=== PATIENT | female | born 1945 | race Caucasian/White ===

== ENCOUNTER → 2017-02-24 | Outpatient (CLI) | payer BC, MEDICARE ==
[~2017-02-24] MED LIST: AML5T; AMLO10TA82 PO; ASP81TEC PO; CARV12.53 PO; CATHETER FLUSH 10 ML SYR IV PRN; HCT25T; IBP200T; MTP25TSR; MULT1CAP27 PO; NITR0.4T12 SL; OLME20TA21 PO; OMEG-12 PO; REGADENOSON 0.4 MG/5 ML SYR (LEXISCAN) IV ONE
[2017-02-24 13:40] VITALS: BP 176/73
[2017-02-24 13:47] VITALS: BP 152/95
--- NOTE | 2017-02-25 11:15 | STRESS TEST ---
DATE OF SERVICE: 02/24/2017 LEXISCAN MYOVIEW STRESS TEST REPORT REFERRING PHYSICIAN: Dr. Angela Verma. Baseline heart rate is 67. Baseline blood pressure 176/73. Baseline EKG is sinus rhythm with no ischemic changes. In summary, the patient was injected with 10.61 mCi of technetium-99 Myoview and the resting images were obtained. Then, the patient received 0.4 mg of Lexiscan followed by 30.3 mCi of technetium-99 Myoview. Throughout the test, there were no EKG changes. The resting and stress images were reviewed and compared in the short axis, horizontal long axis, and vertical long axis views. Review of the images showed breast attenuation with no significant ischemia or infarction. SSS is 1, SDS 1, TID value 1.17. On the gated images, the left ventricle appeared to be in normal size with normal contractility, calculated ejection fraction 69%. CONCLUSION: 1. The patient tolerated Lexiscan well. 2. No ischemia or infarction on SPECT images. 3. Normal left ventricular size with normal contractility. Calculated ejection fraction is 69%. Job ID: [id number] DocumentID: [id number] Dictated Date: 02/24/2017 17:56:37 Home Care Rn Date: 02/24/2017 22:23:07 Dictated By: ALISON MAURO MD
== END ==
LOC: CARD 09:44
PROVIDERS: ATTEND Physician Assistant
DX: I25.10 Atherosclerotic heart disease of native coronary artery without angina pectoris (principal); I10 Essential (primary) hypertension; E78.2 Mixed hyperlipidemia
CPT/HCPCS: 78452; 93017; 93306

== ENCOUNTER → 2019-07-11 | Outpatient (CLI) | payer BC, MEDICARE ==
[~2019-07-11] MED LIST changes: -CATHETER FLUSH 10 ML SYR IV PRN; -REGADENOSON 0.4 MG/5 ML SYR (LEXISCAN) IV ONE
--- NOTE | 2019-07-11 15:58 | Diagnostic Imaging Report ---
CT CHEST WO TECHNIQUE: Multiple contiguous axial images were obtained through the chest without the use of intravenous contrast. All CT scans use one or more of the following dose optimizing techniques: automated exposure control, MA and/or KvP adjustment based on a patient size and exam type, or iterative reconstruction. INDICATION: Dyspnea on exertion. History of smoking. COMPARISON: None available. FINDINGS: Lungs and airway: No endoluminal nodule within the trachea. Centrilobular emphysema is noted. There is near total consolidation within the right lower lobe with associated volume loss. Subtotal relaxation atelectasis within the middle lobe is also seen. Small amount of atelectasis is present in the lingula and left lower lobe. 4 mm left lower lobe pulmonary nodule is present. No suspicious pulmonary mass or nodule. Pleura: Mxafl-rl-tfqiywjp-sized right pleural effusion has no features of loculation. No pleural nodularity is present. Trace left pleural effusion. Heart and mediastinum: Visualized aspects of the thyroid are normal. No supraclavicular or axillary lymphadenopathy. There is an enlarged lower right paratracheal lymph node measuring 1.1 cm. This is likely reactive in nature. No additional hilar lymphadenopathy. No juxtaphrenic lymphadenopathy. Heart is enlarged without pericardial effusion. Extensive atherosclerotic plaquing of the aortic root. Coronary artery calcifications are also noted. Upper abdomen: Atherosclerotic aorta. Prior postoperative changes in the transverse colon. Musculoskeletal: No worrisome focal osseous lesions in the chest. IMPRESSION: 1. Ctxoq-ln-dlyntulq right and trace left pleural effusions. 2. Near total consolidation with volume loss in the right lower lobe is likely due to relaxation atelectasis due to effusion. Underlying infection or neoplasm remains in the differential. Therefore, advised a follow-up CT chest with contrast in 4-6 weeks for reassessment. Dictated by: Dictated on workstation # [id number]
== END ==
LOC: RAD 13:31
PROVIDERS: ATTEND Nurse Practitioner Family
DX: J18.8 Other pneumonia, unspecified organism (principal); J90 Pleural effusion, not elsewhere classified; J18.1 Lobar pneumonia, unspecified organism; Z87.891 Personal history of nicotine dependence
CPT/HCPCS: 71250

== ENCOUNTER → 2019-08-15 | Outpatient (CLI) | payer BC, MEDICARE ==
--- NOTE | 2019-08-15 14:44 | Diagnostic Imaging Report ---
PROCEDURE: CT chest without contrast. TECHNIQUE: Multiple contiguous axial images were obtained through the chest without the use of intravenous contrast. Auto Exposure Controls were utilized during the CT exam to meet ALARA standards for radiation dose reduction. INDICATION: Disorders of the lung, pneumonia, pleural effusion, abnormal prior imaging COMPARISON: 08/15/2019 FINDINGS: A precarinal lymph node is again noted which is mildly enlarged measuring 1.2 cm in short dimension, similar to the prior examination. No new adenopathy within the chest. Extensive vascular calcifications within the thoracic aorta and its branch vessels, including within the coronary arteries. The heart is mildly enlarged, though stable. Trace pericardial fluid, stable. Trace left pleural effusion, improved from the prior examination. Small right pleural effusion, dependently layering, improved from the prior exam. No pneumothorax. Mild left basilar scarring and/or atelectasis, particularly within the lingula. Persistent opacities and consolidation are present within the right lower lobe and right middle lobe. This appears significantly improved though not completely resolved since the prior examination. No new focal pulmonary opacity or nodule. Tiny hiatal hernia. Right-sided abdominal wall hernia is noted anteriorly, though this is only partially visualized. Extensive vascular calcifications within the abdomen. Scattered osseous degenerative changes without acute osseous abnormality. IMPRESSION: Significantly improved though persistent small right basilar pleural effusion with adjacent consolidation within the right lower lobe. This is again favored to relate to relaxation atelectasis secondary to the pleural effusion. Radiographic follow-up is recommended in addition to 4-6 weeks to reevaluate. Trace left pleural effusion with adjacent scarring and/or atelectasis, improved from the prior exam. Stable mediastinal adenopathy. Again, this is favored to be reactive in nature. Partially visualized anterior right abdominal wall hernia. Stable cardiomegaly with trace pericardial fluid. Dictated by: Dictated on workstation # [id number]
== END ==
LOC: RAD 13:58
PROVIDERS: ATTEND Nurse Practitioner Family
DX: J90 Pleural effusion, not elsewhere classified (principal); R91.8 Other nonspecific abnormal finding of lung field; J98.4 Other disorders of lung; R06.89 Other abnormalities of breathing; R59.0 Localized enlarged lymph nodes; K43.9 Ventral hernia without obstruction or gangrene; I51.7 Cardiomegaly
CPT/HCPCS: 71250

== ENCOUNTER → 2019-10-23 | Outpatient (CLI) | payer BC, MEDICARE ==
--- NOTE | 2019-10-23 14:13 | Diagnostic Imaging Report ---
EXAMINATION: CT Chest without contrast. TECHNIQUE: Multiple contiguous axial images were obtained through the chest without the use of intravenous contrast. All CT scans use one or more of the following dose optimizing techniques: automated exposure control, MA and/or KvP adjustment based on a patient size and exam type, or iterative reconstruction. HISTORY: PLEURAL EFFUSION COMPARISON: 08/15/2019. FINDINGS: There is no edema or pneumonia. There is a stable small right pleural effusion with overlying atelectasis. No pneumothorax. No suspicious nodules. The left ventricle is dilated. There are moderate coronary artery calcifications. No pericardial effusion. Aorta is normal in caliber. There is no axillary or supraclavicular lymphadenopathy. There is a stable 11 mm right lower paratracheal lymph node. Limited views of the upper abdomen show a nodular liver surface contour suggestive of cirrhosis. There is a right upper quadrant ventral hernia. There are no suspicious osseus lesions. IMPRESSION: 1. Stable small right pleural effusion with overlying atelectasis. 2. Nodular liver surface suggestive of cirrhosis. Dictated by: Dictated on workstation # [id number]
== END ==
LOC: RAD 13:30
PROVIDERS: ATTEND Nurse Practitioner Family
DX: J90 Pleural effusion, not elsewhere classified (principal); J98.4 Other disorders of lung; J98.11 Atelectasis; R91.8 Other nonspecific abnormal finding of lung field; Z87.891 Personal history of nicotine dependence
CPT/HCPCS: 71250

== ENCOUNTER → 2020-07-02 | Outpatient (CLI) | payer BC, MEDICARE ==
--- NOTE | 2020-07-02 15:08 | Diagnostic Imaging Report ---
EXAMINATION: CT chest wo. TECHNIQUE: Multiple contiguous axial images were obtained through the chest without the use of intravenous contrast. All CT scans use one or more of the following dose optimizing techniques: automated exposure control, MA and/or KvP adjustment based on a patient size and exam type, or iterative reconstruction. INDICATION: Breast cancer. Pleural effusion. COMPARISON: CT chest of 10/23/2019. FINDINGS: Lungs and airway: No endoluminal nodule within the trachea. No pulmonary mass or nodules have developed. Subtotal relaxation atelectasis in the right lower lobe overlying the pleural effusion is unchanged. Pleura: Stable small right pleural effusion. No left pleural effusion. Heart and mediastinum: No supraclavicular or axillary lymphadenopathy. Stable 11 mm right lower paratracheal lymph node. Stable enlargement of the left ventricle. No pericardial effusion. Moderate coronary artery calcifications are unchanged. Extensive atherosclerosis is similar. Upper abdomen: Nodular liver remains compatible with cirrhosis. No acute abnormality in the upper abdomen is appreciated. Musculoskeletal: No concerning focal osseous lesions. IMPRESSION: 1. Stable small right pleural effusion with subjacent atelectasis. 2. No change to indicate intrathoracic metastases. 3. Unchanged cirrhosis. Dictated by: Dictated on workstation # [id number]
== END ==
LOC: RAD 13:17
PROVIDERS: ATTEND Nurse Practitioner Family
DX: C50.919 Malignant neoplasm of unspecified site of unspecified female breast (principal); J44.9 Chronic obstructive pulmonary disease, unspecified; J90 Pleural effusion, not elsewhere classified; K74.60 Unspecified cirrhosis of liver
CPT/HCPCS: 71250

== ENCOUNTER → 2021-02-18 | Outpatient (CLI) | payer BC, MEDICARE | LOC: CARD 14:00 | PROVIDERS: ATTEND Physician Assistant | DX: I11.9 Hypertensive heart disease without heart failure (principal); I34.0 Nonrheumatic mitral (valve) insufficiency | CPT/HCPCS: 93306 ==

== ENCOUNTER 2022-01-08 08:50 | Inpatient (IN) | payer BC, MEDICARE ==
[~2022-01-08] VITALS: Ht 147.3 cm; Wt 68.0 kg
[2022-01-08 13:20] VITALS: BP 187/78
[2022-01-08] MEDS ORDERED: CALCIUM CARBONATE 500 MG (TUMS) TAB.CHEW PO PRN (13:45)
[2022-01-08] MEDS ORDERED: guaiFENesin/CODEINE (ROBITUSSIN AC) 10ML UDC PO PRN (13:45)
[2022-01-08] MEDS ORDERED: LACTULOSE SYRUP 10GM/15ML (ENULOSE) 30ML UDC PO PRN (13:45)
[2022-01-08] MEDS ORDERED: BISACODYL 10 MG SUPP (DULCOLAX) PR PRN (13:45)
[2022-01-08] MEDS ORDERED: ONDANSETRON 4 MG (ZOFRAN) ORAL DISSOLVE TAB PO PRN (13:45)
[2022-01-08] MEDS ORDERED: DOCUSATE SODIUM 100 MG (COLACE) CAP PO PRN (13:45)
[2022-01-08] MEDS ORDERED: MELATONIN 3 MG TABLET PO PRN (13:45)
[2022-01-08] MEDS ORDERED: diphenhydrAMINE 25 MG TAB (BENADRYL) PO PRN (13:45)
[2022-01-08] MEDS ORDERED: ALPRAZolam 0.25 MG (XANAX) TAB PO PRN (13:45)
[2022-01-08] MEDS ORDERED: FLEET ENEMA ADULT 1 EA BTL PR PRN (13:45)
[2022-01-08] MEDS ORDERED: LOPERAMIDE 2 MG (IMODIUM) TABLET PO PRN (13:45)
--- NOTE | 2022-01-08 14:06 | Physical Therapy Evaluation ---
PT Evaluation-General Medical Diagnosis Admission Date Jan 08, 2022 at 13:33 Medical Diagnosis: Rhabdomyolysis Onset Date: Dec 31, 2021 Therapy Diagnosis Therapy Diagnosis: generalized weakness/debility Precautions Precautions/Isolations: Fall Prevention, Standard Precautions Referral Physician: Dimple Reason for Referral: Evaluation/Treatment Medical History Pertinent Medical History: CAD, HTN, Renal Insufficiency Additional Medical History s/p fall at home and on floor x 20 hours Current History Rhabdomyolysis Reviewed History: Yes Social History Home: Multilevel Current Living Status: Alone Entry Into Home: Stairs With Railing PT Steps Into Home: 2 PT Steps Inside Home: 15 Prior Prior Level of Function SCALE: Activities may be completed with or without assistive devices. 6-Evuvhtmuob-lrjvavg completes the activity by him/herself with no assistance from a helper. 5-Set-up or Clean-up Assistance-helper sets up or cleans up; patient completes activity. [place] assists only prior to or following the activity. 4-Supervision or Touching Assistance-helper provides verbal cues and/or touching/steadying and/or contact guard assistance as patient completes activity. Assistance may be provided throughout the activity or intermittently. 3-Partial/Moderate Assistance-helper does LESS THAN HALF the effort. [place] lifts, holds or supports trunk or limbs, but provides less than half the effort. 2-Substantial/Maximal Assistance-helper does MORE THAN HALF the effort. [place] lifts or holds trunk or limbs and provides more than half the effort. 3-Sbfqdwevy-mqpwid does ALL the effort. Patient does none of the effort to complete the activity. Or, the assistance of 2 or more helpers is required for the patient to complete the activity. If activity was not attempted, code reason: 7-Patient Refused. 9-Not Applicable-not attempted and the patient did not perform the activity before the current illness, exacerbation or injury. 10-Not Attempted due to Environmental Limitations-(lack of equipment, weather restraints, etc.). 88-Not Attempted due to Medical Conditions or Safety Concerns. Bed Mobility: 6 Transfers (B,C,W/C): 6 Gait: 6 Stairs: 6 Wheelchair Mobility: 9 Indoor Mobility (Ambulation): Independent Stairs: Independent Prior Devices Use: Walker (PRN), Other-see list below Prior Device Use: cane PRN PT Evaluation-Current Subjective Patient agrees to therapy. Patient extremely fatigue, [place] with OT to conserve patients functional mobility and strength. Objective Patient Orientation: Normal For Age ROM/Strength ROM Lower Extremities bilateral LE limited due to edema Strength Lower Extremities right knee flexion/extension 3/5; hip flexion 3-/5; DF/PF 3/5 left knee flexion/extension 3-/5; hip flexion 3-/5; DF/PF 3/5 Integumentary/Posture Integumentary refer to nursing notes Bowel Incontinence: No Bladder Incontinence: No Posture slight trunk flexed posture Neuromuscular (Tone, Coordination, Reflexes) grossly intact Sensory Vision: Wears Glasses Hearing: Functional Sensation Right Lower Extremit: Intact Sensation Left Lower Extremity: Intact Transfers Roll Left & Right (QC): 4 Sit to Lying (QC): 3 (mod assist) Lying to Sitting/Side of Bed(Q: 4 Sit to Stand (QC): 4 Chair/Bnf-wn-Dwsai Xfer(QC): 4 Toilet Transfer (QC): 3 Car Transfer (QC): 3 (to assist left LE) Gait Does the Patient Walk?: Yes Mode of Locomotion: Walk Anticipated Mode of Locomotion: Walk Walk 10 feet (QC): 4 Walk 50 ft with 2 Turns(QC): 4 Walk 150 ft (QC): 4 Walking 10ft/uneven surface-QC: 4 Distance: 150' x 2 Gait Assistive Device: FWW Comments/Gait Description slow, steady, functional gait sequence Wheelchair Training Wheel 50 ft with 2 turns (QC): 9 Wheel 150 ft (QC): 9 Type of Wheelchair: N/A Stairs #of Steps: 4 1 Step (curb) (QC): 3 4 Steps (QC): 3 12 Steps (QC): 88 Balance Sitting Static: Normal Sitting Dynamic: Normal Standing Static: Normal Standing Dynamic: Normal Picking up an Object (QC): 4 Treatment Cotreat with OT x 20 min with PT addressing dynamic balance with OT addressing standing ADL's to take a shower. Assessment/Needs Patient will benefit from skilled PT to address functional strength and mobility to improve current LOF. Patient had Covid 04/2021 and, per her report, has never regained bilateral LE strength. Patient also presents with limited bilateral LE ROM due to edema. Rehab Potential: Fair PT Methods Engineer Goals Methods Engineer Goals PT Methods Engineer Goals Time Frame: Feb 07, 2022 Roll Left & Right (QC): 6 Sit to Lying (QC): 6 Lying-Sitting on Side/Bed(QC): 6 Sit to Stand (QC): 6 Chair/Sva-rf-Fkvhn Xfer(QC): 6 Toilet Transfer (QC): 6 Car Transfer (QC): 6 Does the Patient Walk: Yes Walk 10 feet (QC): 6 Walk 50ft with 2 Turns (QC): 6 Walk 150 ft (QC): 6 Walking 10ft on Uneven Surface: 6 1 Step (curb) (QC): 6 4 Steps (QC): 4 12 Steps (QC): 4 Picking up an Object (QC): 6 Wheel 50 feet with 2 turns (QC: 9 Type: N/A Wheel 150 feet: 9 Type: N/A PT Plan Problem List Problem List: Activity Tolerance, Functional Strength, Safety, Balance, Gait, Transfer, Bed Mobility Treatment/Plan Treatment Plan: Continue Plan of Care Treatment Plan: Bed Mobility, Concurrent Therapy, Education, Functional Activity Naomie, Functional Strength, Group Therapy, Gait, Safety, Therapeutic Exercise, Transfers Treatment Duration: Feb 07, 2022 Frequency: At least 5 of 7 days/Wk (IRF) Estimated Hrs Per Day: 1.5 hours per day Patient and/or Family Agrees t: Yes Safety Risks/Education Patient Education: Steps Teaching Recipient: Patient, Primary Caregiver Response to Teaching: Return Demonstration Discharge Recommendations Therapy Discharge Recommendati: Post Acute PT Time/GCodes Time In: 1330 Time Out: 1400 Total Billed Treatment Time: 30 Total Billed Treatment 1 visit EVModC 10 min FA 20 min (co treat with OT [id number]) SHELLIE CORREA PT Jan 08, 2022 14:06
--- NOTE | 2022-01-08 14:25 | Occupational Therapy Eval ---
OT Evaluation-General/PLF Medical Diagnosis Admission Date Jan 08, 2022 at 13:33 Medical Diagnosis: Rhabdomyolysis Onset Date: Dec 31, 2021 Therapy Diagnosis Therapy Diagnosis: decreased ADL status, weakness Precautions Precautions/Isolations: Fall Prevention, Standard Precautions Referral Physician: Dimple Chinchilla Reason: Evaluation/Treatment Medical History Pertinent Medical History: CAD, HTN, Renal Insufficiency Additional Medical History HTN Current History ED 12/29 after fall the night before, down on ground 20 hrs. Neighbor found her the next evening, contusion to R hip and back. Social History Home: Multilevel Current Living Status: Alone Entry Into Home: Stairs With Railing Steps Into Home: 2 Steps Inside Home: 15 ADL-Prior Level of Function SCALE: Activities may be completed with or without assistive devices. 7-Ionjvkbwcq-eboqrwz completes the activity by him/herself with no assistance from a helper. 5-Set-up or Clean-up Assistance-helper sets up or cleans up; patient completes activity. [place] assists only prior to or following the activity. 4-Supervision or Touching Assistance-helper provides verbal cues and/or touching/steadying and/or contact guard assistance as patient completes a ctivity. Assistance may be provided throughout the activity or intermittently. 3-Partial/Moderate Assistance-helper does LESS THAN HALF the effort. [place] lifts, holds or supports trunk or limbs, but provides less than half the effort. 2-Substantial/Maximal Assistance-helper does MORE THAN HALF the effort. [place] lifts or holds trunk or limbs and provides more than half the effort. 5-Eyzacgmfv-devowr does ALL the effort. Patient does none of the effort to complete the activity. Or, the assistance of 2 or more helpers is required for the patient to complete the activity. If activity was not attempted, code reason: 7-Patient Refused. 9-Not Applicable-not attempted and the patient did not perform the activity before the current illness, exacerbation or injury. 10-Not Attempted due to Environmental Limitations-(lack of equipment, weather restraints, etc.). 88-Not Attempted due to Medical Conditions or Safety Concerns. ADL PLOF Comments Pt lives in 2 story house, 2 steps to enter. Pt's bedroom and bathroom are located up 15 steps on the 2nd level of the home. Pt previously worked 39 hours a week at [employer], but has been unable to work since she had COVID in April. She has a tub/shower unit, no SC. She was independent with ADLs and functional mobility at [facility], no AD. Self Care: Independent Functional Cognition: Independent OT Current Status Subjective Pt arrived via transport by private vehicle. Agreeable to OT evaluation and then tx. Mental Status/Objective Patient Orientation: Person, Place, Time, Situation Current Glasses/Contacts: Yes Hand Dominance: Right Upper Extremity ROM WFL Upper Extremity Coordination WFL Upper Extremity Strength grossly 3+/5 ADL-Treatment Eating (QC): 5 (Per pt report and clinical judgement) Oral Hygiene (QC): 4 (Per clincial judgment, SBA) Shower/Bathe Self (QC): 7 Upper Body Dressing (QC): 5 (Set up, pt able to doff jacket and shirt in standing.) Lower Body Dressing (QC): 7 On/Off Footwear (QC): 7 Toileting Hygiene (QC): 4 (CGA. Pt able to manage hygiene and clothing management) Other Treatments Pt arrived via private vehicle. Min A to transfer out of car (assist with LLE). Pt taken to ARU into her room bathroom. CGA transfer from w/c to toilet. Pt completed toileting, then completed PT evaluation (not billed). OT/PT cotreat due to skill of 2 clinicians required which a clinical rehabilitation coordinator could not perform in order to coordinate UE/LEs, decrease fall risk, and due to pt's limitations in fatigue, activity tolerance, strength and mobility/transfers. OT focused on ADLs, UE placement, and cues for sequencing and safety, PT focused on LE placement, gross overall movement, transfers and mobility. Pt used FWW to transfer into bathroom, doffed UE clothing in standing with set up assist. Pt then transferred to shower bench to doff LB clothing, able to doff pants with Supervision, and min A with footwear due to pt having tedhose on. Pt completed shower, able to stand to wash periarea/buttocks. MEDELLIN present to take over tx, refer to COTAs note for further treatment information. Post tx, pt in room with MEDELLIN and PT, all needs met. Education OT Patient Education: Correct positioning, Energy conservation, Exercise program, Modified ADL techniques, Progress toward Goal/Update tx plan, Purpose of tx/functional activities, Rehab process, Safety issues, Transfer techniques Teaching Recipient: Patient Teaching Methods: Discussion Response to Teaching: Verbalize Understanding OT Short Term Goals Short Term Goals Time Frame: Jan 16, 2022 Oral hygiene: 5 Shower/bathe self: 5 Lower body dressin Putting on/taking off footwear: 5 OT Hot Die Press Operator Goals Care Home Goals Time Frame: Jan 30, 2022 Eating (QC): 6 Oral Hygiene (QC): 6 Toileting Hygiene (QC): 6 Shower/Bathe Self (QC): 6 Upper Body Dressing (QC): 6 Lower Body Dressing (QC): 6 On/Off Footwear (QC): 6 Additional Goals: 1-Demonstrate ADL Tasks, 2-Verbalize Understanding, 3- ImproveStrength/Naoime 1=Demonstrate adherence to instructed precautions during ADL tasks. 2=Patient will verbalize/demonstrate understanding of assistive devices/modifications for ADL. 3=Patient will improve strength/tolerance for activity to enable patient to perform ADL's. OT Education/Plan Problem List/Assessment Assessment: Decreased Activ Tolerance, Decreased UE Strength, Impaired Funct Balance, Impaired I ADL's, Impaired Self-Care Skills Discharge Recommendations Plan/Recommendations: Continue POC Treatment Plan/Plan of Care Patient would benefit from OT for education, treatment and training to promote independence in ADL's, mobility, safety and/or upper extremity function for ADL's. Plan of Care: ADL Retraining, Functional Mobility, Group Exercise/Act as Ind, UE Funct Exercise/Act Treatment Duration: Jan 30, 2022 Frequency: At least 5 of 7 days/Wk (IRF) Estimated Hrs Per Day: 1.5 hours per day Rehab Potential: Fair Time/GCodes Start Time: 13:20 Stop Time: 14:05 Total Time Billed (hr/min): 35 Billed Treatment Time 6917-5855 OT eval (10'), [id number] PT eval (not billed), [id number] Cot[place] (25') 1, EVL (10'). ADL (25') MEHUL CHOUDHARY OT Jan 08, 2022 14:25
[2022-01-08] MEDS ORDERED: MENT113O12 TP (14:36)
[2022-01-08] MEDS ORDERED: OMEG100032 PO (14:36)
[2022-01-08] MEDS ORDERED: ALB0.5V INH (14:36)
[2022-01-08] MEDS ORDERED: POTA-160 PO (14:36)
[2022-01-08] MEDS ORDERED: CHOL4POW13 PO (14:36)
[2022-01-08] MEDS ORDERED: ACET325T38 PO (14:36)
[2022-01-08] MEDS ORDERED: CALC500T35 PO (14:36)
[2022-01-08] MEDS ORDERED: LACTINEX PO (14:36)
[2022-01-08] MEDS ORDERED: NIFE90TA57 PO (14:36)
[2022-01-08] MEDS ORDERED: GLUC-219 PO (14:36)
[2022-01-08] MEDS ORDERED: ACID1TAB PO (14:36)
[2022-01-08] MEDS ORDERED: FAMO20TA5 PO (14:36)
[2022-01-08] MEDS ORDERED: ASPI-1238 PO (14:36)
[2022-01-08] MEDS ORDERED: LOSA100T57 PO (14:36)
[2022-01-08] MEDS ORDERED: FURO40TA4 PO (14:36)
[2022-01-08] MEDS ORDERED: CARV3.122 PO (14:36)
[2022-01-08] MEDS ORDERED: NF-SODBICA PO (14:36)
--- NOTE | 2022-01-08 15:03 | Occupational Ther Daily Note ---
OT Current Status-Daily Note Subjective Pt in shower upon arrival and agreed to OT/PT tx. ADL-Treatment Therapy Code Descriptions/Definitions Functional [place] Measure: 0=Not Assessed/NA 4=Minimal Assistance 1=Total Assistance 5=Supervision or Setup 2=Maximal Assistance 6=Modified [place] 3=Moderate Assistance 7=Complete IndependenceSCALE: Activities may be completed with or without assistive devices. 9-Ebhjugehgd-ptfyxkn completes the activity by him/herself with no assistance f rom a helper. 5-Set-up or Clean-up Assistance-helper sets up or cleans up; patient completes activity. [place] assists only prior to or following the activity. 4-Supervision or Touching Assistance-helper provides verbal cues and/or touching/steadying and/or contact guard assistance as patient completes activity. Assistance may be provided throughout the activity or intermittently. 3-Partial/Moderate Assistance-helper does LESS THAN HALF the effort. [place] lifts, holds or supports trunk or limbs, but provides less than half the effort. 2-Substantial/Maximal Assistance-helper does MORE THAN HALF the effort. [place] lifts or holds trunk or limbs and provides more than half the effort. 9-Hvwrmbugm-tyyewh does ALL the effort. Patient does none of the effort to complete the activity. Or, the assistance of 2 or more helpers is required for the patient to complete the activity. If activity was not attempted, code reason: 7-Patient Refused. 9-Not Applicable-not attempted and the patient did not perform the activity before the current illness, exacerbation or injury. 10-Not Attempted due to Environmental Limitations-(lack of equipment, weather restraints, etc.). 88-Not Attempted due to Medical Conditions or Safety Concerns. Shower/Bathe Self (QC): 5 (set up) Lower Body Dressing (QC): 3 (ModA) On/Off Footwear: 2 (MaxA) Other Treatment OT/PT cotreat ([id number]): Pt completed shower with set up assist. Pt donned pants with ModA due to limited reach. Pt donned shirt with set up assist, standing. Therapist donned roxann hose and pt donned shoes with MaxA due to limited reach. Pt ambulated with FWW to recliner to complete LE exercises to increase strength and endurance. Pt then ambulated to therapy gym with CGA with FWW to complete balloon volleyball standing to increase endurance and dynamic standing balance. Pt required a rest break. Pt ambulated around commons area and back to room. Pt seated in recliner with call light and phone in reach with all needs met. 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 2=Patient will verbalize/demonstrate understanding of assistive devices/modifications for ADL. 3=Patient will improve strength/tolerance for activity to enable patient to perform ADL's. OT Education/Plan Problem List/Assessment Assessment: Decreased Activ Tolerance, Decreased UE Strength, Impaired Bed Mobility, Impaired Funct Balance, Impaired I ADL's, Impaired Self-Care Skills Discharge Recommendations Plan/Recommendations: Continue POC Treatment Plan/Plan of Care Patient would benefit from OT for education, treatment and training to promote independence in ADL's, mobility, safety and/or upper extremity function for A DL's. Plan of Care: ADL Retraining, Functional Mobility, Group Exercise/Act as Ind, UE Funct Exercise/Act Treatment Duration: Jan 30, 2022 Frequency: At least 5 of 7 days/Wk (IRF) Estimated Hrs Per Day: 1.5 hours per day Rehab Potential: Fair Time/GCodes Start Time: 14:05 Stop Time: 15:00 Total Time Billed (hr/min): 55 Billed Treatment Time 1, ADL 3 (40min), FA (15min) Aicha Sorai Jan 08, 2022 15:03
--- NOTE | 2022-01-08 15:10 | Physical Therapy Daily Note ---
PT Daily Note-Current Subjective Patient in bathroom with OT finishing treatment. Patient agreeable to treatment upon leaving [facility]. Patient will be co-treated by PT/OT due to the patient needs of both disciplines for safe and effective treatment with PT focusing on LE/Core strength, balance and gait while OT provides treatment to improve UE strength, function and ADLs Mental Status Patient Orientation: Person, Place, Time, Situation Transfers SCALE: Activities may be completed with or without assistive devices. 3-Dczweehmpr-kjjbemg completes the activity by him/herself with no assistance from a helper. 5-Set-up or Clean-up Assistance-helper sets up or cleans up; patient completes activity. [place] assists only prior to or following the activity. 4-Supervision or Touching Assistance-helper provides verbal cues and/or touching/steadying and/or contact guard assistance as patient completes activity. Assistance may be provided throughout the activity or intermittently. 3-Partial/Moderate Assistance-helper does LESS THAN HALF the effort. [place] lifts, holds or supports trunk or limbs, but provides less than half the effort. 2-Substantial/Maximal Assistance-helper does MORE THAN HALF the effort. [place] lifts or holds trunk or limbs and provides more than half the effort. 8-Dawabruvp-qtpwov does ALL the effort. Patient does none of the effort to complete the activity. Or, the assistance of 2 or more helpers is required for the patient to complete the activity. If activity was not attempted, code reason: 7-Patient Refused. 9-Not Applicable-not attempted and the patient did not perform the activity before the current illness, exacerbation or injury. 10-Not Attempted due to Environmental Limitations-(lack of equipment, weather restraints, etc.). 88-Not Attempted due to Medical Conditions or Safety Concerns. Roll Left & Right (QC): 9 Sit to Lying (QC): 9 Lying to Sitting/Side of Bed(Q: 9 Sit to Stand (QC): 4 Chair/Gxn-xc-Srrdo Xfer(QC): 4 Toilet Transfer (QC): 4 Weight Bearing Right Lower Extremity: Right Full Weight Bearing Left Lower Extremity: Left Full Weight Bearing Gait Training Does the Patient Walk?: Yes Distance: 200, 100 Walk 10 feet (QC): 4 Walk 50 ft with 2 Turns(QC): 4 Walk 150 ft (QC): 4 Gait Assistive Device: FWW Exercises Seated Therapy Exercises: Ankle pumps, Long arc quads, Hip flexion, Hamstring Curls, Hip abd/add Seated Reps: 20 Treatments Dynamic standing balance activities with OT co-treatment to better accommodate the patient. Assessment Current Status: Fair Progress Patient tolerated treatment well. Demonstrates good overall balance in standing activities, transfers and overall mobility. Patient reports she has been sleeping in the recliner and requests not to get into the bed currently. Patient ambulates 100 feet, 200 feet with FWW, with SBA and verbal cues for progression. Patient in chair post treatment with all needs met, nursing notified, call light in reach. PT Detention Goals Detention Goals PT Detention Goals Time Frame: Feb 07, 2022 Roll Left & Right (QC): 6 Sit to Lying (QC): 6 Lying-Sitting on Side/Bed(QC): 6 Sit to Stand (QC): 6 Chair/Sys-ar-Gquzu Xfer(QC): 6 Toilet Transfer (QC): 6 Car Transfer (QC): 6 Does the Patient Walk: Yes Walk 10 feet (QC): 6 Walk 50ft with 2 Turns (QC): 6 Walk 150 ft (QC): 6 Walking 10ft on Uneven Surface: 6 1 Step (curb) (QC): 6 4 Steps (QC): 4 12 Steps (QC): 4 Picking up an Object (QC): 6 Wheel 50 feet with 2 turns (QC: 9 Type: N/A Wheel 150 feet: 9 Type: N/A PT Plan Problem List Problem List: Activity Tolerance, Functional Strength, Safety, Gait, Transfer Treatment/Plan Treatment Plan: Continue Plan of Care Treatment Plan: Bed Mobility, Concurrent Therapy, Education, Functional Activity Naomie, Functional Strength, Group Therapy, Gait, Safety, Therapeutic Exercise, Transfers Treatment Duration: Feb 07, 2022 Frequency: At least 5 of 7 days/Wk (IRF) Estimated Hrs Per Day: 1.5 hours per day Patient and/or Family Agrees t: Yes Safety Risks/Education Patient Education: Gait Training, Transfer Techniques Teaching Recipient: Patient Teaching Methods: Demonstration, Discussion Response to Teaching: Verbalize Understanding, Return Demonstration Time/GCodes Time In: 1400 Time Out: 1500 Total Billed Treatment Time: 60 Total Billed Treatment Visit, FA (2), Gait, Ex (Co-Treat with OT 60 minutes) MELYSSA LOPEZ PT Jan 08, 2022 15:09
--- NOTE | 2022-01-08 18:17 | PM&R Post Admission Assessment ---
PM&R HP Date of Visit: Jan 08, 2022 Time of Visit: 18:40 History of Present Illness CC: Debility following rhabdomyolysis after found down on floor for 20+ hours HPI: This is a 76yoWF clinic patient of Dr Verma who presents to ARU from [facility] after falling at home and found down at home by a neighbor. She was admitted on 12/29/2021 and has been provided supportive care but she continues to have severe weakness and debility. She reports she had never regained her strength following COVID 04/2021. She sees a Senior Windows Systems Administrator regularly and she has severe chronic ly mphedema which limits her mobility. She suffered contusions on her back and chest. Her bowels are moving and she is voiding well. Past Rkowujp-Lndrgj-Rsudag Hx Past Med/Social Hx: Reviewed Nursing Past Med/Soc Hx, Reviewed and Corrections made Patient Social History Marrital Status: single Employed/Student: retired Alcohol Use: Occasionally Uses Smoking Status: Never a Smoker Past Medical History Cardiac: Coronary Artery Disease, High Cholesterol, Hypertension Genitourinary: Renal Failure Prior Level of Function Bed Mobility: 6 Transfers: 6 Gait: 6 Stairs: 6 Wheelchair Mobility: 9 Indoor Mobility (Ambulation): Independent Stairs: Independent Prior Devices Use: Walker (PRN), Other-see list below cane PRN Self Care: Independent Functional Cognition: Independent Current Level of Fuctioning Roll Left to Right: 9 Sit to Lyin Lying to Sitting/Side of Bed: 9 Sit to Stand: 4 Chair/Pcb-ya-Vaxfy Xfer: 4 Car Transfer: 3 (to assist left LE) Does the Patient Walk: Yes Mode of Locomotion: Walk Anticipated Mode of Locomotion: Walk Walk 10 feet: 4 Walk 50 ft with 2 Turns: 4 Walk 150 ft: 4 Walking 10ft on uneven surface: 4 Gait Assistive Device: FWW Wheel 50 ft with 2 turns: 9 Wheel 150 ft: 9 Type of Wheelchair: N/A #of Steps: 4 1 Step (curb): 3 4 Steps: 3 12 Steps: 88 Picking up an Object: 4 Eatin (Per pt report and clinical judgement) Oral Hygiene: 4 (Per clincial judgment, SBA) Shower/Bathe Self: 5 (set up) Upper Body Dressin (Set up, pt able to doff jacket and shirt in standing.) Lower Body Dressin (ModA) On/Off Footwear: 2 (MaxA) Toileting Hygiene: 4 (CGA. Pt able to manage hygiene and clothing management) PM&R Allergy/Meds/Data Review Allergies Coded Allergies: Sulfa (Sulfonamides) (Verified Allergy, Unknown, 05/18/07) Home Medications Scheduled Albuterol Sulfate (Albuterol Sulfate), 2.5 MG INH QID, (Reported) Aspirin (Aspirin EC), 81 MG PO DAILY, (Reported) Calcium Carbonate (Oyster Shell Calcium), 500 MG PO BID, (Reported) Carvedilol (Carvedilol), 3.125 MG PO BID, (Reported) Famotidine (Famotidine), 20 MG PO BID, (Reported) Glucosamine/D3/Boswellia Rika (Osteo Bi-Flex Tablet), 1 EACH PO DAILY, (Reported) L. Acidophilus/Bulgaricus (Floranex Tablet), 1 EACH PO BID, (Reported) Losartan Potassium (Losartan Potassium), 100 MG PO DAILY, (Reported) Nifedipine (Nifedipine ER), 90 MG PO DAILY, (Reported) [place]-3/Dha/Epa/Fish Oil (Fish Oil 1,000 mg Softgel), 1,000 MG PO DAILY, (Reported) Potassium Chloride (Klor-Con 10), 10 MEQ PO DAILY, (Reported) Sodium Bicarbonate (Sodium Bicarbonate), 650 MG PO BID, (Reported) Scheduled PRN Acetaminophen (Tylenol), 325 MG PO Q6H PRN for PAIN-MILD (1-4), (Reported) Cholestyramine/Aspartame (Cholestyramine Light Packet), 4 GM PO UD PRN for DIARRHEA, (Reported) Furosemide (Furosemide), 40 MG PO DAILY PRN for FLUID RETENTION, (Reported) Menthol/Zinc Oxide (Menthol-Zinc Oxide Ointment), 1 APPLIC TP BID PRN for RASH, (Reported) Discontinued Medications Amlodipine Besylate (Norvasc Tablet), 1 EACH PO DAILY, (Reported) Discontinued Reason: No Longer Taking Aspirin (Aspirin Ec 81 Mg), 81 MG PO DAILY, (Reported) Discontinued Reason: No Longer Taking Benicar Hct (Benicar 20 Mg), 1 EACH PO DAILY, (Reported) Discontinued Reason: No Longer Taking Carvedilol (Carvedilol), 1 EACH PO BID, (Reported) Discontinued Reason: No Longer Taking Hydrochlorothiazide (Hydrochlorothiazide), (Reported) Discontinued Reason: No Longer Taking Ibuprofen (Motrin), (Reported) Discontinued Reason: No Longer Taking Multivitamins (Multivitamins), 1 EACH PO DAILY, (Reported) Discontinued Reason: No Longer Taking Nitroglycerin (Nitroquick), 0.4 MG SL PRN, (Reported) Discontinued Reason: No Longer Taking [place]-3/Dha/Epa/Fish Oil (Fish Oil 1,000 Mg Ec Softgel), 1 EACH PO DAILY, (Repo rted) Discontinued Reason: No Longer Taking [Lactinex Chew], 1 EA PO BID, (Reported) Discontinued Reason: Duplicate Order Current Medications Current Medications Reviewed Review of Systems Constitutional: see HPI, malaise, weakness EENTM: no symptoms reported Respiratory: no symptoms reported Cardiovascular: edema Gastrointestinal: no symptoms reported Genitourinary: no symptoms reported Musculoskeletal: back pain, joint pain, muscle pain, muscle stiffness, muscle cramps Skin: no symptoms reported Psychiatric/Neurological: Anxiety All Other Systems Reviewed Negative Unless Noted: Yes Physical Exam Physical Exam Vital Signs Vital Signs - First Documented 01/08/22 13:20 Temp 36.9 Pulse 90 Resp 20 B/P (MAP) 187/78 (114) Pulse Ox 93 O2 Delivery Room Air Capillary Refill : Height, Weight, BMI Height: '" Weight: lbs. oz. kg; 31.52 BMI Method: General Appearance: No Apparent Distress, WD/WN, Chronically ill, Obese Eyes: Bilateral Eye Normal Inspection, Bilateral Eye PERRL HEENT: PERRL/EOMI, Normal ENT Inspection, Pharynx Normal Neck: Full Range of Motion, Normal Inspection, Non Tender, Supple, Carotid Bruit Respiratory: Chest Non Tender, Lungs Clear, Normal Breath Sounds, No Accessory Muscle Use, No Respiratory Distress Cardiovascular: Regular Rate, Rhythm, No Edema, No Gallop, No JVD, No Murmur, Normal Peripheral Pulses Gastrointestinal: Normal Bowel Sounds, No Organomegaly, No Pulsatile Mass, Non Tender, Soft Back: Normal Inspection, No CVA Tenderness, No Vertebral Tenderness Extremity: Normal Capillary Refill, Normal Inspection, Normal Range of Motion, Non Tender, No Calf Tenderness, No Pedal Edema Neurologic/Psychiatric: Alert, Oriented x3, Normal Mood/Affect, zoo keeper II-XII Norm as Tested, Abnormal Gait, Motor Weakness (generalized weakness all extremities) Skin: Normal Color, Warm/Dry Lymphatic: No Adenopathy PM&R Medical Assessment & Plan REHAB/MEDICAL ASSESSMENT AND PLAN: REHAB IMPAIRMENT GROUP: [ ] ETIOLOGIC DIAGNOSIS: [ (condition that led to rehab admission) ] The comorbidities that impact the patients function and/or functional outcome by: [ ] REHAB PLAN: The patient is being admitted to our comprehensive inpatient rehabilitation facility and can tolerate the intensity of service consisting of at least: 180 minutes of therapy a day, 5 out of 7 days a week Rehab treatment will consist of: [ (write brief focus that includes physician, rehab nursing and therapies/modalitiesIPOC will have more specifics) ] The patient/family has a good understanding of our discharge process and will benefit from an interdisciplinary inpatient rehabilitation program. The patient has potential to make improvement and is in need of at least two of the following multidisciplinary therapies including but not limited to physical, occupational, speech, and prosthetics and orthotics. Additionally the patient will need services from respiratory, nutritional services, wound care, psychology, etc. (Customize this to each patient). Given the patients complex condition and risk of further medical complications, rehabilitation services cannot be safely or effectively provided at a lower level of care such as a half-way facility. BARRIERS TO DISCHARGE: [ ] ESTIMATED LOS: [ ] DISPOSITION: [ ] RELEVANT CHANGES SINCE PREADMISSION SCREENING: I have compared the patients medical and functional status at the time of the preadmission screening and there are: [no changes] [changes as follows: (if there is a discrepancy between the IGC/Etiologic stated on the PAS, address/clarify this as well) ] PROGNOSIS: [ ] REHABILITATION GOALS: 1. [ (specific to the patient) ] All the above goals were reviewed with the patient and he/she is in agreement. By signing this document, I acknowledge that I have personally performed a full physical examination on this patient within 24 hours of admission to this inpatient rehabilitation facility and have determined the patient to be able to tolerate the above course of treatment at an intensive level for a reasonable period of time. I will be completing a detailed individualized Plan of Care for this patient by day #4 of the patients stay based upon the Preadmission Screen, the Post-Admission Evaluation, and the therapy evaluations. Admission Dx/Comorbidities: (1) Rhabdomyolysis ICD Codes: M62.82 - Rhabdomyolysis (2) CKD (chronic kidney disease) ICD Codes: N18.9 - Chronic kidney disease, unspecified (3) CAD (coronary artery disease) ICD Codes: I25.10 - Atherosclerotic heart disease of [place] coronary artery without angina pectoris (4) Lymphedema ICD Codes: I89.0 - Lymphedema, not elsewhere classified (5) Anemia ICD Codes: D64.9 - Anemia, unspecified (6) Fall ICD Codes: W19.XXXA - Unspecified fall, initial encounter (7) Metabolic acidosis ICD Codes: E87.2 - Acidosis (8) Myopathy ICD Codes: G72.9 - Myopathy, unspecified Assessment/Plan Assessment and Plan Assess & Plan/Chief Complaint Assessment: Debility following fall at home with rhabdomyolysis CKD HTN CAD Anemia Metabolic acidosis Lymphedema chronic Plan: Home meds Monitor kidneys PT OT Fall risk CHELA BROOKS DO Jan 08, 2022 18:17
[2022-01-08] MEDS ORDERED: MENTHOL/ZINC OXIDE (CALMOSEPTINE) 113 GM TUBE TP PRN (18:30)
[2022-01-08] MEDS ORDERED: CHOLESTYRAMINE 4 GM (QUESTRAN LITE, PREVALITE) PKT PO PRN (18:30)
[2022-01-08] MEDS: RT-ALBUTEROL SULF 2.5 MG/3 ML PRE-MIX VIAL INH SCH (19:59)
[2022-01-08 20:15] VITALS: BP 187/79
[2022-01-08] MEDS: polyethylene glycoL POWDER 17 GM (MIRALAX) PACK PO SCH (20:30)
[2022-01-08] MEDS: DOCUSATE SODIUM 100 MG (COLACE) CAP PO SCH (20:30)
[2022-01-08] MEDS: SENNA W/DOCUSATE (SENOKOT S) TABLET PO SCH (20:30)
[2022-01-08] MEDS ORDERED: BULGARICUS PO SCH (21:00)
[2022-01-08] MEDS ORDERED: CALCIUM CARBONATE 500 MG PO SCH (21:00)
[2022-01-08] MEDS ORDERED: ACIDOPHILUS PO SCH (21:00)
[2022-01-08] MEDS: LACTOBACILLUS ACIDOPHILUS (PROBIOTIC) CAPSULE PO SCH (21:57)
[2022-01-08] MEDS: SODIUM BICARBONATE 650 MG TABLET PO SCH (21:57)
[2022-01-08] MEDS: FAMOTIDINE 20 MG (PEPCID) TABLET PO SCH (21:57)
[2022-01-09 05:54] LABS: BASOPHILS % (AUTO) 1 % (0-10); EOSINOPHILS # (AUTO) 0.1 10^3/uL (0.0-0.3); EOSINOPHILS % (AUTO) 2 % (0-10); HEMATOCRIT 28 % (35-52); HEMOGLOBIN 9.2 g/dL (11.5-16.0); LYMPHOCYTES # (AUTO) 0.7 10^3/uL (1.0-4.0); LYMPHOCYTES % (AUTO) 14 % (12-44); MEAN CORPUSCULAR HEMOGLOBIN 32 pg (25-34); MEAN CORPUSCULAR HGB CONC 34 g/dL (32-36); MEAN CORPUSCULAR VOLUME 96 fL (80-99); MEAN PLATELET VOLUME 11.1 fL (9.0-12.2); MONOCYTES # (AUTO) 0.6 10^3/uL (0.0-1.0); MONOCYTES % (AUTO) 11 % (0-12); NEUTROPHILS # (AUTO) 3.5 10^3/uL (1.8-7.8); NEUTROPHILS % (AUTO) 72 % (42-75); PLATELET COUNT 178 10^3/uL (130-400); WHITE BLOOD COUNT 4.9 10^3/uL (4.3-11.0)
[2022-01-09] MEDS: KCL 10 MEQ TAB (MICRO K) PO SCH (05:59)
[2022-01-09 06:09] LABS: ALBUMIN 2.9 GM/DL (3.2-4.5); POTASSIUM 3.9 MMOL/L (3.6-5.0)
[2022-01-09 06:10] LABS: CALCIUM 8.8 MG/DL (8.5-10.1)
[2022-01-09 06:11] LABS: TOTAL PROTEIN 5.5 GM/DL (6.4-8.2)
[2022-01-09 06:13] LABS: BILIRUBIN,TOTAL 0.6 MG/DL (0.1-1.0)
[2022-01-09 06:15] LABS: CREATININE SERUM 0.93 MG/DL (0.60-1.30)
--- NOTE | 2022-01-09 06:27 | Individualized Plan of Care ---
Individualized Plan of Care Rehab Nursing IPOC Order Admission Date Jan 08, 2022 at 13:33 Current Orders Orders Admission Arrival Bed Request (01/08/22 13:28) Follow-Up Appointment (01/08/22 13:30) Admission Order(Inpt,Obs,Sdc) (01/08/22 13:41) Vital Signs: Per Unit Policy ( 08,16,00 (01/08/22 13:41) Han Barnes ,21 (01/08/22 13:41) Craft Manager-Inpt Rehab Con (01/08/22 13:41) Rehab Nursing Orders-Ipoc (01/08/22 13:41) Physical Therapy Rehab Orders (01/08/22 13:41) Occupational Therapy Rehab Ord (01/08/22 13:41) Speech Therapy Rehab Orders (01/08/22 13:41) Cbc With Automated Diff (01/09/22 06:00) Comprehensive Metabolic Panel (01/09/22 06:00) Precautions (Aru) (01/08/22 13:41) Weekly Weight WEEK (01/08/22 13:41) Rehab-Intensity Of Therapy (01/08/22 13:41) Initiate Admission Nursing Pro .admission (01/08/22 13:41) Alprazolam Tablet (Xanax Tablet) (01/08/22 13:45) Calcium Carbonate Chew Tablet (Antacid C (01/08/22 13:45) Diphenhydramine Tablet (Benadryl Tablet) (01/08/22 13:45) Docusate Sodium Capsule (Colace Capsule) (01/08/22 21:00) Docusate Sodium Capsule (Colace Capsule) (01/08/22 13:45) Bisacodyl Suppository (Dulcolax Supposit (01/08/22 13:45) Lactulose Oral Solution (Enulose Oral So (01/08/22 13:45) Na Phos/Na Biphos Enema (Fleet Enema Henrry (01/08/22 13:45) Guaifenesin/Codeine Syrup (Robitussin Ac (01/08/22 13:45) Loperamide Tablet (Imodium Tablet) (01/08/22 13:45) Melatonin Tablet (Melatonin Tablet) (01/08/22 13:45) Polyethylene Glycol Powder Pkt (Miralax (01/08/22 21:00) Ondansetron Oral Dissolve Tab (Zofran (01/08/22 13:45) Senna S Tablet (Senokot S Tablet) (01/08/22 21:00) Acetaminophen Tablet/Caplet (Tylenol T (01/08/22 13:45) Code/Resuscitation (01/08/22 13:42) Ambulate 08,12,20 (01/08/22 13:42) Sequential Compression Device ONCE (01/08/22 13:42) Initiate Admission Nursing Pro .admission (01/08/22 13:42) Isolation Central Supply Req (01/08/22 13:42) Nursing Communication (Order) (01/08/22 14:14) Patient Visit (01/08/22 ) Pt Eval Moderate Complexity (01/08/22 ) Functional Activities, Ea 15 (01/08/22 ) Ensure Plus Vanilla (01/08/22 15:47) General/Regular (01/08/22 Lunch) Albuterol Pre-Mix Nebs (Rt) (Proventil (01/08/22 19:00) Aspirin Enteric Coated Tablet (Ecotrin T (01/09/22 09:00) Carvedilol Tablet (Coreg Tablet) (01/08/22 21:00) Cholestyramine Lite Powder (Questran Lit (01/08/22 18:30) Famotidine Tablet (Pepcid Tablet) (01/08/22 21:00) Furosemide Tablet (Lasix Tablet) (01/08/22 18:30) Losartan Tablet (Cozaar Tablet) (01/09/22 09:00) Menthol/Zinc Oxide Ointment (Calmoseptin (01/08/22 18:30) Potassium Chloride (Tablet) (Klor Con Ta (01/09/22 07:00) Sodium Bicarbonate Tablet (Sodium Bicarb (01/08/22 21:00) (Nf) Calcium Carbonate (Oyster Shell Julio Cesar (01/08/22 21:00) (Nf) Glucosamine/D3/Boswellia Rika (Ost (01/09/22 09:00) (Nf) L. Acidophilus/Bulgaricus (Floranex (01/08/22 21:00) (Nf) Nifedipine (Nifedipine Er) (01/09/22 09:00) (Nf) [place]-3/Dha/Epa/Fish Oil (Fish Oil (01/09/22 09:00) Svn Small Volume Nebulizer (01/08/22 18:16) [place] 3 Capsule (Fish Oil Capsule) (01/09/22 09:00) Nifedipine Xl Tablet (Procardia Xl Tab (01/09/22 09:00) Nifedipine Xl Tablet (Procardia Xl Tab (01/09/22 09:00) Lactobacillus Acidophilus Cap (Acidophil (01/08/22 21:00) Calcium Carbonate Tablet (Calcarb 600 Ta (01/09/22 08:00) Patient Visit (01/08/22 ) Functional Activities, Ea 15 (01/08/22 ) Gait Training, Ea 15 Min (01/08/22 ) Exercise Therap, Ea 15 Min (01/08/22 ) Patient Visit (01/09/22 ) Exercise Therap, Ea 15 Min (01/09/22 ) Gait Training, Ea 15 Min (01/09/22 ) Patient Visit (01/09/22 ) Speech Sound Lang Comp (01/09/22 ) Treat. Speech/Lang/Voice (01/09/22 ) Patient Visit (01/09/22 ) Therapeutic, Group (01/09/22 ) Ensure Hi Protein Variety (01/09/22 14:00) Rehab Nursing Orders: Ongoing Assess. of Cognitive Status, Ongoing Assess. of Function Status, Bladder Management, Bladder Scan, Bladder Training, Bowel Management, Bowel Training, Disease Management & Educaiton, DVT Prophylaxis, Fall Prevention, Fluid/Electrolyte/Nutrition Mgmt, Infection Prevention, Medicat ion Management & Education, Management of Risks & Complications, Management of Skin Intergrity, Nutrition Management, Pain Management, Patient/Family Support, Safety Management Intensity of Therapy to be met Patient to be seen: Min.3h per day/5 of 7d PT IPOC Problem List: Activity Tolerance, Functional Strength, Safety, Gait, Transfer Treatment Plan: Continue Plan of Care Bed Mobility, Concurrent Therapy, Education, Functional Activity Naomie, Functional Strength, Group Therapy, Gait, Safety, Therapeutic Exercise, Transfers Treatment Duration: Feb 07, 2022 Frequency: At least 5 of 7 days/Wk (IRF) Estimated Hrs Per Day: 1.5 hours per day OT IPOC Problems: Decreased Activ Tolerance, Decreased UE Strength, Impaired Bed Mobility, Impaired Funct Balance, Impaired I ADL's, Impaired Self-Care Skills OT Treatment, Training and Edu: Yes Plan of Care: ADL Retraining, Functional Mobility, Group Exercise/Act as Ind, UE Funct Exercise/Act Treatment Duration: Jan 30, 2022 Frequency: At least 5 of 7 days/Wk (IRF) Estimated Hrs Per Day: 1.[address] IPOC Speech Therapy Treatment Plan: Discontinue ST Treatment Duration: Jan 09, 2022 Frequency: Modified Program (IRF) Estimated Hrs Per Day: Other Craft Manager/Case Mgmt Craft Manager/Case Managemen: Discharge Planning Dietitian/Manager Ed Dietitian/Manager Ed to monitor nutritional status and make changes and/or recommendations as needed and work with speech pathology on dietary upgrades as the occur. Physician IPOC Medical Issues being managed closely and that require the 24 hour availability of a physician: Recent fall and found down will require close monitoring for fall risk and lymphedema will require close monitoring for cellulitis and volume overload Medical Issues: Bowel/Bladder Function, DVT Prophylaxis, Falls Precautions, Fluid/Electrolyte/Nutrition Balance, Infection Protection, Pain Management, Wound Care Brief Synthesis of Preadmission Screen, Post-Admission Evaluation, and Therapy Evaluations: PT OT will focus on regaining stamina while using AD in order to regain function to prevent falls and remain living independently Medical Prognosis: Good Anticipated Length of Stay: 7 days CHELA BROOKS DO Jan 09, 2022 06:27
--- NOTE | 2022-01-09 06:27 | PM&R Progress Note ---
Subjective HPI/CC On Admission Date Seen by Provider: Jan 09, 2022 Time Seen by Provider: 10:30 Subjective/Events-last exam 01/09/2022: Pt is doing pretty well Elevated bp noted Checked meds and labs Feels like she is tolerating therapy pretty well Lower extremity edema continues Review of Systems General: Fatigue, Malaise Cardiovascular: Edema Objective Exam Vital Signs Vital Signs Date Time Temp Pulse Resp B/P (MAP) Pulse Ox O2 Delivery O2 Flow Rate FiO2 01/09/22 20:03 Room Air 01/09/22 19:47 98 01/09/22 19:34 37.3 85 18 165/70 (101) Capillary Refill : General Appearance: No Apparent Distress, WD/WN, Chronically ill, Obese HEENT: PERRL/EOMI, Normal ENT Inspection, Pharynx Normal Neck: Full Range of Motion, Normal Inspection, Non Tender, Supple, Carotid Bruit Respiratory: Chest Non Tender, Lungs Clear, Normal Breath Sounds, No Accessory Muscle Use, No Respiratory Distress Cardiovascular: Regular Rate, Rhythm, No Edema, No Gallop, No JVD, No Murmur, Normal Peripheral Pulses Gastrointestinal: Normal Bowel Sounds, No Organomegaly, No Pulsatile Mass, Non Tender, Soft Back: Normal Inspection, No CVA Tenderness, No Vertebral Tenderness Extremity: Normal Capillary Refill, Normal Inspection, Normal Range of Motion, Non Tender, No Calf Tenderness, No Pedal Edema Neurologic/Psychiatric: Alert, Oriented x3, Normal Mood/Affect, regulatory affairs assistant II-XII Norm as Tested, Abnormal Gait, Motor Weakness (generalized weakness all extremities) Skin: Normal Color, Warm/Dry Lymphatic: No Adenopathy Results/Procedures Lab Laboratory Tests 01/09/22 05:24 Patient resulted labs reviewed. FIM Transfers Therapy Code Descriptions/Definitions Functional [place] Measure: 0=Not Assessed/NA 4=Minimal Assistance 1=Total Assistance 5=Supervision or Setup 2=Maximal Assistance 6=Modified [place] 3=Moderate Assistance 7=Complete IndependenceSCALE: Activities may be completed with or without assistive devices. 8-Wbknymqckv-aqwivru completes the activity by him/herself with no assistance from a helper. 5-Set-up or Clean-up Assistance-helper sets up or cleans up; patient completes activity. [place] assists only prior to or following the activity. 4-Supervision or Touching Assistance-helper provides verbal cues and/or touching/steadying and/or contact guard assistance as patient completes activity. Assistance may be provided throughout the activity or intermittently. 3-Partial/Moderate Assistance-helper does LESS THAN HALF the effort. [place] lifts, holds or supports trunk or limbs, but provides less than half the effort. 2-Substantial/Maximal Assistance-helper does MORE THAN HALF the effort. [place] lifts or holds trunk or limbs and provides more than half the effort. 7-Vnmrfyxna-iopngi does ALL the effort. Patient does none of the effort to complete the activity. Or, the assistance of 2 or more helpers is required for the patient to complete the activity. If activity was not attempted, code reason: 7-Patient Refused. 9-Not Applicable-not attempted and the patient did not perform the activity before the current illness, exacerbation or injury. 10-Not Attempted due to Environmental Limitations-(lack of equipment, weather restraints, etc.). 88-Not Attempted due to Medical Conditions or Safety Concerns. Roll Left to Right (QC): 9 Sit to Lying (QC): 9 Sit to Stand (QC): 4 Chair/Qym-tb-Nlgsl Xfer(QC): 4 Car Transfer (QC): 3 (to assist left LE) Gait Training Does the Patient Walk?: Yes Distance: 200, 100 Walk 10 feet (QC): 4 Walk 50 ft with 2 Turns(QC): 4 Walk 150 ft (QC): 4 Walking 10ft/uneven surface-QC: 4 Gait Assistive Device: FWW Wheelchair Training Wheel 50 ft with 2 turns (QC): 9 Wheel 150 ft (QC): 9 Type of Wheelchair: N/A Stair Training #of Steps: 4 1 Step (curb) (QC): 3 4 Steps (QC): 3 12 Steps (QC): 88 Balance Picking up an Object (QC): 4 ADL-Treatment Eating (QC): 5 (Per pt report and clinical judgement) Oral Hygiene (QC): 4 (Per clincial judgment, SBA) Shower/Bathe Self (QC): 5 (set up) Upper Body Dressing (QC): 5 (Set up, pt able to doff jacket and shirt in standing.) Lower Body Dressing (QC): 3 (ModA) On/Off Footwear (QC): 2 (MaxA) Toileting Hygiene (QC): 4 (CGA. Pt able to manage hygiene and clothing management) Assessment/Plan Assessment and Plan Assess & Plan/Chief Complaint Assessment: Debility following fall at home with rhabdomyolysis CKD HTN CAD Anemia Metabolic acidosis Lymphedema chronic Plan: Home meds Monitor kidneys PT OT Fall risk 01/09/2022: Supportive care Monitor closely (1) Rhabdomyolysis (2) CKD (chronic kidney disease) (3) CAD (coronary artery disease) (4) Lymphedema (5) Anemia (6) Fall (7) Metabolic acidosis (8) Myopathy CHELA BROOKS DO Jan 09, 2022 06:27
[2022-01-09] MEDS: RT-ALBUTEROL SULF 2.5 MG/3 ML PRE-MIX VIAL INH SCH ×4 (07:38→19:47)
[2022-01-09 07:40] VITALS: BP 180/74
[2022-01-09] MEDS ORDERED: NIFEDIPINE 90 MG PO SCH (09:00)
[2022-01-09 09:09] VITALS: BP 210/86
[2022-01-09] MEDS: DOCUSATE SODIUM 100 MG (COLACE) CAP PO SCH ×2 (09:10→19:10)
[2022-01-09] MEDS: SENNA W/DOCUSATE (SENOKOT S) TABLET PO SCH ×2 (09:10→19:10)
[2022-01-09] MEDS: polyethylene glycoL POWDER 17 GM (MIRALAX) PACK PO SCH ×2 (09:10→19:10)
[2022-01-09] MEDS: CALCIUM CARBONATE 600 MG (CALCARB) TAB PO SCH ×2 (09:12→17:57)
[2022-01-09] MEDS: LACTOBACILLUS ACIDOPHILUS (PROBIOTIC) CAPSULE PO SCH ×2 (09:12→19:29)
[2022-01-09] MEDS: LOSARTAN 100 MG (COZAAR) TABLET PO SCH (09:13)
[2022-01-09] MEDS: ASPIRIN E.C. 81 MG (ECOTRIN) TAB PO SCH (09:14)
[2022-01-09] MEDS: OMEGA 3 (FISH OIL) 1000 MG CAP PO SCH (09:14)
[2022-01-09] MEDS: SODIUM BICARBONATE 650 MG TABLET PO SCH ×2 (09:16→19:29)
[2022-01-09] MEDS: NIFEdipine ER 30 MG (PROCARDIA XL) TAB PO SCH (09:18)
[2022-01-09] MEDS: NIFEdipine ER 60 MG (PROCARDIA XL) TAB PO SCH (09:18)
--- NOTE | 2022-01-09 09:50 | Occupational Ther Daily Note ---
OT Current Status-Daily Note Subjective Pt up in recliner, agreeable to OT Tx. Pt c/o L knee pain after therapy yesterday. Pt indicates she has been getting to/from bathroom herself due to it taking too long for staff to arrived. OT informed pt of policy, requiring pt to use call light, she verbalized understanding but indicates she was still going to get up if needed. OT informed PT and pt's nurse. Mental Status/Objective Patient Orientation: Person, Place, Situation ADL-Treatment Therapy Code Descriptions/Definitions Functional [place] Measure: 0=Not Assessed/NA 4=Minimal Assistance 1=Total Assistance 5=Supervision or Setup 2=Maximal Assistance 6=Modified [place] 3=Moderate Assistance 7=Complete IndependenceSCALE: Activities may be completed with or without assistive devices. 6-Tdvhjzegab-stlegkp completes the activity by him/herself with no assistance from a helper. 5-Set-up or Clean-up Assistance-helper sets up or cleans up; patient completes activity. [place] assists only prior to or following the activity. 4-Supervision or Touching Assistance-helper provides verbal cues and/or touching/steadying and/or contact guard assistance as patient completes activity. Assistance may be provided throughout the activity or intermittently. 3-Partial/Moderate Assistance-helper does LESS THAN HALF the effort. [place] lifts, holds or supports trunk or limbs, but provides less than half the effort. 2-Substantial/Maximal Assistance-helper does MORE THAN HALF the effort. [place] lifts or holds trunk or limbs and provides more than half the effort. 7-Lhziddnyx-ovkboy does ALL the effort. Patient does none of the effort to complete the activity. Or, the assistance of 2 or more helpers is required for the patient to complete the activity. If activity was not attempted, code reason: 7-Patient Refused. 9-Not Applicable-not attempted and the patient did not perform the activity before the current illness, exacerbation or injury. 10-Not Attempted due to Environmental Limitations-(lack of equipment, weather restraints, etc.). 88-Not Attempted due to Medical Conditions or Safety Concerns. Other Treatment Pt in recliner, agreeable to OT Tx. Pt used FWW to perform functional mobility to therapy gym, independently. OT tx focused on increasing BUE strength and activity tolerance, and increase fine motor strength/coordination. Pt completed x15 mins on arm bike, 15-20 Watt resistance. Pt then removed beads from moderate resistance (red) therputty, able to locate all but 1 bead without cues. Pt used FWW to return to her room, education provided on how to use lift recliner. OT provided pt with pillows in chair to comfort. Post tx, pt in recliner, call light in reach and all needs met. Education OT Patient Education: Correct positioning, Energy conservation, Modified ADL techniques, Progress toward Goal/Update tx plan, Purpose of tx/functional activities, Rehab process Teaching Recipient: Patient Teaching Methods: Discussion Response to Teaching: Verbalize Understanding OT Short Term Goals Short Term Goals Time Frame: Jan 16, 2022 Oral hygiene: 5 Shower/bathe self: 5 Lower body dressin Putting on/taking off footwear: 5 OT Snf Goals Teller Supervisor Goals Time Frame: Jan 30, 2022 Eating (QC): 6 Oral Hygiene (QC): 6 Toileting Hygiene (QC): 6 Shower/Bathe Self (QC): 6 Upper Body Dressing (QC): 6 Lower Body Dressing (QC): 6 On/Off Footwear (QC): 6 Additional Goals: 1-Demonstrate ADL Tasks, 2-Verbalize Understanding, 3- ImproveStrength/Naomie 1=Demonstrate adherence to instructed precautions during ADL tasks. 2=Patient will verbalize/demonstrate understanding of assistive devices/modifications for ADL. 3=Patient will improve strength/tolerance for activity to enable patient to perform ADL's. OT Education/Plan Problem List/Assessment Assessment: Decreased Activ Tolerance, Decreased UE Strength, Impaired I ADL's Discharge Recommendations Plan/Recommendations: Continue POC Treatment Plan/Plan of Care Patient would benefit from OT for education, treatment and training to promote independence in ADL's, mobility, safety and/or upper extremity function for ADL's. Plan of Care: ADL Retraining, Functional Mobility, Group Exercise/Act as Ind, UE Funct Exercise/Act Treatment Duration: Jan 30, 2022 Frequency: At least 5 of 7 days/Wk (IRF) Estimated Hrs Per Day: 1.5 hours per day Rehab Potential: Fair Time/GCodes Start Time: 09:30 Stop Time: 10:30 Total Time Billed (hr/min): 60 Billed Treatment Time 1, EX (20'), FA 3 (40') MEHUL CHOUDHARY OT Jan 09, 2022 09:50
[2022-01-09 10:15] VITALS: BP 134/78
--- NOTE | 2022-01-09 11:07 | Physical Therapy Daily Note ---
PT Daily Note-Current Subjective Patient sitting in chair upon PT arrival, agreeable to treatment. Patient reports 6/10 left knee pain and 4/10 right knee pain. Mental Status Patient Orientation: Person, Place, Time, Situation Transfers SCALE: Activities may be completed with or without assistive devices. 2-Nryunnlsus-xavgihy completes the activity by him/herself with no assistance from a helper. 5-Set-up or Clean-up Assistance-helper sets up or cleans up; patient completes activity. [place] assists only prior to or following the activity. 4-Supervision or Touching Assistance-helper provides verbal cues and/or touching/steadying and/or contact guard assistance as patient completes activity. Assistance may be provided throughout the activity or intermittently. 3-Partial/Moderate Assistance-helper does LESS THAN HALF the effort. [place] lifts, holds or supports trunk or limbs, but provides less than half the effort. 2-Substantial/Maximal Assistance-helper does MORE THAN HALF the effort. [place] lifts or holds trunk or limbs and provides more than half the effort. 2-Nftnggzme-vrntam does ALL the effort. Patient does none of the effort to complete the activity. Or, the assistance of 2 or more helpers is required for the patient to complete the activity. If activity was not attempted, code reason: 7-Patient Refused. 9-Not Applicable-not attempted and the patient did not perform the activity before the current illness, exacerbation or injury. 10-Not Attempted due to Environmental Limitations-(lack of equipment, weather restraints, etc.). 88-Not Attempted due to Medical Conditions or Safety Concerns. Sit to Stand (QC): 6 Chair/Zcp-yg-Kljqy Xfer(QC): 6 Toilet Transfer (QC): 6 Weight Bearing Right Lower Extremity: Right Full Weight Bearing Left Lower Extremity: Left Full Weight Bearing Gait Training Does the Patient Walk?: Yes Distance: 150 x 2 Walk 10 feet (QC): 6 Walk 50 ft with 2 Turns(QC): 4 Walk 150 ft (QC): 4 Gait Assistive Device: FWW Exercises Seated Therapy Exercises: Ankle pumps, Long arc quads, Hip flexion, Hamstring Curls, Hip abd/add Seated Reps: 20 NuStep Minutes: 10 NuStep Workload: 1 Assessment Current Status: Fair Progress OT reports patient has been getting up to the bathroom by herself. Patient was educated to use the call light and wait for assistance. She states "Since I had Covid, I've had some trouble with holding it and can't wait." She reports she will put on her call light, take herself to the bathroom and then wait for the nurse. She was educated to continue to wait for assistance prior to ambulating to the BR due to fall risk. Patient scores a 22/28 on the [place], and her [place] fall scale was last documented by nursing as a 55. Due to this score I do not feel the patient is safe to be designated as up ad flakita at this time. She performs all observed transfers with I, however with gait she demonstrates decline in balance the further she ambulates and fatigues quickly. Patient in chair post treatment with all needs met, nursing notified, call light in hand. PT Manager Data Center Goals Manager Data Center Goals PT Manager Data Center Goals Time Frame: Feb 07, 2022 Roll Left & Right (QC): 6 Sit to Lying (QC): 6 Lying-Sitting on Side/Bed(QC): 6 Sit to Stand (QC): 6 Chair/Oer-fo-Ewgrf Xfer(QC): 6 Toilet Transfer (QC): 6 Car Transfer (QC): 6 Does the Patient Walk: Yes Walk 10 feet (QC): 6 Walk 50ft with 2 Turns (QC): 6 Walk 150 ft (QC): 6 Walking 10ft on Uneven Surface: 6 1 Step (curb) (QC): 6 4 Steps (QC): 4 12 Steps (QC): 4 Picking up an Object (QC): 6 Wheel 50 feet with 2 turns (QC: 9 Type: N/A Wheel 150 feet: 9 Type: N/A PT Plan Problem List Problem List: Activity Tolerance, Functional Strength, Safety, Balance, Gait, Transfer, Bed Mobility, ROM Treatment/Plan Treatment Plan: Continue Plan of Care Treatment Plan: Bed Mobility, Concurrent Therapy, Education, Functional Activity Naomie, Functional Strength, Group Therapy, Gait, Safety, Therapeutic Exercise, Transfers Treatment Duration: Feb 07, 2022 Frequency: At least 5 of 7 days/Wk (IRF) Estimated Hrs Per Day: 1.5 hours per day Patient and/or Family Agrees t: Yes Safety Risks/Education Patient Education: Gait Training, Transfer Techniques Teaching Recipient: Patient Teaching Methods: Demonstration, Discussion Response to Teaching: Verbalize Understanding, Return Demonstration Time/GCodes Time In: 8860 Time Out: 1100 Total Billed Treatment Time: 30 Total Billed Treatment Visit, Paul, Ex MELYSSA LOPEZ PT Jan 09, 2022 11:07
--- NOTE | 2022-01-09 11:28 | ST Cognitive Linguistic Eval ---
Speech Evaluation-General Medical Diagnosis Rhabdomyolysis Onset Date: Dec 31, 2021 Therapy Diagnosis Therapy Diagnosis: Intact Neurocognitive Skills Referral Referring Physician: Dr. Musa Reason for Referral: Evaluation/Treatment Medical History Pertinent Medical History: CAD, HTN, Renal Insufficiency Current History The patient is a 76 year-old female with a past medical history of CAD, high cholesterol, and HTN, who presented to acute rehabilitation following a fall at home. Reviewed History: Yes Social History Current Living Status: Alone Speech PLF-Current Status Prior Level of Function The patient denied recent or current concerns with her speech, language, or cognition. Subjective The patient was seated upright in her recliner, awake and alert upon entrance to her room by the clinician. The patient greeted the clinician appropriately and was agreeable to participation in the cognitive linguistic assessment. Language Eval: Auditory Comprehends Simple Yes/No Ques: Functional Indent/Objects Multiple Gao: Functional Ident/Pics in Multiple Gao: Functional Follows 1-Step Commands: Functional Follows General Conversations: Functional Language Eval: Verbal Language Completes Spontaneous Greeting: Functional Produces Auto, Serial Info: Functional Imitates Simple Words/Phrases: Functional Word Finding: Functional Requests Basic Needs: Functional States Basic Personal Info: Functional Language Evaluation: Reading Follows Simple Written Direct: Functional Language Evaluation: Writing Writes to Simple Dictation: Functional Cognitive Patient Orientation The patient was independently oriented to self, location, month, day of the week, date and year. Objective Cognitive Domain Attention: WNL Memory: Mild Problem Solving: Functional Executive Functions: WNL Visuospatial Skills: WNL Composite Severity Rating: WNL Clock Drawing Severity Rating: WNL Objective Formal/Standardized Tests [facility] Mental Status Evaluation ([facility]) Results The patient demonstrated a result of +27/30 on the UMS correlating to a score within normal limits. Oral Motor/Speech Production The patient does not display dysarthria or apraxia of speech at this time. The patient is 100% intelligible in known and unknown contexts. Impression The patient demonstrated cognitive linguistic skills within normal limits and at self-reported baseline. Speech Patient Assess Expression of Ideas/Wants: Expression (4) Understanding Verbal Content: Understands (4) Brief Interview-Mental Status: Yes Repetition of Three Words: Three (3) Temporal Orientation: Year: Correct (3) Temporal Orientation: Month: Accurate within 5 days(2) Temporal Orientation: Day: Correct (1) Recall : Wear to say "Sock": Yes, no cue required (2) Recall : Color: Yes, no cue required (2) Recall : Bed: Yes,after cueing (1) Memory/Recall Ability: Current season, Location of own room, Staff names and faces, That he or she is in a hsp/hsp unit Speech-Plan Treatment Plan Speech Therapy Treatment Plan: Discontinue ST Treatment Duration: Jan 09, 2022 Frequency: 1 time per week Estimated Hrs Per Day: .5 hour per day Rehab Potential: Fair Safety Risks/Education Teaching Recipient: Patient Teaching Methods: Discussion Response to Teaching: Verbalize Understanding Education Topics Provided: Results, Recommendations, Plan of Care Time Speech Therapy Time In: 11:00 Speech Therapy Time Out: 11:30 Total Billed Time: 30 Billed Treatment Time 1, WILL MCLEAN [facility]IZ[facility] ST Jan 09, 2022 11:28
--- NOTE | 2022-01-09 14:40 | Therapy Group Daily Note ---
Therapy Daily Group Note Patient Education Topic Other List Below ( ARU practices and expectations) Exercises LE Seated Exercise, UE Exercise Session Ratio (pt:therapist): 3:1 Goal of Session: Education on ARU Expectations, Other (list) (pain management strategies) Goal Met for this Session: Yes Pt Benefit of Group: F/U Use of Strategies @Home, Socialization Other/Notes Pt. participated in group PT OT session this date, walking to and from using FWW SBA. Pts all introduced themselves, sharing name, home town and experiences they have had with a fall and the results. Pts all participated in U&L extremity seated exercise and stretching and relaxation breathing techniques. Education was done regarding chronic and acute pain , the bodies response, and some of the ways ARU staff will help pts manage pain. pt. in room after session with capellan at hand and needs met Start Time: 13:00 Stop Time: 14:20 Total Billed Treatment Time: 80 Total Billed Treatment 1,GRP ROLAND DARNELL DIRECTOR OF MATH Jan 09, 2022 14:40
[2022-01-09] MEDS: ACETAMINOPHEN 325 MG TABLET PO PRN (19:29)
[2022-01-09] MEDS: FAMOTIDINE 20 MG (PEPCID) TABLET PO SCH (19:29)
[2022-01-09 19:34] VITALS: BP 165/70
[2022-01-10] MEDS: KCL 10 MEQ TAB (MICRO K) PO SCH (06:11)
--- NOTE | 2022-01-10 07:23 | PM&R Progress Note ---
Subjective HPI/CC On Admission Date Seen by Provider: Jan 10, 2022 Time Seen by Provider: 10:00 Subjective/Events-last exam 01/10/2022: Needs APAP OA on schedule Frequent urination and jumps up on her own No pain reported 01/09/2022: Pt is doing pretty well Elevated bp noted Checked meds and labs Feels like she is tolerating therapy pretty well Lower extremity edema continues Review of Systems General: Fatigue, Malaise Objective Exam Vital Signs Vital Signs Date Time Temp Pulse Resp B/P (MAP) Pulse Ox O2 Delivery O2 Flow Rate FiO2 01/10/22 11:46 Room Air 0.00 01/10/22 07:30 37.5 90 20 148/74 (98) 93 Capillary Refill : General Appearance: No Apparent Distress, WD/WN, Chronically ill, Obese HEENT: PERRL/EOMI, Normal ENT Inspection, Pharynx Normal Neck: Full Range of Motion, Normal Inspection, Non Tender, Supple, Carotid Bruit Respiratory: Chest Non Tender, Lungs Clear, Normal Breath Sounds, No Accessory Muscle Use, No Respiratory Distress Cardiovascular: Regular Rate, Rhythm, No Edema, No Gallop, No JVD, No Murmur, Normal Peripheral Pulses Gastrointestinal: Normal Bowel Sounds, No Organomegaly, No Pulsatile Mass, Non Tender, Soft Back: Normal Inspection, No CVA Tenderness, No Vertebral Tenderness Extremity: Normal Capillary Refill, Normal Inspection, Normal Range of Motion, Non Tender, No Calf Tenderness, No Pedal Edema Neurologic/Psychiatric: Alert, Oriented x3, Normal Mood/Affect, buncher hand II-XII Norm as Tested, Abnormal Gait, Motor Weakness (generalized weakness all extremities) Skin: Normal Color, Warm/Dry Lymphatic: No Adenopathy Results/Procedures Lab Patient resulted labs reviewed. FIM Transfers Therapy Code Descriptions/Definitions Functional [place] Measure: 0=Not Assessed/NA 4=Minimal Assistance 1=Total Assistance 5=Supervision or Setup 2=Maximal Assistance 6=Modified [place] 3=Moderate Assistance 7=Complete IndependenceSCALE: Activities may be completed with or without assistive devices. 6-Cbuzovdxif-mlzqwwt completes the activity by him/herself with no assistance from a helper. 5-Set-up or Clean-up Assistance-helper sets up or cleans up; patient completes activity. [place] assists only prior to or following the activity. 4-Supervision or Touching Assistance-helper provides verbal cues and/or touching/steadying and/or contact guard assistance as patient completes activity. Assistance may be provided throughout the activity or intermittently. 3-Partial/Moderate Assistance-helper does LESS THAN HALF the effort. [place] lifts, holds or supports trunk or limbs, but provides less than half the effort. 2-Substantial/Maximal Assistance-helper does MORE THAN HALF the effort. [place] lifts or holds trunk or limbs and provides more than half the effort. 8-Gjvdjalmb-txnldn does ALL the effort. Patient does none of the effort to complete the activity. Or, the assistance of 2 or more helpers is required for the patient to complete the activity. If activity was not attempted, code reason: 7-Patient Refused. 9-Not Applicable-not attempted and the patient did not perform the activity before the current illness, exacerbation or injury. 10-Not Attempted due to Environmental Limitations-(lack of equipment, weather restraints, etc.). 88-Not Attempted due to Medical Conditions or Safety Concerns. Roll Left to Right (QC): 9 Sit to Lying (QC): 9 Sit to Stand (QC): 6 Chair/Gpi-wu-Hyvmy Xfer(QC): 6 Car Transfer (QC): 3 (to assist left LE) Gait Training Does the Patient Walk?: Yes Distance: 150 x 2 Walk 10 feet (QC): 6 Walk 50 ft with 2 Turns(QC): 4 Walk 150 ft (QC): 4 Walking 10ft/uneven surface-QC: 4 Gait Assistive Device: FWW Wheelchair Training Wheel 50 ft with 2 turns (QC): 9 Wheel 150 ft (QC): 9 Type of Wheelchair: N/A Stair Training #of Steps: 4 1 Step (curb) (QC): 3 4 Steps (QC): 3 12 Steps (QC): 88 Balance Picking up an Object (QC): 4 ADL-Treatment Eating (QC): 5 (Per pt report and clinical judgement) Oral Hygiene (QC): 4 (Per clincial judgment, SBA) Shower/Bathe Self (QC): 5 (set up) Upper Body Dressing (QC): 5 (Set up, pt able to doff jacket and shirt in standing.) Lower Body Dressing (QC): 3 (ModA) On/Off Footwear (QC): 2 (MaxA) Toileting Hygiene (QC): 4 (CGA. Pt able to manage hygiene and clothing management) Assessment/Plan Assessment and Plan Assess & Plan/Chief Complaint Assessment: Debility following fall at home with rhabdomyolysis CKD HTN CAD Anemia Metabolic acidosis Lymphedema chronic Plan: Home meds Monitor kidneys PT OT Fall risk 01/09/2022: Supportive care Monitor closely 01/10/2022: Monitor closely (1) Rhabdomyolysis (2) CKD (chronic kidney disease) (3) CAD (coronary artery disease) (4) Lymphedema (5) Anemia (6) Fall (7) Metabolic acidosis (8) Myopathy CHELA BROOKS DO Jan 10, 2022 07:23
[2022-01-10 07:30] VITALS: BP 148/74
[2022-01-10] MEDS: DOCUSATE SODIUM 100 MG (COLACE) CAP PO SCH ×2 (08:34→20:08)
[2022-01-10] MEDS: SENNA W/DOCUSATE (SENOKOT S) TABLET PO SCH ×2 (08:34→20:08)
[2022-01-10] MEDS: polyethylene glycoL POWDER 17 GM (MIRALAX) PACK PO SCH ×2 (08:34→20:08)
[2022-01-10] MEDS: RT-ALBUTEROL SULF 2.5 MG/3 ML PRE-MIX VIAL INH SCH ×4 (09:16→19:18)
[2022-01-10] MEDS: OMEGA 3 (FISH OIL) 1000 MG CAP PO SCH (09:47)
[2022-01-10] MEDS: NIFEdipine ER 60 MG (PROCARDIA XL) TAB PO SCH (09:47)
[2022-01-10] MEDS: CALCIUM CARBONATE 600 MG (CALCARB) TAB PO SCH ×2 (09:47→18:22)
[2022-01-10] MEDS: NIFEdipine ER 30 MG (PROCARDIA XL) TAB PO SCH (09:47)
[2022-01-10] MEDS: ASPIRIN E.C. 81 MG (ECOTRIN) TAB PO SCH (09:48)
[2022-01-10] MEDS: SODIUM BICARBONATE 650 MG TABLET PO SCH ×2 (09:48→20:10)
[2022-01-10] MEDS: LACTOBACILLUS ACIDOPHILUS (PROBIOTIC) CAPSULE PO SCH ×2 (09:48→20:10)
[2022-01-10] MEDS: LOSARTAN 100 MG (COZAAR) TABLET PO SCH (09:48)
[2022-01-10] MEDS: ACETAMINOPHEN ER 650 MG (TYLENOL ARTHRITIS) PO SCH ×2 (11:55→20:10)
--- NOTE | 2022-01-10 12:21 | Physical Therapy Daily Note ---
PT Daily Note-Current Subjective Pt. agrees to Rx and states she prefers to take a good walk. family accompanies her. No c/o except she cannot sleep in this bed, "makes my hips hurt" Pain Location: No Pain Reported Mental Status Patient Orientation: Normal For Age Transfers SCALE: Activities may be completed with or without assistive devices. 1-Imttxnkefy-ilqzfci completes the activity by him/herself with no assistance from a helper. 5-Set-up or Clean-up Assistance-helper sets up or cleans up; patient completes activity. [place] assists only prior to or following the activity. 4-Supervision or Touching Assistance-helper provides verbal cues and/or touching/steadying and/or contact guard assistance as patient completes activity. Assistance may be provided throughout the activity or intermittently. 3-Partial/Moderate Assistance-helper does LESS THAN HALF the effort. [place] lifts, holds or supports trunk or limbs, but provides less than half the effort. 2-Substantial/Maximal Assistance-helper does MORE THAN HALF the effort. [place] lifts or holds trunk or limbs and provides more than half the effort. 3-Vxopjhxbo-czcetw does ALL the effort. Patient does none of the effort to complete the activity. Or, the assistance of 2 or more helpers is required for the patient to complete the activity. If activity was not attempted, code reason: 7-Patient Refused. 9-Not Applicable-not attempted and the patient did not perform the activity before the current illness, exacerbation or injury. 10-Not Attempted due to Environmental Limitations-(lack of equipment, weather restraints, etc.). 88-Not Attempted due to Medical Conditions or Safety Concerns. sit to stand x 5 CGA to SBA Weight Bearing Right Lower Extremity: Right Full Weight Bearing Left Lower Extremity: Left Full Weight Bearing Gait Training Does the Patient Walk?: Yes Gait Assistive Device: FWW [id number] FWW no LOB, good safe use of device Exercises Seated Therapy Exercises: Ankle pumps, Sit to stand, Long arc quads, Hip flexion, Hip abd/add Seated Reps: 15 Treatments attempted to assist pt to recline recliner and elevate LEs for comfort and to reduce edema LEs but pt. declined repeatedly Assessment Current Status: Good Progress PT Money Laundering Investigator Goals Money Laundering Investigator Goals PT Money Laundering Investigator Goals Time Frame: Feb 07, 2022 Roll Left & Right (QC): 6 Sit to Lying (QC): 6 Lying-Sitting on Side/Bed(QC): 6 Sit to Stand (QC): 6 Chair/Wrj-xc-Nsjsl Xfer(QC): 6 Toilet Transfer (QC): 6 Car Transfer (QC): 6 Does the Patient Walk: Yes Walk 10 feet (QC): 6 Walk 50ft with 2 Turns (QC): 6 Walk 150 ft (QC): 6 Walking 10ft on Uneven Surface: 6 1 Step (curb) (QC): 6 4 Steps (QC): 4 12 Steps (QC): 4 Picking up an Object (QC): 6 Wheel 50 feet with 2 turns (QC: 9 Type: N/A Wheel 150 feet: 9 Type: N/A PT Plan Treatment/Plan Treatment Plan: Continue Plan of Care Treatment Plan: Bed Mobility, Concurrent Therapy, Education, Functional Acti vity [place], Functional Strength, Group Therapy, Gait, Safety, Therapeutic Exercise, Transfers Treatment Duration: Feb 07, 2022 Frequency: At least 5 of 7 days/Wk (IRF) Estimated Hrs Per Day: 1.5 hours per day Patient and/or Family Agrees t: Yes Safety Risks/Education Patient Education: Gait Training, Transfer Techniques, Correct Positioning, Disease Process, Safety Issues Teaching Recipient: Patient Teaching Methods: Demonstration, Discussion Response to Teaching: Verbalize Understanding, Return Demonstration, Reinforcement Needed Time/GCodes Time In: 1140 Time Out: 1155 Total Billed Treatment Time: 15 Total Billed Treatment 1,GT15m ROLAND DARNELL PTA Jan 10, 2022 12:21
[2022-01-10 19:42] VITALS: BP 176/60
[2022-01-10] MEDS: FAMOTIDINE 20 MG (PEPCID) TABLET PO SCH (20:10)
[2022-01-11] MEDS: KCL 10 MEQ TAB (MICRO K) PO SCH (06:20)
[2022-01-11] MEDS: RT-ALBUTEROL SULF 2.5 MG/3 ML PRE-MIX VIAL INH SCH ×4 (07:30→20:56)
[2022-01-11 07:49] VITALS: BP 146/58
[2022-01-11] MEDS: SENNA W/DOCUSATE (SENOKOT S) TABLET PO SCH ×2 (07:51→19:27)
[2022-01-11] MEDS: ACETAMINOPHEN ER 650 MG (TYLENOL ARTHRITIS) PO SCH ×2 (07:51→20:04)
[2022-01-11] MEDS: NIFEdipine ER 30 MG (PROCARDIA XL) TAB PO SCH (07:52)
[2022-01-11] MEDS: OMEGA 3 (FISH OIL) 1000 MG CAP PO SCH (07:52)
[2022-01-11] MEDS: CALCIUM CARBONATE 600 MG (CALCARB) TAB PO SCH ×2 (07:52→18:49)
[2022-01-11] MEDS: DOCUSATE SODIUM 100 MG (COLACE) CAP PO SCH ×2 (07:52→19:26)
[2022-01-11] MEDS: LOSARTAN 100 MG (COZAAR) TABLET PO SCH (07:52)
[2022-01-11] MEDS: SODIUM BICARBONATE 650 MG TABLET PO SCH ×2 (07:52→20:04)
[2022-01-11] MEDS: ASPIRIN E.C. 81 MG (ECOTRIN) TAB PO SCH (07:52)
[2022-01-11] MEDS: NIFEdipine ER 60 MG (PROCARDIA XL) TAB PO SCH (07:52)
[2022-01-11] MEDS: LACTOBACILLUS ACIDOPHILUS (PROBIOTIC) CAPSULE PO SCH ×2 (07:52→20:04)
--- NOTE | 2022-01-11 07:59 | PM&R Progress Note ---
Subjective HPI/CC On Admission Date Seen by Provider: Jan 11, 2022 Time Seen by Provider: 12:00 Subjective/Events-last exam 01/11/2022: Improved status Wants to walk around the room without assistance No pain reported 01/10/2022: Needs APAP OA on schedule Frequent urination and jumps up on her own No pain reported 01/09/2022: Pt is doing pretty well Elevated bp noted Checked meds and labs Feels like she is tolerating therapy pretty well Lower extremity edema continues Review of Systems General: Fatigue, Malaise Objective Exam Vital Signs Vital Signs Date Time Temp Pulse Resp B/P (MAP) Pulse Ox O2 Delivery O2 Flow Rate FiO2 01/11/22 15:36 94 Room Air 01/11/22 07:49 37.5 80 18 146/58 (87) 01/10/22 19:18 0.00 Capillary Refill : General Appearance: No Apparent Distress, WD/WN, Chronically ill, Obese HEENT: PERRL/EOMI, Normal ENT Inspection, Pharynx Normal Neck: Full Range of Motion, Normal Inspection, Non Tender, Supple, Carotid Bruit Respiratory: Chest Non Tender, Lungs Clear, Normal Breath Sounds, No Accessory Muscle Use, No Respiratory Distress Cardiovascular: Regular Rate, Rhythm, No Edema, No Gallop, No JVD, No Murmur, Normal Peripheral Pulses Gastrointestinal: Normal Bowel Sounds, No Organomegaly, No Pulsatile Mass, Non Tender, Soft Back: Normal Inspection, No CVA Tenderness, No Vertebral Tenderness Extremity: Normal Capillary Refill, Normal Inspection, Normal Range of Motion, Non Tender, No Calf Tenderness, No Pedal Edema Neurologic/Psychiatric: Alert, Oriented x3, Normal Mood/Affect, chemical manager II-XII Norm as Tested, Abnormal Gait, Motor Weakness (generalized weakness all extremities) Skin: Normal Color, Warm/Dry Lymphatic: No Adenopathy Results/Procedures Lab Patient resulted labs reviewed. FIM Transfers Therapy Code Descriptions/Definitions Functional [place] Measure: 0=Not Assessed/NA 4=Minimal Assistance 1=Total Assistance 5=Supervision or Setup 2=Maximal Assistance 6=Modified [place] 3=Moderate Assistance 7=Complete IndependenceSCALE: Activities may be completed with or without assistive devices. 9-Cokdzkjiyh-vnvdwgi completes the activity by him/herself with no assistance from a helper. 5-Set-up or Clean-up Assistance-helper sets up or cleans up; patient completes activity. [place] assists only prior to or following the activity. 4-Supervision or Touching Assistance-helper provides verbal cues and/or touching/steadying and/or contact guard assistance as patient completes activity. Assistance may be provided throughout the activity or intermittently. 3-Partial/Moderate Assistance-helper does LESS THAN HALF the effort. [place] lifts, holds or supports trunk or limbs, but provides less than half the effort. 2-Substantial/Maximal Assistance-helper does MORE THAN HALF the effort. [place] lifts or holds trunk or limbs and provides more than half the effort. 3-Oszphnhck-ateumi does ALL the effort. Patient does none of the effort to complete the activity. Or, the assistance of 2 or more helpers is required for the patient to complete the activity. If activity was not attempted, code reason: 7-Patient Refused. 9-Not Applicable-not attempted and the patient did not perform the activity before the current illness, exacerbation or injury. 10-Not Attempted due to Environmental Limitations-(lack of equipment, weather restraints, etc.). 88-Not Attempted due to Medical Conditions or Safety Concerns. Roll Left to Right (QC): 9 Sit to Lying (QC): 9 Sit to Stand (QC): 6 Chair/Nar-nc-Jddhz Xfer(QC): 6 Car Transfer (QC): 3 (to assist left LE) Gait Training Does the Patient Walk?: Yes Distance: 150 x 2 Walk 10 feet (QC): 6 Walk 50 ft with 2 Turns(QC): 4 Walk 150 ft (QC): 4 Walking 10ft/uneven surface-QC: 4 Gait Assistive Device: FWW Wheelchair Training Wheel 50 ft with 2 turns (QC): 9 Wheel 150 ft (QC): 9 Type of Wheelchair: N/A Stair Training #of Steps: 4 1 Step (curb) (QC): 3 4 Steps (QC): 3 12 Steps (QC): 88 Balance Picking up an Object (QC): 4 ADL-Treatment Eating (QC): 5 (Per pt report and clinical judgement) Oral Hygiene (QC): 4 (Per clincial judgment, SBA) Shower/Bathe Self (QC): 5 (set up) Upper Body Dressing (QC): 5 (Set up, pt able to doff jacket and shirt in standing.) Lower Body Dressing (QC): 3 (ModA) On/Off Footwear (QC): 2 (MaxA) Toileting Hygiene (QC): 4 (CGA. Pt able to manage hygiene and clothing management) Assessment/Plan Assessment and Plan Assess & Plan/Chief Complaint Assessment: Debility following fall at home with rhabdomyolysis CKD HTN CAD Anemia Metabolic acidosis Lymphedema chronic Plan: Home meds Monitor kidneys PT OT Fall risk 01/09/2022: Supportive care Monitor closely 01/10/2022: Monitor closely 01/11/2022: Monitor closely Pain control (1) Rhabdomyolysis (2) CKD (chronic kidney disease) (3) CAD (coronary artery disease) (4) Lymphedema (5) Anemia (6) Fall (7) Metabolic acidosis (8) Myopathy CHELA BROOKS DO Jan 11, 2022 07:59
[2022-01-11] MEDS: polyethylene glycoL POWDER 17 GM (MIRALAX) PACK PO SCH ×2 (08:33→19:27)
[2022-01-11] MEDS: FAMOTIDINE 20 MG (PEPCID) TABLET PO SCH (20:04)
[2022-01-11 20:05] VITALS: BP 179/63
[2022-01-12] MEDS: KCL 10 MEQ TAB (MICRO K) PO SCH (06:04)
--- NOTE | 2022-01-12 06:04 | PM&R Progress Note ---
Subjective HPI/CC On Admission Date Seen by Provider: Jan 12, 2022 Time Seen by Provider: 09:00 Subjective/Events-last exam 01/12/2022: No major issues Pain is controlled on her scheduled APAP Refuses to keep legs elevated No other issues 01/11/2022: Improved status Wants to walk around the room without assistance No pain reported 01/10/2022: Needs APAP OA on schedule Frequent urination and jumps up on her own No pain reported 01/09/2022: Pt is doing pretty well Elevated bp noted Checked meds and labs Feels like she is tolerating therapy pretty well Lower extremity edema continues Review of Systems General: Fatigue, Malaise Objective Exam Vital Signs Vital Signs Date Time Temp Pulse Resp B/P (MAP) Pulse Ox O2 Delivery O2 Flow Rate FiO2 01/12/22 21:42 95 Nasal Cannula 2.00 01/12/22 20:23 37.1 70 20 172/60 (97) Capillary Refill : General Appearance: No Apparent Distress, WD/WN, Chronically ill, Obese HEENT: PERRL/EOMI, Normal ENT Inspection, Pharynx Normal Neck: Full Range of Motion, Normal Inspection, Non Tender, Supple, Carotid Bruit Respiratory: Chest Non Tender, Lungs Clear, Normal Breath Sounds, No Accessory Muscle Use, No Respiratory Distress Cardiovascular: Regular Rate, Rhythm, No Edema, No Gallop, No JVD, No Murmur, Normal Peripheral Pulses Gastrointestinal: Normal Bowel Sounds, No Organomegaly, No Pulsatile Mass, Non Tender, Soft Back: Normal Inspection, No CVA Tenderness, No Vertebral Tenderness Extremity: Normal Capillary Refill, Normal Inspection, Normal Range of Motion, Non Tender, No Calf Tenderness, No Pedal Edema Neurologic/Psychiatric: Alert, Oriented x3, Normal Mood/Affect, 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 FIM Transfers Therapy Code Descriptions/Definitions Functional [place] Measure: 0=Not Assessed/NA 4=Minimal Assistance 1=Total Assistance 5=Supervision or Setup 2=Maximal Assistance 6=Modified [place] 3=Moderate Assistance 7=Complete IndependenceSCALE: Activities may be completed with or without assistive devices. 7-Bowaoftrge-izchnoi completes the activity by him/herself with no assistance from a helper. 5-Set-up or Clean-up Assistance-helper sets up or cleans up; patient completes activity. [place] assists only prior to or following the activity. 4-Supervision or Touching Assistance-helper provides verbal cues and/or touching /steadying and/or contact guard assistance as patient completes activity. Assistance may be provided throughout the activity or intermittently. 3-Partial/Moderate Assistance-helper does LESS THAN HALF the effort. [place] lifts, holds or supports trunk or limbs, but provides less than half the effort. 2-Substantial/Maximal Assistance-helper does MORE THAN HALF the effort. [place] lifts or holds trunk or limbs and provides more than half the effort. 6-Tsdusliss-qvgran does ALL the effort. Patient does none of the effort to complete the activity. Or, the assistance of 2 or more helpers is required for the patient to complete the activity. If activity was not attempted, code reason: 7-Patient Refused. 9-Not Applicable-not attempted and the patient did not perform the activity before the current illness, exacerbation or injury. 10-Not Attempted due to Environmental Limitations-(lack of equipment, weather restraints, etc.). 88-Not Attempted due to Medical Conditions or Safety Concerns. Roll Left to Right (QC): 9 Sit to Lying (QC): 9 Sit to Stand (QC): 6 Chair/Luo-ks-Zzppd Xfer(QC): 6 Car Transfer (QC): 3 (to assist left LE) Gait Training Does the Patient Walk?: Yes Distance: 150 x 2 Walk 10 feet (QC): 6 Walk 50 ft with 2 Turns(QC): 4 Walk 150 ft (QC): 4 Walking 10ft/uneven surface-QC: 4 Gait Assistive Device: FWW Wheelchair Training Wheel 50 ft with 2 turns (QC): 9 Wheel 150 ft (QC): 9 Type of Wheelchair: N/A Stair Training #of Steps: 4 1 Step (curb) (QC): 3 4 Steps (QC): 3 12 Steps (QC): 88 Balance Picking up an Object (QC): 4 ADL-Treatment Eating (QC): 5 (Per pt report and clinical judgement) Oral Hygiene (QC): 4 (Per clincial judgment, SBA) Shower/Bathe Self (QC): 5 (set up) Upper Body Dressing (QC): 5 (Set up, pt able to doff jacket and shirt in standing.) Lower Body Dressing (QC): 3 (ModA) On/Off Footwear (QC): 2 (MaxA) Toileting Hygiene (QC): 4 (CGA. Pt able to manage hygiene and clothing management) Assessment/Plan Assessment and Plan Assess & Plan/Chief Complaint Assessment: Debility following fall at home with rhabdomyolysis CKD HTN CAD Anemia Metabolic acidosis Lymphedema chronic OA pain Plan: Home meds Monitor kidneys PT OT Fall risk 01/09/2022: Supportive care Monitor closely 01/10/2022: Monitor closely 01/11/2022: Monitor closely Pain control 01/12/2022: Fall risk prevention (1) Rhabdomyolysis (2) CKD (chronic kidney disease) (3) CAD (coronary artery disease) (4) Lymphedema (5) Anemia (6) Fall (7) Metabolic acidosis (8) Myopathy CHELA BROOKS DO Jan 12, 2022 06:04
[2022-01-12] MEDS: RT-ALBUTEROL SULF 2.5 MG/3 ML PRE-MIX VIAL INH SCH ×2 (07:12→21:41)
[2022-01-12 08:07] VITALS: BP 164/78
[2022-01-12] MEDS: NIFEdipine ER 30 MG (PROCARDIA XL) TAB PO SCH (08:21)
[2022-01-12] MEDS: LACTOBACILLUS ACIDOPHILUS (PROBIOTIC) CAPSULE PO SCH ×2 (08:22→20:43)
[2022-01-12] MEDS: OMEGA 3 (FISH OIL) 1000 MG CAP PO SCH (08:22)
[2022-01-12] MEDS: SODIUM BICARBONATE 650 MG TABLET PO SCH ×2 (08:22→20:43)
[2022-01-12] MEDS: LOSARTAN 100 MG (COZAAR) TABLET PO SCH (08:22)
[2022-01-12] MEDS: CALCIUM CARBONATE 600 MG (CALCARB) TAB PO SCH ×2 (08:22→18:42)
[2022-01-12] MEDS: ACETAMINOPHEN ER 650 MG (TYLENOL ARTHRITIS) PO SCH ×2 (08:22→20:44)
[2022-01-12] MEDS: ASPIRIN E.C. 81 MG (ECOTRIN) TAB PO SCH (08:22)
[2022-01-12] MEDS: NIFEdipine ER 60 MG (PROCARDIA XL) TAB PO SCH (08:22)
[2022-01-12] MEDS: polyethylene glycoL POWDER 17 GM (MIRALAX) PACK PO SCH ×2 (08:25→19:48)
--- NOTE | 2022-01-12 09:19 | Occupational Ther Daily Note ---
OT Current Status-Daily Note Subjective Pt up in recliner, states she doesn't feel great today, but feels better than earlier. O2 saturation 98-99% with activity on 3L. Mental Status/Objective Patient Orientation: Person, Place, Time, Situation Attachments: Oxygen (3L) ADL-Treatment Therapy Code Descriptions/Definitions Functional [place] Measure: 0=Not Assessed/NA 4=Minimal Assistance 1=Total Assistance 5=Supervision or Setup 2=Maximal Assistance 6=Modified [place] 3=Moderate Assistance 7=Complete IndependenceSCALE: Activities may be completed with or without assistive devices. 1-Ungajouzyp-nhvjulr completes the activity by him/herself with no assistance from a helper. 5-Set-up or Clean-up Assistance-helper sets up or cleans up; patient completes activity. [place] assists only prior to or following the activity. 4-Supervision or Touching Assistance-helper provides verbal cues and/or touching/steadying and/or contact guard assistance as patient completes activity. Assistance may be provided throughout the activity or intermittently. 3-Partial/Moderate Assistance-helper does LESS THAN HALF the effort. [place] lifts, holds or supports trunk or limbs, but provides less than half the effort. 2-Substantial/Maximal Assistance-helper does MORE THAN HALF the effort. [place] lifts or holds trunk or limbs and provides more than half the effort. 4-Ccgjfblva-zgzvkf does ALL the effort. Patient does none of the effort to complete the activity. Or, the assistance of 2 or more helpers is required for the patient to complete the activity. If activity was not attempted, code reason: 7-Patient Refused. 9-Not Applicable-not attempted and the patient did not perform the activity before the current illness, exacerbation or injury. 10-Not Attempted due to Environmental Limitations-(lack of equipment, weather restraints, etc.). 88-Not Attempted due to Medical Conditions or Safety Concerns. Eating (QC): 6 Toileting Hygiene (QC): 6 Toilet Transfer (QC): 6 Other Treatment Pt up in recliner, agreeable to OT Tx. Pt took medications provided by RN independently, then used FWW to perform functional mobility to therapy gym, no LOB. OT tx focused on increasing BUE Strength and activity tolerance. Pt completed x15 mins on arm bike, 15-20 Watt resistance. Pt returned to her room using FWW, OT managed portable O2 tank, pt transferred onto toilet, completed toileting independently, and stood at sink to wash hands independently. Pt states she feels better and would like to try to eat her breakfast, OT heated breakfast up for pt, then she was able to eat independently. Post tx, pt in recliner, call light in reach and all needs met. Education OT Patient Education: Correct positioning, Energy conservation, Modified ADL techniques, Progress toward Goal/Update tx plan, Purpose of tx/functional activities, Rehab process Teaching Recipient: Patient Teaching Methods: Discussion Response to Teaching: Verbalize Understanding OT Short Term Goals Short Term Goals Time Frame: Jan 16, 2022 Oral hygiene: 5 Shower/bathe self: 5 Lower body dressin Putting on/taking off footwear: 5 OT Fdc Goals Fdc Goals Time Frame: Jan 30, 2022 Eating (QC): 6 Oral Hygiene (QC): 6 Toileting Hygiene (QC): 6 Shower/Bathe Self (QC): 6 Upper Body Dressing (QC): 6 Lower Body Dressing (QC): 6 On/Off Footwear (QC): 6 Additional Goals: 1-Demonstrate ADL Tasks, 2-Verbalize Understanding, 3- ImproveStrength/Naomie 1=Demonstrate adherence to instructed precautions during ADL tasks. 2=Patient will verbalize/demonstrate understanding of assistive devices/modifications for ADL. 3=Patient will improve strength/tolerance for activity to enable patient to perform ADL's. OT Education/Plan Problem List/Assessment Assessment: Decreased Activ Tolerance, Decreased UE Strength, Impaired I ADL's Discharge Recommendations Plan/Recommendations: Continue POC Treatment Plan/Plan of Care Patient would benefit from OT for education, treatment and training to promote independence in ADL's, mobility, safety and/or upper extremity function for ADL's. Plan of Care: ADL Retraining, Functional Mobility, Group Exercise/Act as Ind, UE Funct Exercise/Act Treatment Duration: Jan 30, 2022 Frequency: At least 5 of 7 days/Wk (IRF) Estimated Hrs Per Day: 1.5 hours per day Rehab Potential: Fair Time/GCodes Start Time: 09:00 Stop Time: 10:00 Total Time Billed (hr/min): 60 Billed Treatment Time 1, EX (15'), ADL 3 (45') MEHUL CHOUDHARY OT Jan 12, 2022 09:19
--- NOTE | 2022-01-12 09:59 | Physical Therapy Daily Note ---
PT Daily Note-Current Subjective Pt sitting in recliner with Nurse present. Pt to receive morning meds. Pt reports nausea and HR a little high. Nurse states HR was okay. Pt reports not eating much due to nausea. Pain Location: Right, Left Location Body Site: Knee Pain Description: Ache, Tightness Comment: B LE swelling but pt reports this is chronic & takes PRN Lasix at home. Mental Status Patient Orientation: Person, Place, Time, Situation Attachments: Oxygen (3L per Nurse) Transfers SCALE: Activities may be completed with or without assistive devices. 6-Hrtnmsplbc-joqxzhg completes the activity by him/herself with no assistance from a helper. 5-Set-up or Clean-up Assistance-helper sets up or cleans up; patient completes activity. [place] assists only prior to or following the activity. 4-Supervision or Touching Assistance-helper provides verbal cues and/or touching/steadying and/or contact guard assistance as patient completes activity. Assistance may be provided throughout the activity or intermittently. 3-Partial/Moderate Assistance-helper does LESS THAN HALF the effort. [place] lifts, holds or supports trunk or limbs, but provides less than half the effort. 2-Substantial/Maximal Assistance-helper does MORE THAN HALF the effort. [place] lifts or holds trunk or limbs and provides more than half the effort. 0-Ovkhupwkt-agqpcm does ALL the effort. Patient does none of the effort to complete the activity. Or, the assistance of 2 or more helpers is required for the patient to complete the activity. If activity was not attempted, code reason: 7-Patient Refused. 9-Not Applicable-not attempted and the patient did not perform the activity before the current illness, exacerbation or injury. 10-Not Attempted due to Environmental Limitations-(lack of equipment, weather restraints, etc.). 88-Not Attempted due to Medical Conditions or Safety Concerns. Sit to Stand (QC): 5 Toilet Transfer (QC): 5 Weight Bearing Right Lower Extremity: Right Full Weight Bearing Left Lower Extremity: Left Full Weight Bearing Gait Training Does the Patient Walk?: Yes Distance: 150' x2 Walk 10 feet (QC): 5 Walk 50 ft with 2 Turns(QC): 5 Walk 150 ft (QC): 5 Gait Assistive Device: FWW Exercises Seated Therapy Exercises: Ankle pumps, Long arc quads, Hip flexion, Hip a bd/add, Glut set Seated Reps: 15 Treatments After taking morning meds, pt needs to use BR. Pt TF from recliner and amb. to BR. Pt is reminded that staff needs to be w/pt at this time when TF and toileting. After toileting, pt amb. in hallway. Pt returns to room to rest. Pt completes Seated Ex at end of tx. All needs met, call light in hand. Assessment Current Status: Fair Progress B LE feeling heavy and nausea limited tx. PT Chemical Operations Specialist Goals Chemical Operations Specialist Goals PT Alf Goals Time Frame: Feb 07, 2022 Roll Left & Right (QC): 6 Sit to Lying (QC): 6 Lying-Sitting on Side/Bed(QC): 6 Sit to Stand (QC): 6 Chair/Fwk-dg-Hlkik Xfer(QC): 6 Toilet Transfer (QC): 6 Car Transfer (QC): 6 Does the Patient Walk: Yes Walk 10 feet (QC): 6 Walk 50ft with 2 Turns (QC): 6 Walk 150 ft (QC): 6 Walking 10ft on Uneven Surface: 6 1 Step (curb) (QC): 6 4 Steps (QC): 4 12 Steps (QC): 4 Picking up an Object (QC): 6 Wheel 50 feet with 2 turns (QC: 9 Type: N/A Wheel 150 feet: 9 Type: N/A PT Plan Problem List Problem List: Activity Tolerance, Functional Strength Treatment/Plan Treatment Plan: Continue Plan of Care Treatment Plan: Bed Mobility, Concurrent Therapy, Education, Functional Activity Naomie, Functional Strength, Group Therapy, Gait, Safety, Therapeutic Exercise, Transfers Treatment Duration: Feb 07, 2022 Frequency: At least 5 of 7 days/Wk (IRF) Estimated Hrs Per Day: 1.5 hours per day Patient and/or Family Agrees t: Yes Safety Risks/Education Patient Education: Gait Training, Transfer Techniques, Correct Positioning, Safety Issues Teaching Recipient: Patient Teaching Methods: Discussion Response to Teaching: Verbalize Understanding Time/GCodes Time In: 800 Time Out: 900 Total Billed Treatment Time: 60 Total Billed Treatment 1, EX x2 (30m) & FA x2 (30m) DEYANIRA MEZA ELECTRIC GAS APPLIANCES DEMONSTRATOR Jan 12, 2022 09:59
[2022-01-12] MEDS: DOCUSATE SODIUM 100 MG (COLACE) CAP PO SCH ×2 (11:35→19:46)
[2022-01-12] MEDS: SENNA W/DOCUSATE (SENOKOT S) TABLET PO SCH ×2 (11:35→19:50)
--- NOTE | 2022-01-12 14:44 | Therapy Group Daily Note ---
Therapy Daily Group Note Patient Education Topic Other List Below (Modifications for Home Environment) Session Ratio (pt:therapist): 4:1 Goal of Session: Energy Conservation Tech., Home Safety Strategies, Safety with Transfers, Use of Adaptive Equipment Goal Met for this Session: Yes Pt Benefit of Group: Contributions to Others, F/U Use of Strategies @Home, Increased Functional Safety, Increased Functional Strength, Improved Cognition, Recognition of Peers, Socialization Other/Notes Pt ambulated using FWW to therapy gym for OT/PT group. Group consisted of introductions (name, place living, remembered historic event), socializations, educational topic of ergonomic/modifications for functional mobility and ADL tasks. Pt introduced self appropriately and actively listened to peers. Pt then was able to verbalize own strategies for modifications around the home while acknowledging understanding of educational topic. After session, pt sitting in recliner visiting company with call light/phone in reach. All needs met in room. Start Time: 13:00 Stop Time: 14:25 Total Billed Treatment Time: 85 Total Billed Treatment 1, GRP (85m) DEYANIRA MEZA PTA Jan 12, 2022 14:44
[2022-01-12 20:23] VITALS: BP 172/60
[2022-01-12] MEDS: FAMOTIDINE 20 MG (PEPCID) TABLET PO SCH (20:44)
[2022-01-13] MEDS: RT-ALBUTEROL SULF 2.5 MG/3 ML PRE-MIX VIAL INH SCH ×2 (06:15→21:04)
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
[2022-01-13] MEDS: KCL 10 MEQ TAB (MICRO K) PO SCH (06:29)
[2022-01-13 07:35] VITALS: BP 190/68
[2022-01-13] MEDS: NIFEdipine ER 30 MG (PROCARDIA XL) TAB PO SCH (08:04)
[2022-01-13] MEDS: LACTOBACILLUS ACIDOPHILUS (PROBIOTIC) CAPSULE PO SCH ×2 (08:04→20:19)
[2022-01-13] MEDS: NIFEdipine ER 60 MG (PROCARDIA XL) TAB PO SCH (08:04)
[2022-01-13] MEDS: LOSARTAN 100 MG (COZAAR) TABLET PO SCH (08:04)
[2022-01-13] MEDS: OMEGA 3 (FISH OIL) 1000 MG CAP PO SCH (08:04)
[2022-01-13] MEDS: ASPIRIN E.C. 81 MG (ECOTRIN) TAB PO SCH (08:04)
[2022-01-13] MEDS: CALCIUM CARBONATE 600 MG (CALCARB) TAB PO SCH ×2 (08:04→18:49)
[2022-01-13] MEDS: DOCUSATE SODIUM 100 MG (COLACE) CAP PO SCH ×2 (08:05→21:50)
[2022-01-13] MEDS: SENNA W/DOCUSATE (SENOKOT S) TABLET PO SCH ×2 (08:05→21:50)
[2022-01-13] MEDS: ACETAMINOPHEN ER 650 MG (TYLENOL ARTHRITIS) PO SCH ×2 (08:05→20:19)
[2022-01-13] MEDS: SODIUM BICARBONATE 650 MG TABLET PO SCH ×2 (08:05→20:19)
--- NOTE | 2022-01-13 09:11 | Physical Therapy Daily Note ---
PT Daily Note-Current Subjective Pt sitting in BR as MANAGER SEMICONDUCTOR arrives. Nurse is bringing toileting supplies. Pt agrees to PT. Pain Location: Right, Left Location Body Site: Knee Pain Description: Ache, Chronic Comment: Reports but doesn't rate Mental Status Patient Orientation: Person, Place, Situation Transfers SCALE: Activities may be completed with or without assistive devices. 2-Grwcejhtqu-vhohcjp completes the activity by him/herself with no assistance from a helper. 5-Set-up or Clean-up Assistance-helper sets up or cleans up; patient completes activity. [place] assists only prior to or following the activity. 4-Supervision or Touching Assistance-helper provides verbal cues and/or touching/steadying and/or contact guard assistance as patient completes activity. Assistance may be provided throughout the activity or intermittently. 3-Partial/Moderate Assistance-helper does LESS THAN HALF the effort. [place] lifts, holds or supports trunk or limbs, but provides less than half the effort. 2-Substantial/Maximal Assistance-helper does MORE THAN HALF the effort. [place] lifts or holds trunk or limbs and provides more than half the effort. 8-Uqfjbtzyu-wfllhn does ALL the effort. Patient does none of the effort to complete the activity. Or, the assistance of 2 or more helpers is required for the patient to complete the activity. If activity was not attempted, code reason: 7-Patient Refused. 9-Not Applicable-not attempted and the patient did not perform the activity before the current illness, exacerbation or injury. 10-Not Attempted due to Environmental Limitations-(lack of equipment, weather restraints, etc.). 88-Not Attempted due to Medical Conditions or Safety Concerns. Sit to Stand (QC): 5 Toilet Transfer (QC): 5 Weight Bearing Right Lower Extremity: Right Full Weight Bearing Left Lower Extremity: Left Full Weight Bearing Gait Training Does the Patient Walk?: Yes Distance: 175' x2, 75' Walk 10 feet (QC): 5 Walk 50 ft with 2 Turns(QC): 4 Walk 150 ft (QC): 4 Gait Persons Needed: 1 Gait Assistive Device: Cane Single Point Starts tx w/FWW but transitions to SPC since pt uses one at home. More practice is needed. Stair Training Stair Training: Handrails/: 2 handrails #of Steps: 4 1 Step (curb) (QC): 4 4 Steps (QC): 4 Stairs: Pattern: Step to 2 sets of 4 steps Treatments Started tx w/FWW walking back to EOB to rest while O2 tank was obtained. Pt amb. in hallway and completes set of 4 steps in Therapy Gym. Pt advises the railing is too high so pt amb. to Therapy Commons to complete stairs there. Pt takes RB after 4 steps then stands and amb. using SPC like home. Pt returns to room after Dr Musa checks on pt. Pt resting in recliner with all needs met, call light in hand. Assessment Current Status: Good Progress Pt takes RB as she feels SOA. Pt continues to talk throughout RB though. PT Mcfp Goals Videogame Designer Goals PT Mcfp Goals Time Frame: Feb 07, 2022 Roll Left & Right (QC): 6 Sit to Lying (QC): 6 Lying-Sitting on Side/Bed(QC): 6 Sit to Stand (QC): 6 Chair/Xqk-jk-Jegdl Xfer(QC): 6 Toilet Transfer (QC): 6 Car Transfer (QC): 6 Does the Patient Walk: Yes Walk 10 feet (QC): 6 Walk 50ft with 2 Turns (QC): 6 Walk 150 ft (QC): 6 Walking 10ft on Uneven Surface: 6 1 Step (curb) (QC): 6 4 Steps (QC): 4 12 Steps (QC): 4 Picking up an Object (QC): 6 Wheel 50 feet with 2 turns (QC: 9 Type: N/A Wheel 150 feet: 9 Type: N/A PT Plan Problem List Problem List: Activity Tolerance, Gait Treatment/Plan Treatment Plan: Continue Plan of Care Treatment Plan: Bed Mobility, Concurrent Therapy, Education, Functional Activity Naomie, Functional Strength, Group Therapy, Gait, Safety, Therapeutic Exercise, Transfers Treatment Duration: Feb 07, 2022 Frequency: At least 5 of 7 days/Wk (IRF) Estimated Hrs Per Day: 1.5 hours per day Patient and/or Family Agrees t: Yes Safety Risks/Education Patient Education: Gait Training, Steps, Correct Positioning, Safety Issues Teaching Recipient: Patient Teaching Methods: Discussion Response to Teaching: Verbalize Understanding Time/GCodes Time In: 800 Time Out: 900 Total Billed Treatment Time: 60 Total Billed Treatment 1, GT x2 (30m) & FA x2 (30m) DEYANIRA MEZA MANAGER SEMICONDUCTOR Jan 13, 2022 09:11
--- NOTE | 2022-01-13 09:42 | Occupational Ther Daily Note ---
OT Current Status-Daily Note Subjective Pt in recliner, agreeable to OT Tx. Pt easily distracted, showing photos on her phone and telling stories, required frequent redirection to therapy tx. Mental Status/Objective Patient Orientation: Person, Place, Situation Attachments: Oxygen (2L NC) ADL-Treatment Therapy Code Descriptions/Definitions Functional [place] Measure: 0=Not Assessed/NA 4=Minimal Assistance 1=Total Assistance 5=Supervision or Setup 2=Maximal Assistance 6=Modified [place] 3=Moderate Assistance 7=Complete IndependenceSCALE: Activities may be completed with or without assistive devices. 9-Wduzrfhiyp-akwpdnu completes the activity by him/herself with no assistance f rom a helper. 5-Set-up or Clean-up Assistance-helper sets up or cleans up; patient completes activity. [place] assists only prior to or following the activity. 4-Supervision or Touching Assistance-helper provides verbal cues and/or touching/steadying and/or contact guard assistance as patient completes activity. Assistance may be provided throughout the activity or intermittently. 3-Partial/Moderate Assistance-helper does LESS THAN HALF the effort. [place] lifts, holds or supports trunk or limbs, but provides less than half the effort. 2-Substantial/Maximal Assistance-helper does MORE THAN HALF the effort. [place] lifts or holds trunk or limbs and provides more than half the effort. 6-Pclqnvsfl-jtyvon does ALL the effort. Patient does none of the effort to complete the activity. Or, the assistance of 2 or more helpers is required for the patient to complete the activity. If activity was not attempted, code reason: 7-Patient Refused. 9-Not Applicable-not attempted and the patient did not perform the activity before the current illness, exacerbation or injury. 10-Not Attempted due to Environmental Limitations-(lack of equipment, weather restraints, etc.). 88-Not Attempted due to Medical Conditions or Safety Concerns. Eating (QC): 6 Oral Hygiene (QC): 6 Shower/Bathe Self (QC): 6 Upper Body Dressing (QC): 6 Lower Body Dressing (QC): 6 On/Off Footwear: 6 Toileting Hygiene (QC): 6 Toilet Transfer (QC): 6 Other Treatment Pt in recliner, used FWW to transfer into bathroom and onto toilet. Pt completed toileting, doffed clothes, then completed shower. Pt donned clothes on BSC over toilet. OT removed BSC from toilet, pt reports she doesn't have one at home and the BSC makes it more difficult for her to reach her feet due to having shorter legs. Pt used FWW to stand at sink to brush teeth and comb hair. Pt used FWW to perform functional mobility to therapy gym. In order to increase BUE fine motor strength and coordination, pt removed beads from moderate resistance therapy putty, able to locate all beads without cues. Pt returned to her room using FWW, transferred to recliner. Post tx, pt in recliner, call light in reach and all needs met. Education OT Patient Education: Correct positioning, Energy conservation, Modified ADL techniques, Progress toward Goal/Update tx plan, Purpose of tx/functional activities, Rehab process Teaching Recipient: Patient Teaching Methods: Discussion Response to Teaching: Verbalize Understanding OT Short Term Goals Short Term Goals Time Frame: Jan 16, 2022 Oral hygiene: 5 Shower/bathe self: 5 Lower body dressin Putting on/taking off footwear: 5 OT Snf Goals Loan Originator Goals Time Frame: Jan 30, 2022 Eating (QC): 6 Oral Hygiene (QC): 6 Toileting Hygiene (QC): 6 Shower/Bathe Self (QC): 6 Upper Body Dressing (QC): 6 Lower Body Dressing (QC): 6 On/Off Footwear (QC): 6 Additional Goals: 1-Demonstrate ADL Tasks, 2-Verbalize Understanding, 3-Im proveStrength/Naomie 1=Demonstrate adherence to instructed precautions during ADL tasks. 2=Patient will verbalize/demonstrate understanding of assistive devices/modifications for ADL. 3=Patient will improve strength/tolerance for activity to enable patient to perform ADL's. OT Education/Plan Problem List/Assessment Assessment: Decreased Activ Tolerance, Decreased UE Strength, Impaired I ADL's Discharge Recommendations Plan/Recommendations: Continue POC Treatment Plan/Plan of Care Patient would benefit from OT for education, treatment and training to promote independence in ADL's, mobility, safety and/or upper extremity function for ADL's. Plan of Care: ADL Retraining, Functional Mobility, Group Exercise/Act as Ind, UE Funct Exercise/Act Treatment Duration: Jan 30, 2022 Frequency: At least 5 of 7 days/Wk (IRF) Estimated Hrs Per Day: 1.5 hours per day Rehab Potential: Fair Time/GCodes Start Time: 09:00 Stop Time: 10:30 Total Time Billed (hr/min): 90 Billed Treatment Time 1, ADL 4 (60'), FA 2 (30') MEHUL CHOUDHARY OT Jan 13, 2022 09:42
[2022-01-13] MEDS: polyethylene glycoL POWDER 17 GM (MIRALAX) PACK PO SCH ×2 (11:13→19:39)
--- NOTE | 2022-01-13 14:23 | Physical Therapy Daily Note ---
PT Daily Note-Current Subjective Pt had moved to Independent Living room. Pt is sitting in recliner finishing lunch upon arrival. Pt agrees to PT. Mental Status Patient Orientation: Person, Place, Time, Situation Attachments: Oxygen (2L) Transfers SCALE: Activities may be completed with or without assistive devices. 1-Rzjlrwzsxq-tnxwtgp completes the activity by him/herself with no assistance from a helper. 5-Set-up or Clean-up Assistance-helper sets up or cleans up; patient completes activity. [place] assists only prior to or following the activity. 4-Supervision or Touching Assistance-helper provides verbal cues and/or touching/steadying and/or contact guard assistance as patient completes activity. Assistance may be provided throughout the activity or intermittently. 3-Partial/Moderate Assistance-helper does LESS THAN HALF the effort. [place] lifts, holds or supports trunk or limbs, but provides less than half the effort. 2-Substantial/Maximal Assistance-helper does MORE THAN HALF the effort. [place] lifts or holds trunk or limbs and provides more than half the effort. 3-Nfrxbadus-pdxwpo does ALL the effort. Patient does none of the effort to complete the activity. Or, the assistance of 2 or more helpers is required for the patient to complete the activity. If activity was not attempted, code reason: 7-Patient Refused. 9-Not Applicable-not attempted and the patient did not perform the activity before the current illness, exacerbation or injury. 10-Not Attempted due to Environmental Limitations-(lack of equipment, weather restraints, etc.). 88-Not Attempted due to Medical Conditions or Safety Concerns. Sit to Stand (QC): 5 Toilet Transfer (QC): 5 Weight Bearing Right Lower Extremity: Right Full Weight Bearing Left Lower Extremity: Left Full Weight Bearing Gait Training Does the Patient Walk?: Yes Distance: 75' x2 Walk 10 feet (QC): 4 Walk 50 ft with 2 Turns(QC): 4 Gait Persons Needed: 1 Gait Assistive Device: Cane Single Point Treatments Pt stands from recliner and amb. to BR. After toileting, pt is able to complete pericare. Pt stands and amb. in hallway with SPC. After short RB, pt returns to room. Pt resting in recliner w/all needs met, call light in hand. Assessment Current Status: Good Progress Pt feels more fatigued with SPC but wants to continue to try to use it because pt is used to using it at home. PT Corrections Corporal Goals Corrections Corporal Goals PT Corrections Corporal Goals Time Frame: Feb 07, 2022 Roll Left & Right (QC): 6 Sit to Lying (QC): 6 Lying-Sitting on Side/Bed(QC): 6 Sit to Stand (QC): 6 Chair/Bsm-gm-Iishv Xfer(QC): 6 Toilet Transfer (QC): 6 Car Transfer (QC): 6 Does the Patient Walk: Yes Walk 10 feet (QC): 6 Walk 50ft with 2 Turns (QC): 6 Walk 150 ft (QC): 6 Walking 10ft on Uneven Surface: 6 1 Step (curb) (QC): 6 4 Steps (QC): 4 12 Steps (QC): 4 Picking up an Object (QC): 6 Wheel 50 feet with 2 turns (QC: 9 Type: N/A Wheel 150 feet: 9 Type: N/A PT Plan Problem List Problem List: Activity Tolerance Treatment/Plan Treatment Plan: Continue Plan of Care Treatment Plan: Bed Mobility, Concurrent Therapy, Education, Functional Activity Naomie, Functional Strength, Group Therapy, Gait, Safety, Therapeutic Exercise, Transfers Treatment Duration: Feb 07, 2022 Frequency: At least 5 of 7 days/Wk (IRF) Estimated Hrs Per Day: 1.5 hours per day Patient and/or Family Agrees t: Yes Time/GCodes Time In: 1300 Time Out: 1330 Total Billed Treatment Time: 30 Total Billed Treatment 1, FA (15m) & GT (15m) DEYANIRA MEZA INTEGRATION DIRECTOR Jan 13, 2022 14:23
[2022-01-13] MEDS: FAMOTIDINE 20 MG (PEPCID) TABLET PO SCH (20:19)
[2022-01-13 20:46] VITALS: BP 124/50
[2022-01-14] MEDS: KCL 10 MEQ TAB (MICRO K) PO SCH (06:32)
[2022-01-14 07:19] VITALS: BP 164/76
[2022-01-14] MEDS: LACTOBACILLUS ACIDOPHILUS (PROBIOTIC) CAPSULE PO SCH ×2 (08:10→20:13)
[2022-01-14] MEDS: NIFEdipine ER 30 MG (PROCARDIA XL) TAB PO SCH (08:10)
[2022-01-14] MEDS: SODIUM BICARBONATE 650 MG TABLET PO SCH ×2 (08:10→20:13)
[2022-01-14] MEDS: NIFEdipine ER 60 MG (PROCARDIA XL) TAB PO SCH (08:11)
[2022-01-14] MEDS: ASPIRIN E.C. 81 MG (ECOTRIN) TAB PO SCH (08:12)
[2022-01-14] MEDS: CALCIUM CARBONATE 600 MG (CALCARB) TAB PO SCH ×2 (08:12→18:27)
[2022-01-14] MEDS: LOSARTAN 100 MG (COZAAR) TABLET PO SCH (08:12)
[2022-01-14] MEDS: OMEGA 3 (FISH OIL) 1000 MG CAP PO SCH (08:12)
[2022-01-14] MEDS: ACETAMINOPHEN ER 650 MG (TYLENOL ARTHRITIS) PO SCH ×2 (08:12→20:13)
[2022-01-14] MEDS: polyethylene glycoL POWDER 17 GM (MIRALAX) PACK PO SCH ×2 (08:13→19:46)
[2022-01-14] MEDS: DOCUSATE SODIUM 100 MG (COLACE) CAP PO SCH ×2 (09:00→19:46)
[2022-01-14] MEDS: SENNA W/DOCUSATE (SENOKOT S) TABLET PO SCH ×2 (09:00→19:46)
--- NOTE | 2022-01-14 09:00 | Physical Therapy Daily Note ---
PT Daily Note-Current Subjective Pt. agrees to Rx, explains that she is afraid she wont be able to go back to work at and that she really counted on the income there, has bills to pay etc, Pt. only has a bthrm up 15 steps at her home , none down, uses a BSC she has to carry up steps to empty etc. Pt. states she is afraid she will be DCd and not have any help at home Pain Location: No Pain Reported Mental Status Patient Orientation: Normal For Age Attachments: Oxygen (2L) pt. declines to use O2. this FIRMWARE ENGINEER monitored O2 sats and took O2 port along through all of Rx Transfers SCALE: Activities may be completed with or without assistive devices. 2-Xuwlnhyqby-wqnwgwq completes the activity by him/herself with no assistance from a helper. 5-Set-up or Clean-up Assistance-helper sets up or cleans up; patient completes activity. [place] assists only prior to or following the activity. 4-Supervision or Touching Assistance-helper provides verbal cues and/or touching/steadying and/or contact guard assistance as patient completes activity. Assistance may be provided throughout the activity or intermittently. 3-Partial/Moderate Assistance-helper does LESS THAN HALF the effort. [place] lifts, holds or supports trunk or limbs, but provides less than half the effort. 2-Substantial/Maximal Assistance-helper does MORE THAN HALF the effort. [place] lifts or holds trunk or limbs and provides more than half the effort. 5-Mksxkdosr-glncsq does ALL the effort. Patient does none of the effort to complete the activity. Or, the assistance of 2 or more helpers is required for the patient to complete the activity. If activity was not attempted, code reason: 7-Patient Refused. 9-Not Applicable-not attempted and the patient did not perform the activity before the current illness, exacerbation or injury. 10-Not Attempted due to Environmental Limitations-(lack of equipment, weather restraints, etc.). 88-Not Attempted due to Medical Conditions or Safety Concerns. Sit to Stand (QC): 6 Chair/Iat-wr-Mrjwe Xfer(QC): 6 Toilet Transfer (QC): 6 Pt. refuses to lay down on side or back, states she sleeps in the recliner and plans to do this at home too. Weight Bearing Right Lower Extremity: Right Full Weight Bearing Left Lower Extremity: Left Full Weight Bearing Gait Training Does the Patient Walk?: Yes Walk 10 feet (QC): 6 Walk 50 ft with 2 Turns(QC): 6 Walk 150 ft (QC): 6 Gait Persons Needed: 1 Gait Assistive Device: Cane Single Point no LOB, slow, appears slightly dyspneic but declines O2, sats 92% or> 160 ft x 2, 100ft x 2 SPC Wheelchair Training Does the Pt Use a Wheelchair?: No Exercises Seated Therapy Exercises: Ankle pumps, Sit to stand, Long arc quads, Hip abd/add Seated Reps: 15 NuStep Minutes: 12 NuStep Workload: 1 Assessment Current Status: Good Progress pt. progressing but this FIRMWARE ENGINEER doubts pt will be able to return to FT work at , her financial situation and home safety is an at risk picture, will discuss with PT State'S Attorney Goals State'S Attorney Goals PT State'S Attorney Goals Time Frame: Feb 07, 2022 Roll Left & Right (QC): 6 Sit to Lying (QC): 6 Lying-Sitting on Side/Bed(QC): 6 Sit to Stand (QC): 6 Chair/Hoa-dq-Ogkzm Xfer(QC): 6 Toilet Transfer (QC): 6 Car Transfer (QC): 6 Does the Patient Walk: Yes Walk 10 feet (QC): 6 Walk 50ft with 2 Turns (QC): 6 Walk 150 ft (QC): 6 Walking 10ft on Uneven Surface: 6 1 Step (curb) (QC): 6 4 Steps (QC): 4 12 Steps (QC): 4 Picking up an Object (QC): 6 Wheel 50 feet with 2 turns (QC: 9 Type: N/A Wheel 150 feet: 9 Type: N/A PT Plan Treatment/Plan Treatment Plan: Continue Plan of Care Treatment Plan: Bed Mobility, Concurrent Therapy, Education, Functional Activity Naomie, Functional Strength, Group Therapy, Gait, Safety, Therapeutic Exercise, Transfers Treatment Duration: Feb 07, 2022 Frequency: At least 5 of 7 days/Wk (IRF) Estimated Hrs Per Day: 1.5 hours per day Patient and/or Family Agrees t: Yes Safety Risks/Education Patient Education: Gait Training, Transfer Techniques, Steps, Correct Positioning, Disease Process, Safety Issues Teaching Recipient: Patient Teaching Methods: Demonstration, Discussion Response to Teaching: Verbalize Understanding, Return Demonstration, Reinforcement Needed Time/GCodes Time In: 730 Time Out: 900 Total Billed Treatment Time: 90 Total Billed Treatment 1,FA50m,GT25m,EX15m ROLAND DARNELL FIRMWARE ENGINEER Jan 14, 2022 09:00
[2022-01-14] MEDS: RT-ALBUTEROL SULF 2.5 MG/3 ML PRE-MIX VIAL INH SCH ×2 (10:55→20:41)
--- NOTE | 2022-01-14 11:10 | Occupational Ther Daily Note ---
OT Current Status-Daily Note Subjective Pt up in recliner, agreeable to OT tx. Mental Status/Objective Patient Orientation: Person, Place Attachments: Oxygen ADL-Treatment Therapy Code Descriptions/Definitions Functional [place] Measure: 0=Not Assessed/NA 4=Minimal Assistance 1=Total Assistance 5=Supervision or Setup 2=Maximal Assistance 6=Modified [place] 3=Moderate Assistance 7=Complete IndependenceSCALE: Activities may be completed with or without assistive devices. 9-Yvecnucdnj-mgvdxaw completes the activity by him/herself with no assistance from a helper. 5-Set-up or Clean-up Assistance-helper sets up or cleans up; patient completes activity. [place] assists only prior to or following the activity. 4-Supervision or Touching Assistance-helper provides verbal cues and/or touching/steadying and/or contact guard assistance as patient completes activity. Assistance may be provided throughout the activity or intermittently. 3-Partial/Moderate Assistance-helper does LESS THAN HALF the effort. [place] lifts, holds or supports trunk or limbs, but provides less than half the effort. 2-Substantial/Maximal Assistance-helper does MORE THAN HALF the effort. [place] lifts or holds trunk or limbs and provides more than half the effort. 1-Iahigiais-pqhnay does ALL the effort. Patient does none of the effort to complete the activity. Or, the assistance of 2 or more helpers is required for the patient to complete the activity. If activity was not attempted, code reason: 7-Patient Refused. 9-Not Applicable-not attempted and the patient did not perform the activity before the current illness, exacerbation or injury. 10-Not Attempted due to Environmental Limitations-(lack of equipment, weather restraints, etc.). 88-Not Attempted due to Medical Conditions or Safety Concerns. Toileting Hygiene (QC): 6 Toilet Transfer (QC): 6 Other Treatment Pt in recliner, used SPC to perform mobility into bathroom and onto toilet. OT had removed BSC from over toilet to simulate home environment, and placed BSC in front of pt to simulate sink in order for pt to pull herself forward off of toilet. Pt completed toileting x5 times, each time she finished wiping, she felt as though she needed to have another BM. Pt independent with toileting, and able to utilize simulated environment safely. Pt stood at sink to wash her hands independently, then used SPC to perform functional mobility to ARU common area. OT and pt talked in depth about home set up and safety. Pt describes her stairs leading up to 2nd floor, having a rail on L side to hold onto and then the R side she holds onto the molding at the floor board to pull herself up the steps. OT attempted to adjust steps in common area to replicate pt's home environment in order to gain a better understanding of pt's home steps, but OT unable to replicate the R railing due to it being lower to the floor. Pt believes that putting GBs at the bottom of the stairs with increase her independence, but OT educated pt on safety aspect and strengthening that needs to be complete in o rder for pt to be able to go up steps. Pt describes how she does laundry, throwing the clothes in a pillowcase from the 2nd floor to the 1st, then tossing the clean clothes up the steps to take them back to the 2nd level. OT educated pt on modifying her environment, keeping all clothes needed on main level, so pt doesn't have to go up the steps. Pt verbalized understanding, but then describes other areas of the home, and doesn't appear to fully understand topics OT is talking about. Pt doesn't have a bathroom on the main level, uses a BSC when too tired to go upstairs, but doesn't have a reliable way to empty commode, and she doesn't have a shower or tub, so she would have to complete sponge baths. OT encouraged pt to allow HH to come into her house in order to problem solve issues and increase with strengthening, pt hesitant to allow others in her house, but informed therapist she will think about it. Pt returned to her room using SPC, SBA, then transferred to recliner. Post tx, pt in recliner, call light in reach and all needs met. Education OT Patient Education: Correct positioning, Energy conservation, Modified ADL techniques, Progress toward Goal/Update tx plan, Purpose of tx/functional activities, Rehab process Teaching Recipient: Patient Teaching Methods: Discussion Response to Teaching: Verbalize Understanding OT Short Term Goals Short Term Goals Time Frame: Jan 16, 2022 Oral hygiene: 5 Shower/bathe self: 5 Lower body dressin Putting on/taking off footwear: 5 OT Fire Lieutenant Goals Fire Lieutenant Goals Time Frame: Jan 30, 2022 Eating (QC): 6 Oral Hygiene (QC): 6 Toileting Hygiene (QC): 6 Shower/Bathe Self (QC): 6 Upper Body Dressing (QC): 6 Lower Body Dressing (QC): 6 On/Off Footwear (QC): 6 Additional Goals: 1-Demonstrate ADL Tasks, 2-Verbalize Understanding, 3- ImproveStrength/[place] 1=Demonstrate adherence to instructed precautions during ADL tasks. 2=Patient will verbalize/demonstrate understanding of assistive devices/modifications for ADL. 3=Patient will improve strength/tolerance for activity to enable patient to perform ADL's. OT Education/Plan Problem List/Assessment Assessment: Decreased Activ Tolerance, Decreased UE Strength, Impaired I ADL's Discharge Recommendations Plan/Recommendations: Continue POC Treatment Plan/Plan of Care Patient would benefit from OT for education, treatment and training to promote independence in ADL's, mobility, safety and/or upper extremity function for ADL's. Plan of Care: ADL Retraining, Functional Mobility, Group Exercise/Act as Ind, UE Funct Exercise/Act Treatment Duration: Jan 30, 2022 Frequency: At least 5 of 7 days/Wk (IRF) Estimated Hrs Per Day: 1.5 hours per day Rehab Potential: Fair Time/GCodes Start Time: 09:00 Stop Time: 10:30 Total Time Billed (hr/min): 90 Billed Treatment Time 1, ADL 6 MEHUL CHOUDHARY OT Jan 14, 2022 11:10
--- NOTE | 2022-01-14 11:48 | PM&R Progress Note ---
Subjective HPI/CC On Admission Date Seen by Provider: Jan 14, 2022 Subjective/Events-last exam 01/15/2022: No major issues Conversation topics vary widely No pain reported Edema of legs makes it difficult to ambulate 01/13/2022: Improved status Wants to stay longer to have someone help her at home Patient walks around in the room ad flakita but then wants to have someone stay with her at home? Checked meds and labs 01/12/2022: No major issues Pain is controlled on her scheduled APAP Refuses to keep legs elevated No other issues 01/11/2022: Improved status Wants to walk around the room without assistance No pain reported 01/10/2022: Needs APAP OA on schedule Frequent urination and jumps up on her own No pain reported 01/09/2022: Pt is doing pretty well Elevated bp noted Checked meds and labs Feels like she is tolerating therapy pretty well Lower extremity edema continues Review of Systems General: Fatigue, Malaise Cardiovascular: Edema Objective Exam Vital Signs Vital Signs Date Time Temp Pulse Resp B/P (MAP) Pulse Ox O2 Delivery O2 Flow Rate FiO2 01/14/22 20:41 96 Nasal Cannula 1.50 01/14/22 19:33 37.0 63 20 178/78 (111) Capillary Refill : General Appearance: No Apparent Distress, WD/WN, Chronically ill, Obese HEENT: PERRL/EOMI, Normal ENT Inspection, Pharynx Normal Neck: Full Range of Motion, Normal Inspection, Non Tender, Supple, Carotid Bruit Respiratory: Chest Non Tender, Lungs Clear, Normal Breath Sounds, No Accessory Muscle Use, No Respiratory Distress Cardiovascular: Regular Rate, Rhythm, No Edema, No Gallop, No JVD, No Murmur, Normal Peripheral Pulses Gastrointestinal: Normal Bowel Sounds, No Organomegaly, No Pulsatile Mass, Non Tender, Soft Back: Normal Inspection, No CVA Tenderness, No Vertebral Tenderness Extremity: Normal Capillary Refill, Normal Inspection, Normal Range of Motion, Non Tender, No Calf Tenderness, No Pedal Edema Neurologic/Psychiatric: Alert, Oriented x3, Normal Mood/Affect, dock operations supervisor II-XII Norm as Tested, Abnormal Gait, Motor Weakness (generalized weakness all extremities) Skin: Normal Color, Warm/Dry Lymphatic: No Adenopathy Results/Procedures Lab Patient resulted labs reviewed. FIM Transfers Therapy Code Descriptions/Definitions Functional [place] Measure: 0=Not Assessed/NA 4=Minimal Assistance 1=Total Assistance 5=Supervision or Setup 2=Maximal Assistance 6=Modified [place] 3=Moderate Assistance 7=Complete IndependenceSCALE: Activities may be completed with or without assistive devices. 4-Agvvxrhcbp-higteoi completes the activity by him/herself with no assistance from a helper. 5-Set-up or Clean-up Assistance-helper sets up or cleans up; patient completes activity. [place] assists only prior to or following the activity. 4-Supervision or Touching Assistance-helper provides verbal cues and/or touching/steadying and/or contact guard assistance as patient completes acti vity. Assistance may be provided throughout the activity or intermittently. 3-Partial/Moderate Assistance-helper does LESS THAN HALF the effort. [place] lifts, holds or supports trunk or limbs, but provides less than half the effort. 2-Substantial/Maximal Assistance-helper does MORE THAN HALF the effort. [place] lifts or holds trunk or limbs and provides more than half the effort. 7-Znzncgari-ugqxoe does ALL the effort. Patient does none of the effort to complete the activity. Or, the assistance of 2 or more helpers is required for the patient to complete the activity. If activity was not attempted, code reason: 7-Patient Refused. 9-Not Applicable-not attempted and the patient did not perform the activity before the current illness, exacerbation or injury. 10-Not Attempted due to Environmental Limitations-(lack of equipment, weather restraints, etc.). 88-Not Attempted due to Medical Conditions or Safety Concerns. Roll Left to Right (QC): 9 Sit to Lying (QC): 9 Sit to Stand (QC): 6 Chair/Vuu-aw-Ptcam Xfer(QC): 6 Car Transfer (QC): 3 (to assist left LE) Gait Training Does the Patient Walk?: Yes Distance: 75' x2 Walk 10 feet (QC): 6 Walk 50 ft with 2 Turns(QC): 6 Walk 150 ft (QC): 6 Walking 10ft/uneven surface-QC: 4 Gait Persons Needed: 1 Gait Assistive Device: Cane Single Point Wheelchair Training Does the Pt Use a Wheelchair?: No Wheel 50 ft with 2 turns (QC): 9 Wheel 150 ft (QC): 9 Type of Wheelchair: N/A Stair Training Stair Training: Handrails/: 2 handrails #of Steps: 4 1 Step (curb) (QC): 4 4 Steps (QC): 4 12 Steps (QC): 88 Stairs: Pattern: Step to Balance Picking up an Object (QC): 4 ADL-Treatment Eating (QC): 6 Oral Hygiene (QC): 6 Shower/Bathe Self (QC): 6 Upper Body Dressing (QC): 6 Lower Body Dressing (QC): 6 On/Off Footwear (QC): 6 Toileting Hygiene (QC): 6 Toilet Transfer (QC): 6 Assessment/Plan Assessment and Plan Assess & Plan/Chief Complaint Assessment: Debility following fall at home with rhabdomyolysis CKD HTN CAD Anemia Metabolic acidosis Lymphedema chronic OA pain Plan: Home meds Monitor kidneys PT OT Fall risk 01/09/2022: Supportive care Monitor closely 01/10/2022: Monitor closely 01/11/2022: Monitor closely Pain control 01/12/2022: Fall risk prevention 01/13/2022: Monitor ADL independence 01/15/2022: Monitor for falls (1) Rhabdomyolysis (2) CKD (chronic kidney disease) (3) CAD (coronary artery disease) (4) Lymphedema (5) Anemia (6) Fall (7) Metabolic acidosis (8) Myopathy CHELA BROOKS DO Jan 14, 2022 11:48
[2022-01-14 19:33] VITALS: BP 178/78
[2022-01-14] MEDS: FAMOTIDINE 20 MG (PEPCID) TABLET PO SCH (20:12)
[2022-01-15] MEDS: KCL 10 MEQ TAB (MICRO K) PO SCH (06:17)
[2022-01-15 08:00] VITALS: BP 196/69
--- NOTE | 2022-01-15 09:10 | Occupational Ther Daily Note ---
OT Current Status-Daily Note Subjective Pt agreeable to OT tx. Pt now requests a discharge date be moved to Wednesday due to it being better for her ride and support at home. Pt mentioned staying on rehab unit until Wednesday vs Swing Bed. OT informed Lead Therapist, Axel, of pt's request. Pt required verbal cues throughout tx to keep O2 NC in nose. Mental Status/Objective Patient Orientation: Person, Place, Situation Attachments: Oxygen (1.5L) ADL-Treatment Therapy Code Descriptions/Definitions Functional [place] Measure: 0=Not Assessed/NA 4=Minimal Assistance 1=Total Assistance 5=Supervision or Setup 2=Maximal Assistance 6=Modified [place] 3=Moderate Assistance 7=Complete IndependenceSCALE: Activities may be completed with or without assistive devices. 7-Qqityywqnl-ksbkrey completes the activity by him/herself with no assistance from a helper. 5-Set-up or Clean-up Assistance-helper sets up or cleans up; patient completes activity. [place] assists only prior to or following the activity. 4-Supervision or Touching Assistance-helper provides verbal cues and/or touching/steadying and/or contact guard assistance as patient completes activity. Assistance may be provided throughout the activity or intermittently. 3-Partial/Moderate Assistance-helper does LESS THAN HALF the effort. [place] lifts, holds or supports trunk or limbs, but provides less than half the effort. 2-Substantial/Maximal Assistance-helper does MORE THAN HALF the effort. [place] lifts or holds trunk or limbs and provides more than half the effort. 3-Rfnodrcyx-sreszs does ALL the effort. Patient does none of the effort to complete the activity. Or, the assistance of 2 or more helpers is required for the patient to complete the activity. If activity was not attempted, code reason: 7-Patient Refused. 9-Not Applicable-not attempted and the patient did not perform the activity before the current illness, exacerbation or injury. 10-Not Attempted due to Environmental Limitations-(lack of equipment, weather restraints, etc.). 88-Not Attempted due to Medical Conditions or Safety Concerns. Eating (QC): 6 Oral Hygiene (QC): 6 Shower/Bathe Self (QC): 6 Upper Body Dressing (QC): 6 Lower Body Dressing (QC): 6 On/Off Footwear: 6 Toileting Hygiene (QC): 6 Toilet Transfer (QC): 6 Other Treatment Pt in recliner in room, used SPC to transfer into bathroom to complete toileting, then stood at sink for oral care. Pt used SPC to gather clothes from closet, then back to bathroom. Pt doffed clothes seated on toilet, then transferred to tub transfer bench. Pt required min A in/out of tub on bench with education on transfer technique. Pt had difficulty getting 2nd leg in/out of tub requiring some assistance. Pt completed shower, then dressed on toilet. Pt used SPC to return to recliner. Post tx, pt in recliner, call light in reach and all needs met. Education OT Patient Education: Correct positioning, Energy conservation, Modified ADL techniques, Progress toward Goal/Update tx plan, Purpose of tx/functional ac tivities, Rehab process Teaching Recipient: Patient Teaching Methods: Discussion Response to Teaching: Verbalize Understanding OT Short Term Goals Short Term Goals Time Frame: Jan 16, 2022 Oral hygiene: 5 Shower/bathe self: 5 Lower body dressin Putting on/taking off footwear: 5 OT [facility] Goals [facility] Goals Time Frame: Jan 30, 2022 Eating (QC): 6 (met) Oral Hygiene (QC): 6 (met) Toileting Hygiene (QC): 6 (met) Shower/Bathe Self (QC): 6 (met) Upper Body Dressing (QC): 6 (met) Lower Body Dressing (QC): 6 (met) On/Off Footwear (QC): 6 (met) Additional Goals: 1-Demonstrate ADL Tasks, 2-Verbalize Understanding, 3- ImproveStrength/[place] 1=Demonstrate adherence to instructed precautions during ADL tasks. 2=Patient will verbalize/demonstrate understanding of assistive devices/modifications for ADL. 3=Patient will improve strength/tolerance for activity to enable patient to perform ADL's. OT Education/Plan Problem List/Assessment Assessment: Decreased Activ Tolerance, Decreased UE Strength, Impaired I ADL's Discharge Recommendations Plan/Recommendations: Continue POC Treatment Plan/Plan of Care Patient would benefit from OT for education, treatment and training to promote independence in ADL's, mobility, safety and/or upper extremity function for AD L's. Plan of Care: ADL Retraining, Functional Mobility, Group Exercise/Act as Ind, UE Funct Exercise/Act Treatment Duration: Jan 30, 2022 Frequency: At least 5 of 7 days/Wk (IRF) Estimated Hrs Per Day: 1.5 hours per day Rehab Potential: Fair Time/GCodes Start Time: 08:00 Stop Time: 09:30 Total Time Billed (hr/min): 90 Billed Treatment Time 1, ADL 6 MEHUL CHOUDHARY OT Jan 15, 2022 09:10
[2022-01-15] MEDS ORDERED: CARV25TA PO (09:39)
[2022-01-15] MEDS ORDERED: CHOL200025 PO (09:39)
[2022-01-15] MEDS ORDERED: ACET-2041 PO (09:44)
[2022-01-15] MEDS ORDERED: NF-SODBICA PO (09:44)
[2022-01-15] MEDS ORDERED: PROT1PAC2 PO (09:47)
[2022-01-15] MEDS: ASPIRIN E.C. 81 MG (ECOTRIN) TAB PO SCH (09:55)
[2022-01-15] MEDS: ACETAMINOPHEN ER 650 MG (TYLENOL ARTHRITIS) PO SCH ×2 (09:55→21:27)
[2022-01-15] MEDS: CALCIUM CARBONATE 600 MG (CALCARB) TAB PO SCH ×2 (09:55→18:02)
[2022-01-15] MEDS: NIFEdipine ER 30 MG (PROCARDIA XL) TAB PO SCH (09:55)
[2022-01-15] MEDS: LACTOBACILLUS ACIDOPHILUS (PROBIOTIC) CAPSULE PO SCH ×2 (09:55→21:26)
[2022-01-15] MEDS: NIFEdipine ER 60 MG (PROCARDIA XL) TAB PO SCH (09:55)
[2022-01-15] MEDS: OMEGA 3 (FISH OIL) 1000 MG CAP PO SCH (09:55)
[2022-01-15] MEDS: SODIUM BICARBONATE 650 MG TABLET PO SCH ×2 (09:56→21:26)
[2022-01-15] MEDS: LOSARTAN 100 MG (COZAAR) TABLET PO SCH (09:56)
[2022-01-15] MEDS: SENNA W/DOCUSATE (SENOKOT S) TABLET PO SCH ×2 (09:58→19:47)
[2022-01-15] MEDS: DOCUSATE SODIUM 100 MG (COLACE) CAP PO SCH ×2 (09:58→19:47)
[2022-01-15] MEDS: polyethylene glycoL POWDER 17 GM (MIRALAX) PACK PO SCH ×2 (09:58→19:47)
[2022-01-15] MEDS: RT-ALBUTEROL SULF 2.5 MG/3 ML PRE-MIX VIAL INH SCH ×2 (10:03→19:22)
--- NOTE | 2022-01-15 10:43 | PM&R Progress Note ---
Subjective HPI/CC On Admission Date Seen by Provider: Jan 15, 2022 Time Seen by Provider: 10:00 Subjective/Events-last exam 01/15/2022: Doing well Hesitant about leaving and going home [place] would be ideal but declines that along with SNF and [facility] SB 01/14/2022: No major issues Conversation topics vary widely No pain reported Edema of legs makes it difficult to ambulate 01/13/2022: Improved status Wants to stay longer to have someone help her at home Patient walks around in the room ad flakita but then wants to have someone stay with her at home? Checked meds and labs 01/12/2022: No major issues Pain is controlled on her scheduled APAP Refuses to keep legs elevated No other issues 01/11/2022: Improved status Wants to walk around the room without assistance No pain reported 01/10/2022: Needs APAP OA on schedule Frequent urination and jumps up on her own No pain reported 01/09/2022: Pt is doing pretty well Elevated bp noted Checked meds and labs Feels like she is tolerating therapy pretty well Lower extremity edema continues Review of Systems General: Fatigue, Malaise Objective Exam Vital Signs Vital Signs Date Time Temp Pulse Resp B/P (MAP) Pulse Ox O2 Delivery O2 Flow Rate FiO2 01/15/22 21:38 37.3 66 16 166/52 (90) 93 Room Air 01/15/22 19:22 1.50 Capillary Refill : General Appearance: No Apparent Distress, WD/WN, Chronically ill, Obese HEENT: PERRL/EOMI, Normal ENT Inspection, Pharynx Normal Neck: Full Range of Motion, Normal Inspection, Non Tender, Supple, Carotid Bruit Respiratory: Chest Non Tender, Lungs Clear, Normal Breath Sounds, No Accessory Muscle Use, No Respiratory Distress Cardiovascular: Regular Rate, Rhythm, No Edema, No Gallop, No JVD, No Murmur, Normal Peripheral Pulses Gastrointestinal: Normal Bowel Sounds, No Organomegaly, No Pulsatile Mass, Non Tender, Soft Back: Normal Inspection, No CVA Tenderness, No Vertebral Tenderness Extremity: Normal Capillary Refill, Normal Inspection, Normal Range of Motion, Non Tender, No Calf Tenderness, No Pedal Edema Neurologic/Psychiatric: Alert, Oriented x3, Normal Mood/Affect, loop cutter II-XII Norm as Tested, Abnormal Gait, Motor Weakness (generalized weakness all extremities) Skin: Normal Color, Warm/Dry Lymphatic: No Adenopathy Results/Procedures Lab Patient resulted labs reviewed. FIM Transfers Therapy Code Descriptions/Definitions Functional [place] Measure: 0=Not Assessed/NA 4=Minimal Assistance 1=Total Assistance 5=Supervision or Setup 2=Maximal Assistance 6=Modified [place] 3=Moderate Assistance 7=Complete IndependenceSCALE: Activities may be completed with or without assistive devices. 7-Xwbwdiqomw-rcahxuz completes the activity by him/herself with no assistance from a helper. 5-Set-up or Clean-up Assistance-helper sets up or cleans up; patient completes activity. [place] assists only prior to or following the activity. 4-Supervision or Touching Assistance-helper provides verbal cues and/or touching/steadying and/or contact guard assistance as patient completes activit y. Assistance may be provided throughout the activity or intermittently. 3-Partial/Moderate Assistance-helper does LESS THAN HALF the effort. [place] lifts, holds or supports trunk or limbs, but provides less than half the effort. 2-Substantial/Maximal Assistance-helper does MORE THAN HALF the effort. [place] lifts or holds trunk or limbs and provides more than half the effort. 8-Tvlyvldcb-gjqdir does ALL the effort. Patient does none of the effort to complete the activity. Or, the assistance of 2 or more helpers is required for the patient to complete the activity. If activity was not attempted, code reason: 7-Patient Refused. 9-Not Applicable-not attempted and the patient did not perform the activity before the current illness, exacerbation or injury. 10-Not Attempted due to Environmental Limitations-(lack of equipment, weather restraints, etc.). 88-Not Attempted due to Medical Conditions or Safety Concerns. Roll Left to Right (QC): 9 Sit to Lying (QC): 9 Sit to Stand (QC): 6 Chair/Sxk-le-Kmkse Xfer(QC): 6 Car Transfer (QC): 3 (to assist left LE) Gait Training Does the Patient Walk?: Yes Distance: 75' x2 Walk 10 feet (QC): 6 Walk 50 ft with 2 Turns(QC): 6 Walk 150 ft (QC): 6 Walking 10ft/uneven surface-QC: 4 Gait Persons Needed: 1 Gait Assistive Device: Cane Single Point Wheelchair Training Does the Pt Use a Wheelchair?: No Wheel 50 ft with 2 turns (QC): 9 Wheel 150 ft (QC): 9 Type of Wheelchair: N/A Stair Training Stair Training: Handrails/: 2 handrails #of Steps: 4 1 Step (curb) (QC): 4 4 Steps (QC): 4 12 Steps (QC): 88 Stairs: Pattern: Step to Balance Picking up an Object (QC): 4 ADL-Treatment Eating (QC): 6 Oral Hygiene (QC): 6 Shower/Bathe Self (QC): 6 Upper Body Dressing (QC): 6 Lower Body Dressing (QC): 6 On/Off Footwear (QC): 6 Toileting Hygiene (QC): 6 Toilet Transfer (QC): 6 Assessment/Plan Assessment and Plan Assess & Plan/Chief Complaint Assessment: Debility following fall at home with rhabdomyolysis CKD HTN CAD Anemia Metabolic acidosis Lymphedema chronic OA pain Plan: Home meds Monitor kidneys PT OT Fall risk 01/09/2022: Supportive care Monitor closely 01/10/2022: Monitor closely 01/11/2022: Monitor closely Pain control 01/12/2022: Fall risk prevention 01/13/2022: Monitor ADL independence 01/14/2022: Monitor for falls 01/15/2022: Improved overall (1) Rhabdomyolysis (2) CKD (chronic kidney disease) (3) CAD (coronary artery disease) (4) Lymphedema (5) Anemia (6) Fall (7) Metabolic acidosis (8) Myopathy CHELA BROOKS DO Jan 15, 2022 10:43
--- NOTE | 2022-01-15 11:28 | Physical Therapy Daily Note ---
PT Daily Note-Current Subjective Pt. agrees to Rx, c/o pain with 1 trial at sit to sup to sit. Pain relieved with upright position Pain Numeric Pain Scale: 5-Moderate Pain Location: Medial Location Body Site: Back Pain Description: Ache Comment: in sup to sit TRF only Mental Status Patient Orientation: Normal For Age Transfers SCALE: Activities may be completed with or without assistive devices. 0-Gzojzijcth-pkkmvkf completes the activity by him/herself with no assistance from a helper. 5-Set-up or Clean-up Assistance-helper sets up or cleans up; patient completes activity. [place] assists only prior to or following the activity. 4-Supervision or Touching Assistance-helper provides verbal cues and/or touching/steadying and/or contact guard assistance as patient completes activity. Assistance may be provided throughout the activity or intermittently. 3-Partial/Moderate Assistance-helper does LESS THAN HALF the effort. [place] lifts, holds or supports trunk or limbs, but provides less than half the effort. 2-Substantial/Maximal Assistance-helper does MORE THAN HALF the effort. [place] lifts or holds trunk or limbs and provides more than half the effort. 0-Mqeyrbysz-obsryr does ALL the effort. Patient does none of the effort to complete the activity. Or, the assistance of 2 or more helpers is required for the patient to complete the activity. If activity was not attempted, code reason: 7-Patient Refused. 9-Not Applicable-not attempted and the patient did not perform the activity before the current illness, exacerbation or injury. 10-Not Attempted due to Environmental Limitations-(lack of equipment, weather restraints, etc.). 88-Not Attempted due to Medical Conditions or Safety Concerns. Roll Left & Right (QC): 3 Sit to Lying (QC): 3 Lying to Sitting/Side of Bed(Q: 3 Sit to Stand (QC): 6 Chair/Pws-cm-Ksuzu Xfer(QC): 6 Toilet Transfer (QC): 6 Car Transfer (QC): 3 Weight Bearing Right Lower Extremity: Right Full Weight Bearing Left Lower Extremity: Left Full Weight Bearing Gait Training Does the Patient Walk?: Yes Walk 10 feet (QC): 6 Walk 50 ft with 2 Turns(QC): 6 Walk 150 ft (QC): 6 Walking 10ft/uneven surface-QC: 6 Gait Persons Needed: 0 Gait Assistive Device: Cane Single Point Wheelchair Training Does the Pt Use a Wheelchair?: No Stair Training Stair Training: Handrails/: 2 handrails #of Steps: 15 1 Step (curb) (QC): 4 4 Steps (QC): 4 12 Steps (QC): 4 Stairs: Pattern: Step to simulated home steps as much as possible Balance Picking up an Object (QC): 5 (filtration plant mechanic) Exercises Seated Therapy Exercises: Ankle pumps, Sit to stand, Long arc quads, Hip flexion, Hip abd/add Seated Reps: 12 NuStep Minutes: 12 NuStep Workload: 1 Treatments QC, gait, ex, TRFs, RT with pt. when PT entered, RT removed O2 stating pt did in t need it, but at steps pt. desatted to 88% ad O2 was reinstated at 2L for remainder of rx Assessment Current Status: Good Progress PT Senior Staff Specialized Employment Goals Nursing Home Goals PT Nursing Home Goals Time Frame: Feb 07, 2022 Roll Left & Right (QC): 6 Sit to Lying (QC): 6 Lying-Sitting on Side/Bed(QC): 6 Sit to Stand (QC): 6 Chair/Pdo-gf-Brztm Xfer(QC): 6 Toilet Transfer (QC): 6 Car Transfer (QC): 6 Does the Patient Walk: Yes Walk 10 feet (QC): 6 Walk 50ft with 2 Turns (QC): 6 Walk 150 ft (QC): 6 Walking 10ft on Uneven Surface: 6 1 Step (curb) (QC): 6 4 Steps (QC): 4 12 Steps (QC): 4 Picking up an Object (QC): 6 Wheel 50 feet with 2 turns (QC: 9 Type: N/A Wheel 150 feet: 9 Type: N/A PT Plan Treatment/Plan Treatment Plan: Continue Plan of Care Treatment Plan: Bed Mobility, Concurrent Therapy, Education, Functional Activity [place], Functional Strength, Group Therapy, Gait, Safety, Therapeutic Exercise, Transfers Treatment Duration: Feb 07, 2022 Frequency: At least 5 of 7 days/Wk (IRF) Estimated Hrs Per Day: 1.5 hours per day Patient and/or Family Agrees t: Yes Safety Risks/Education Patient Education: Gait Training, Transfer Techniques, Steps, Correct Positioning, Disease Process, Safety Issues Teaching Recipient: Patient Teaching Methods: Demonstration, Discussion Response to Teaching: Verbalize Understanding, Return Demonstration, Reinforcement Needed Time/GCodes Time In: 1000 Time Out: 1130 Total Billed Treatment Time: 90 Total Billed Treatment 1,GT30m,FA45m,EX15m ROLAND DARNELL OSTOMY CARE NURSE Jan 15, 2022 11:28
[2022-01-15] MEDS: HYDROCORTISONE 2.5% CREAM (ANUSOL-HC) 30 GM TOP SCH ×2 (11:39→21:32)
[2022-01-15] MEDS: FAMOTIDINE 20 MG (PEPCID) TABLET PO SCH (21:26)
[2022-01-15 21:38] VITALS: BP 166/52
[2022-01-16] MEDS: KCL 10 MEQ TAB (MICRO K) PO SCH (06:07)
[2022-01-16 07:38] VITALS: BP 178/72
[2022-01-16] MEDS: SODIUM BICARBONATE 650 MG TABLET PO SCH ×2 (08:18→22:16)
[2022-01-16] MEDS: NIFEdipine ER 30 MG (PROCARDIA XL) TAB PO SCH (08:18)
[2022-01-16] MEDS: LOSARTAN 100 MG (COZAAR) TABLET PO SCH (08:18)
[2022-01-16] MEDS: ACETAMINOPHEN ER 650 MG (TYLENOL ARTHRITIS) PO SCH ×2 (08:18→22:17)
[2022-01-16] MEDS: LACTOBACILLUS ACIDOPHILUS (PROBIOTIC) CAPSULE PO SCH ×2 (08:18→22:17)
[2022-01-16] MEDS: NIFEdipine ER 60 MG (PROCARDIA XL) TAB PO SCH (08:18)
[2022-01-16] MEDS: ASPIRIN E.C. 81 MG (ECOTRIN) TAB PO SCH (08:18)
[2022-01-16] MEDS: OMEGA 3 (FISH OIL) 1000 MG CAP PO SCH (08:18)
[2022-01-16] MEDS: CALCIUM CARBONATE 600 MG (CALCARB) TAB PO SCH ×2 (08:18→17:03)
[2022-01-16] MEDS: DOCUSATE SODIUM 100 MG (COLACE) CAP PO SCH ×2 (08:19→22:15)
[2022-01-16] MEDS: polyethylene glycoL POWDER 17 GM (MIRALAX) PACK PO SCH ×2 (08:20→22:15)
[2022-01-16] MEDS: SENNA W/DOCUSATE (SENOKOT S) TABLET PO SCH ×2 (08:20→22:15)
[2022-01-16] MEDS: HYDROCORTISONE 2.5% CREAM (ANUSOL-HC) 30 GM TOP SCH ×2 (08:21→22:15)
--- NOTE | 2022-01-16 08:44 | Occupational Ther Daily Note ---
OT Current Status-Daily Note Subjective Pt agreeable to OT tx. Mental Status/Objective Patient Orientation: Person, Place, Time, Situation Acute change in mental status: 0 Inattention: 1 Disorganized thinkin Altered level of consciousness: 0 ADL-Treatment Therapy Code Descriptions/Definitions Functional [place] Measure: 0=Not Assessed/NA 4=Minimal Assistance 1=Total Assistance 5=Supervision or Setup 2=Maximal Assistance 6=Modified [place] 3=Moderate Assistance 7=Complete IndependenceSCALE: Activities may be completed with or without assistive devices. 5-Wzbrltvjsf-bouruxa completes the activity by him/herself with no assistance from a helper. 5-Set-up or Clean-up Assistance-helper sets up or cleans up; patient completes activity. [place] assists only prior to or following the activity. 4-Supervision or Touching Assistance-helper provides verbal cues and/or touching/steadying and/or contact guard assistance as patient completes activity. Assistance may be provided throughout the activity or intermittently. 3-Partial/Moderate Assistance-helper does LESS THAN HALF the effort. [place] lifts, holds or supports trunk or limbs, but provides less than half the effort. 2-Substantial/Maximal Assistance-helper does MORE THAN HALF the effort. [place] lifts or holds trunk or limbs and provides more than half the effort. 1-Chfszabhr-ktysup does ALL the effort. Patient does none of the effort to complete the activity. Or, the assistance of 2 or more helpers is required for the patient to complete the activity. If activity was not attempted, code reason: 7-Patient Refused. 9-Not Applicable-not attempted and the patient did not perform the activity before the current illness, exacerbation or injury. 10-Not Attempted due to Environmental Limitations-(lack of equipment, weather restraints, etc.). 88-Not Attempted due to Medical Conditions or Safety Concerns. Eating (QC): 6 (IND) Oral Hygiene (QC): 6 Upper Body Dressing (QC): 6 Lower Body Dressing (QC): 6 On/Off Footwear: 6 Toileting Hygiene (QC): 6 Toilet Transfer (QC): 6 Other Treatment Pt up in bathroom, agreeable to OT tx. Pt on RA, nurse states okay for pt to remain on RA throughout tx. Pt completed toileting independently, then used SPC in room to gather clothes from closet. Pt changed clothes independently, then used SPC to sink to complete oral care, independently. Pt used SPC to perform functional mobility to therapy gym. OT tx focused on increasing BUE strength and activity tolerance, and increase fine motor strength/coordination. Pt completed x15 mins on arm bike x20-25 Watt resistance, no rest breaks. O2 saturation 97- 99% with task. Pt then removed beads from moderate-heavy resistance (green) theraputty, able to locate all but 1 bead. Pt used SPC to return to room, transferring to recliner. Pt's O2 saturation at 88% on RA, increased to 90%s after ~30 seconds and cues for pursed lip breathing. Nurse notified, and pt left on RA. Education OT Patient Education: Correct positioning, Energy conservation, Modified ADL techniques, Progress toward Goal/Update tx plan, Purpose of tx/functional activities, Rehab process Teaching Recipient: Patient Teaching Methods: Discussion Response to Teaching: Verbalize Understanding OT Short Term Goals Short Term Goals Time Frame: Jan 16, 2022 Oral hygiene: 5 Shower/bathe self: 5 Lower body dressin Putting on/taking off footwear: 5 OT Pipe Bender Goals Pipe Bender Goals Time Frame: Jan 30, 2022 Acute change in mental status: 0 Inattention: 0 Disorganized thinkin Altered level of consciousness: 0 Eating (QC): 6 (met) Oral Hygiene (QC): 6 (met) Toileting Hygiene (QC): 6 (met) Shower/Bathe Self (QC): 6 (met) Upper Body Dressing (QC): 6 (met) Lower Body Dressing (QC): 6 (met) On/Off Footwear (QC): 6 (met) Additional Goals: 1-Demonstrate ADL Tasks, 2-Verbalize Understanding, 3- ImproveStrength/Naomie 1=Demonstrate adherence to instructed precautions during ADL tasks. 2=Patient will verbalize/demonstrate understanding of assistive dev ices/modifications for ADL. 3=Patient will improve strength/tolerance for activity to enable patient to perform ADL's. OT Education/Plan Problem List/Assessment Assessment: Decreased Activ Tolerance, Decreased UE Strength, Impaired I ADL's Discharge Recommendations Plan/Recommendations: Continue POC Treatment Plan/Plan of Care Patient would benefit from OT for education, treatment and training to promote independence in ADL's, mobility, safety and/or upper extremity function for ADL's. Plan of Care: ADL Retraining, Functional Mobility, Group Exercise/Act as Ind, UE Funct Exercise/Act Treatment Duration: Jan 30, 2022 Frequency: At least 5 of 7 days/Wk (IRF) Estimated Hrs Per Day: 1.5 hours per day Rehab Potential: Fair Time/GCodes Start Time: 08:00 Stop Time: 09:30 Total Time Billed (hr/min): 90 Billed Treatment Time 1, ADL 4 (60'), EX (15'), FA (15') MEHUL CHOUDHARY OT Jan 16, 2022 08:44
[2022-01-16] MEDS: RT-ALBUTEROL SULF 2.5 MG/3 ML PRE-MIX VIAL INH SCH ×2 (08:59→21:45)
[2022-01-16 09:33] VITALS: BP 148/61
--- NOTE | 2022-01-16 11:10 | Physical Therapy Daily Note ---
PT Daily Note-Current Subjective Pt. agrees to Rx, upset again this date b/c she is not getting her disability, this COST RECORDER overhearinng her conversation with [place] and Dr Celis office. pt. denies pain this date. pt. states again that she does not want to wear the O2 but does when instructed by PT bc 02sats are mid 80s Pain Location: No Pain Reported Section J - Health Conditions 1. Rarely or not at all 2. Occasionally 3. Frequently 4. Almost constantly 8. Unable to answer Pain Effect on Sleep: 0 Pain Interference with Therapy: 2 Pain Interference w/Day-to-Day: 2 Appearance pt. c/o pain when asked to attempt sit to sup to sit and also with hooklying knees in flexion Mental Status Patient Orientation: Normal For Age Attachments: Oxygen (2L) Transfers SCALE: Activities may be completed with or without assistive devices. 4-Rnsyjrgwdq-lyqumxe completes the activity by him/herself with no assistance from a helper. 5-Set-up or Clean-up Assistance-helper sets up or cleans up; patient completes activity. [place] assists only prior to or following the activity. 4-Supervision or Touching Assistance-helper provides verbal cues and/or touching/steadying and/or contact guard assistance as patient completes activity. Assistance may be provided throughout the activity or intermittently. 3-Partial/Moderate Assistance-helper does LESS THAN HALF the effort. [place] lifts, holds or supports trunk or limbs, but provides less than half the effort. 2-Substantial/Maximal Assistance-helper does MORE THAN HALF the effort. [place] lifts or holds trunk or limbs and provides more than half the effort. 7-Jqlnwazzf-coiyvv does ALL the effort. Patient does none of the effort to complete the activity. Or, the assistance of 2 or more helpers is required for the patient to complete the activity. If activity was not attempted, code reason: 7-Patient Refused. 9-Not Applicable-not attempted and the patient did not perform the activity before the current illness, exacerbation or injury. 10-Not Attempted due to Environmental Limitations-(lack of equipment, weather restraints, etc.). 88-Not Attempted due to Medical Conditions or Safety Concerns. Roll Left & Right (QC): 6 Sit to Lying (QC): 3 Lying to Sitting/Side of Bed(Q: 6 Sit to Stand (QC): 6 Chair/Ady-hz-Hveco Xfer(QC): 6 Toilet Transfer (QC): 6 Weight Bearing Right Lower Extremity: Right Full Weight Bearing Left Lower Extremity: Left Full Weight Bearing Gait Training Does the Patient Walk?: Yes Walk 10 feet (QC): 5 Walk 50 ft with 2 Turns(QC): 5 Walk 150 ft (QC): 5 Gait Persons Needed: 1 Gait Assistive Device: Cane Single Point Exercises Supine Ex: Ankle pumps, Rolling, Heel Slides, Hip abd/add Supine Reps: 12 Seated Therapy Exercises: Ankle pumps, Sit to stand, Long arc quads Seated Reps: 10 NuStep Minutes: 10 NuStep Workload: 1 Treatments TRFs, gait, therex, during bed TRF and gait pts O2 sats decreased to 84%, O2 reinstated at 2L with O2 then at 95%. Assessment Current Status: Good Progress desats with activity, O2 insitu after Rx PT Snf Goals Radiologic Technician Goals PT Radiologic Technician Goals Time Frame: Feb 07, 2022 Roll Left & Right (QC): 6 Sit to Lying (QC): 6 Lying-Sitting on Side/Bed(QC): 6 Sit to Stand (QC): 6 Chair/Rem-us-Bpqik Xfer(QC): 6 Toilet Transfer (QC): 6 Car Transfer (QC): 6 Does the Patient Walk: Yes Walk 10 feet (QC): 6 Walk 50ft with 2 Turns (QC): 6 Walk 150 ft (QC): 6 Walking 10ft on Uneven Surface: 6 1 Step (curb) (QC): 6 4 Steps (QC): 4 12 Steps (QC): 4 Picking up an Object (QC): 6 Wheel 50 feet with 2 turns (QC: 9 Type: N/A Wheel 150 feet: 9 Type: N/A PT Plan Treatment/Plan Treatment Plan: Continue Plan of Care Treatment Plan: Bed Mobility, Concurrent Therapy, Education, Functional Activity Naomie, Functional Strength, Group Therapy, Gait, Safety, Therapeutic Exercise, Transfers Treatment Duration: Feb 07, 2022 Frequency: At least 5 of 7 days/Wk (IRF) Estimated Hrs Per Day: 1.5 hours per day Patient and/or Family Agrees t: Yes Safety Risks/Education Patient Education: Gait Training, Transfer Techniques, Correct Positioning, Disease Process, Safety Issues Teaching Recipient: Patient Teaching Methods: Demonstration, Discussion Response to Teaching: Verbalize Understanding, Return Demonstration, Reinf orcement Needed Time/GCodes Time In: 1000 Time Out: 1100 Total Billed Treatment Time: 60 Total Billed Treatment 1,FA30m,EX15m,GT15m ROLAND DARNELL COST RECORDER Jan 16, 2022 11:10
--- NOTE | 2022-01-16 12:31 | PM&R Progress Note ---
Subjective HPI/CC On Admission Date Seen by Provider: Jan 16, 2022 Time Seen by Provider: 11:30 Subjective/Events-last exam 01/16/2022: Doing well Moving around well Venous stasis dermatitis of the legs assessed Wants to stay another week but insurance will not approve that since she is ambulating well 01/15/2022: Doing well Hesitant about leaving and going home [place] would be ideal but declines that along with SNF and [facility] SB 01/14/2022: No major issues Conversation topics vary widely No pain reported Edema of legs makes it difficult to ambulate 01/13/2022: Improved status Wants to stay longer to have someone help her at home Patient walks around in the room ad flakita but then wants to have someone stay with her at home? Checked meds and labs 01/12/2022: No major issues Pain is controlled on her scheduled APAP Refuses to keep legs elevated No other issues 01/11/2022: Improved status Wants to walk around the room without assistance No pain reported 01/10/2022: Needs APAP OA on schedule Frequent urination and jumps up on her own No pain reported 01/09/2022: Pt is doing pretty well Elevated bp noted Checked meds and labs Feels like she is tolerating therapy pretty well Lower extremity edema continues Review of Systems Cardiovascular: Edema Objective Exam Vital Signs Vital Signs Date Time Temp Pulse Resp B/P (MAP) Pulse Ox O2 Delivery O2 Flow Rate FiO2 01/16/22 21:45 96 Nasal Cannula 1.50 01/16/22 20:06 36.8 63 16 160/60 (93) Capillary Refill : General Appearance: No Apparent Distress, WD/WN, Chronically ill, Obese HEENT: PERRL/EOMI, Normal ENT Inspection, Pharynx Normal Neck: Full Range of Motion, Normal Inspection, Non Tender, Supple, Carotid Bruit Respiratory: Chest Non Tender, Lungs Clear, Normal Breath Sounds, No Accessory Muscle Use, No Respiratory Distress Cardiovascular: Regular Rate, Rhythm, No Edema, No Gallop, No JVD, No Murmur, Normal Peripheral Pulses Gastrointestinal: Normal Bowel Sounds, No Organomegaly, No Pulsatile Mass, Non Tender, Soft Back: Normal Inspection, No CVA Tenderness, No Vertebral Tenderness Extremity: Normal Capillary Refill, Normal Inspection, Normal Range of Motion, Non Tender, No Calf Tenderness, No Pedal Edema Neurologic/Psychiatric: Alert, Oriented x3, Normal Mood/Affect, optomechanical technician II-XII Norm as Tested, Abnormal Gait, Motor Weakness (generalized weakness all extremities) Skin: Normal Color, Warm/Dry Lymphatic: No Adenopathy Results/Procedures Lab Patient resulted labs reviewed. FIM Transfers Therapy Code Descriptions/Definitions Functional [place] Measure: 0=Not Assessed/NA 4=Minimal Assistance 1=Total Assistance 5=Supervision or Setup 2=Maximal Assistance 6=Modified [place] 3=Moderate Assistance 7=Complete IndependenceSCALE: Activities may be completed with or without assistive devices. 1-Irbyyridox-vqzsgac completes the activity by him/herself with no assistance from a helper. 5-Set-up or Clean-up Assistance-helper sets up or cleans up; patient completes activity. [place] assists only prior to or following the activity. 4-Supervision or Touching Assistance-helper provides verbal cues and/or touching/steadying and/or contact guard assistance as patient completes activity. Assistance may be provided throughout the activity or intermittently. 3-Partial/Moderate Assistance-helper does LESS THAN HALF the effort. [place] lifts, holds or supports trunk or limbs, but provides less than half the effort. 2-Substantial/Maximal Assistance-helper does MORE THAN HALF the effort. [place] lifts or holds trunk or limbs and provides more than half the effort. 2-Qoarfzjan-etoiai does ALL the effort. Patient does none of the effort to complete the activity. Or, the assistance of 2 or more helpers is required for the patient to complete the activity. If activity was not attempted, code reason: 7-Patient Refused. 9-Not Applicable-not attempted and the patient did not perform the activity before the current illness, exacerbation or injury. 10-Not Attempted due to Environmental Limitations-(lack of equipment, weather restraints, etc.). 88-Not Attempted due to Medical Conditions or Safety Concerns. Roll Left to Right (QC): 6 Sit to Lying (QC): 3 Sit to Stand (QC): 6 Chair/Nax-rf-Lnxwn Xfer(QC): 6 Car Transfer (QC): 3 Gait Training Does the Patient Walk?: Yes Distance: 75' x2 Walk 10 feet (QC): 5 Walk 50 ft with 2 Turns(QC): 5 Walk 150 ft (QC): 5 Walking 10ft/uneven surface-QC: 6 Gait Persons Needed: 1 Gait Assistive Device: Cane Single Point Wheelchair Training Does the Pt Use a Wheelchair?: No Wheel 50 ft with 2 turns (QC): 9 Wheel 150 ft (QC): 9 Type of Wheelchair: N/A Stair Training Stair Training: Handrails/: 2 handrails #of Steps: 15 1 Step (curb) (QC): 4 4 Steps (QC): 4 12 Steps (QC): 4 Stairs: Pattern: Step to Balance Picking up an Object (QC): 5 (hybrid powertrain development engineer) ADL-Treatment Eating (QC): 6 (IND) Oral Hygiene (QC): 6 Shower/Bathe Self (QC): 6 Upper Body Dressing (QC): 6 Lower Body Dressing (QC): 6 On/Off Footwear (QC): 6 Toileting Hygiene (QC): 6 Toilet Transfer (QC): 6 Assessment/Plan Assessment and Plan Assess & Plan/Chief Complaint Assessment: Debility following fall at home with rhabdomyolysis CKD HTN CAD Anemia Metabolic acidosis Lymphedema chronic OA pain Plan: Home meds Monitor kidneys PT OT Fall risk 01/09/2022: Supportive care Monitor closely 01/10/2022: Monitor closely 01/11/2022: Monitor closely Pain control 01/12/2022: Fall risk prevention 01/13/2022: Monitor ADL independence 01/14/2022: Monitor for falls 01/15/2022: Improved overall 01/16/2022: Monitor progress (1) Rhabdomyolysis (2) CKD (chronic kidney disease) (3) CAD (coronary artery disease) (4) Lymphedema (5) Anemia (6) Fall (7) Metabolic acidosis (8) Myopathy CHELA BROOKS DO Jan 16, 2022 12:31
--- NOTE | 2022-01-16 13:47 | Physical Therapy Daily Note ---
PT Daily Note-Current Subjective Pt. up in recliner, finishing lunch, "states they always over cook this food" Agree to Rx, afterward states she is down in the dumps bc she feels she is not doing as well today referring to the fact that she had declined using O2 for Rx and when sats were checked they were 86% and took about 2 mins to get back up to 90% Pain Location: No Pain Reported Section J - Health Conditions 1. Rarely or not at all 2. Occasionally 3. Frequently 4. Almost constantly 8. Unable to answer Pain Effect on Sleep: 0 Pain Interference with Therapy: 2 Pain Interference w/Day-to-Day: 2 Mental Status Patient Orientation: Normal For Age Attachments: Oxygen (2L) O2 applied at 2L after pts sats were taken after activity and were found in mid upper 80s Transfers SCALE: Activities may be completed with or without assistive devices. 6-Bkhficwjka-fraxofu completes the activity by him/herself with no assistance from a helper. 5-Set-up or Clean-up Assistance-helper sets up or cleans up; patient completes activity. [place] assists only prior to or following the activity. 4-Supervision or Touching Assistance-helper provides verbal cues and/or touchi ng/steadying and/or contact guard assistance as patient completes activity. Assistance may be provided throughout the activity or intermittently. 3-Partial/Moderate Assistance-helper does LESS THAN HALF the effort. [place] lifts, holds or supports trunk or limbs, but provides less than half the effort. 2-Substantial/Maximal Assistance-helper does MORE THAN HALF the effort. [place] lifts or holds trunk or limbs and provides more than half the effort. 2-Xgscstyoy-oljnqj does ALL the effort. Patient does none of the effort to complete the activity. Or, the assistance of 2 or more helpers is required for the patient to complete the activity. If activity was not attempted, code reason: 7-Patient Refused. 9-Not Applicable-not attempted and the patient did not perform the activity before the current illness, exacerbation or injury. 10-Not Attempted due to Environmental Limitations-(lack of equipment, weather restraints, etc.). 88-Not Attempted due to Medical Conditions or Safety Concerns. Sit to Stand (QC): 6 Chair/Xav-lt-Iyyok Xfer(QC): 6 Weight Bearing Right Lower Extremity: Right Full Weight Bearing Left Lower Extremity: Left Full Weight Bearing Gait Training Does the Patient Walk?: Yes Walk 10 feet (QC): 6 Walk 50 ft with 2 Turns(QC): 6 Walk 150 ft (QC): 6 Gait Persons Needed: 1 Gait Assistive Device: FWW pt. was encouraged to use FWW this rx vs SPC to see if her sats would stay up better using a device to conserve energy. Pt. states again however that she cannot get a FWW through her crowded home. No LOB, No noted dyspnea but sats recorded 85% after gait Exercises Seated Therapy Exercises: Ankle pumps, Sit to stand, Long arc quads, Hip abd/add Seated Reps: 12 Treatments gait and monitoring of O2 as recorded above, nursing advised of all findings. Nursing states pt has refused her diuretics consistently since being admitted on unit. Assessment Current Status: Fair Progress O2 sats drop with gait and activity, recovers with rest PT Correction Goals [place] Goals PT Fisher [place]obster Goals Time Frame: Feb 07, 2022 Roll Left & Right (QC): 6 Sit to Lying (QC): 6 Lying-Sitting on Side/Bed(QC): 6 Sit to Stand (QC): 6 Chair/Vsu-td-Stdee Xfer(QC): 6 Toilet Transfer (QC): 6 Car Transfer (QC): 6 Does the Patient Walk: Yes Walk 10 feet (QC): 6 Walk 50ft with 2 Turns (QC): 6 Walk 150 ft (QC): 6 Walking 10ft on Uneven Surface: 6 1 Step (curb) (QC): 6 4 Steps (QC): 4 12 Steps (QC): 4 Picking up an Object (QC): 6 Wheel 50 feet with 2 turns (QC: 9 Type: N/A Wheel 150 feet: 9 Type: N/A PT Plan Treatment/Plan Treatment Plan: Continue Plan of Care Treatment Plan: Bed Mobility, Concurrent Therapy, Education, Functional Activity Naomie, Functional Strength, Group Therapy, Gait, Safety, Therapeutic Exercise, Transfers Treatment Duration: Feb 07, 2022 Frequency: At least 5 of 7 days/Wk (IRF) Estimated Hrs Per Day: 1.5 hours per day Patient and/or Family Agrees t: Yes Safety Risks/Education Patient Education: Gait Training, Transfer Techniques, Correct Positioning, Disease Process, Safety Issues Teaching Recipient: Patient Teaching Methods: Demonstration, Discussion Response to Teaching: Verbalize Understanding, Return Demonstration, Reinforcement Needed Time/GCodes Time In: 1300 Time Out: 1330 Total Billed Treatment Time: 30 Total Billed Treatment 1,GT30m ROLAND DARNELL DIGITAL MARKETING OFFICER Jan 16, 2022 13:47
[2022-01-16] MEDS: FUROSEMIDE 40 MG (LASIX) TAB PO PRN (13:55)
[2022-01-16 20:06] VITALS: BP 160/60
[2022-01-16] MEDS: FAMOTIDINE 20 MG (PEPCID) TABLET PO SCH (22:16)
[2022-01-17] MEDS: KCL 10 MEQ TAB (MICRO K) PO SCH (06:16)
--- NOTE | 2022-01-17 07:11 | PM&R Progress Note ---
Subjective HPI/CC On Admission Date Seen by Provider: Jan 17, 2022 Time Seen by Provider: 11:00 Subjective/Events-last exam 01/17/2022: No major changes Talkative Diff to stay on course with conversation 01/16/2022: Doing well Moving around well Venous stasis dermatitis of the legs assessed Wants to stay another week but insurance will not approve that since she is ambulating well 01/15/2022: Doing well Hesitant about leaving and going home [place] would be ideal but declines that along with SNF and [facility] SB 01/14/2022: No major issues Conversation topics vary widely No pain reported Edema of legs makes it difficult to ambulate 01/13/2022: Improved status Wants to stay longer to have someone help her at home Patient walks around in the room ad flakita but then wants to have someone stay with her at home? Checked meds and labs 01/12/2022: No major issues Pain is controlled on her scheduled APAP Refuses to keep legs elevated No other issues 01/11/2022: Improved status Wants to walk around the room without assistance No pain reported 01/10/2022: Needs APAP OA on schedule Frequent urination and jumps up on her own No pain reported 01/09/2022: Pt is doing pretty well Elevated bp noted Checked meds and labs Feels like she is tolerating therapy pretty well Lower extremity edema continues Review of Systems General: Fatigue Musculoskeletal: back pain Objective Exam Vital Signs Vital Signs Date Time Temp Pulse Resp B/P (MAP) Pulse Ox O2 Delivery O2 Flow Rate FiO2 01/17/22 08:17 95 Nasal Cannula 1.00 01/17/22 07:36 36.2 94 20 142/54 (83) Capillary Refill : General Appearance: No Apparent Distress, WD/WN, Chronically ill, Obese HEENT: PERRL/EOMI, Normal ENT Inspection, Pharynx Normal Neck: Full Range of Motion, Normal Inspection, Non Tender, Supple, Carotid Bruit Respiratory: Chest Non Tender, Lungs Clear, Normal Breath Sounds, No Accessory Muscle Use, No Respiratory Distress Cardiovascular: Regular Rate, Rhythm, No Edema, No Gallop, No JVD, No Murmur, Normal Peripheral Pulses Gastrointestinal: Normal Bowel Sounds, No Organomegaly, No Pulsatile Mass, Non Tender, Soft Back: Normal Inspection, No CVA Tenderness, No Vertebral Tenderness Extremity: Normal Capillary Refill, Normal Inspection, Normal Range of Motion, Non Tender, No Calf Tenderness, No Pedal Edema Neurologic/Psychiatric: Alert, Oriented x3, Normal Mood/Affect, card grinder helper II-XII Norm as Tested, Abnormal Gait, Motor Weakness (generalized weakness all extremities) Skin: Normal Color, Warm/Dry Lymphatic: No Adenopathy Results/Procedures Lab Patient resulted labs reviewed. FIM Transfers Therapy Code Descriptions/Definitions Functional Rankin Measure: 0=Not Assessed/NA 4=Minimal Assistance 1=Total Assistance 5=Supervision or Setup 2=Maximal Assistance 6=Modified Rankin 3=Moderate Assistance 7=Complete IndependenceSCALE: Activities may be completed with or without assistive devices. 1-Lsrhztxxoe-vifuixr completes the activity by him/herself with no assistance from a helper. 5-Set-up or Clean-up Assistance-helper sets up or cleans up; patient completes activity. [place] assists only prior to or following the activity. 4-Supervision or Touching Assistance-helper provides verbal cues and/or touching/steadying and/or contact guard assistance as patient completes activity. Assistance may be provided throughout the activity or intermittently. 3-Partial/Moderate Assistance-helper does LESS THAN HALF the effort. [place] lifts, holds or supports trunk or limbs, but provides less than half the effort. 2-Substantial/Maximal Assistance-helper does MORE THAN HALF the effort. [place] lifts or holds trunk or limbs and provides more than half the effort. 2-Clswweenc-oxilao does ALL the effort. Patient does none of the effort to complete the activity. Or, the assistance of 2 or more helpers is required for the patient to complete the activity. If activity was not attempted, code reason: 7-Patient Refused. 9-Not Applicable-not attempted and the patient did not perform the activity before the current illness, exacerbation or injury. 10-Not Attempted due to Environmental Limitations-(lack of equipment, weather restraints, etc.). 88-Not Attempted due to Medical Conditions or Safety Concerns. Roll Left to Right (QC): 6 Sit to Lying (QC): 3 Sit to Stand (QC): 6 Chair/Uru-ak-Ecrrb Xfer(QC): 6 Car Transfer (QC): 3 Gait Training Does the Patient Walk?: Yes Distance: 75' x2 Walk 10 feet (QC): 6 Walk 50 ft with 2 Turns(QC): 6 Walk 150 ft (QC): 6 Walking 10ft/uneven surface-QC: 6 Gait Persons Needed: 1 Gait Assistive Device: FWW Wheelchair Training Does the Pt Use a Wheelchair?: No Wheel 50 ft with 2 turns (QC): 9 Wheel 150 ft (QC): 9 Type of Wheelchair: N/A Stair Training Stair Training: Handrails/: 2 handrails #of Steps: 15 1 Step (curb) (QC): 4 4 Steps (QC): 4 12 Steps (QC): 4 Stairs: Pattern: Step to Balance Picking up an Object (QC): 5 (spouter) ADL-Treatment Eating (QC): 6 (IND) Oral Hygiene (QC): 6 Shower/Bathe Self (QC): 6 Upper Body Dressing (QC): 6 Lower Body Dressing (QC): 6 On/Off Footwear (QC): 6 Toileting Hygiene (QC): 6 Toilet Transfer (QC): 6 Assessment/Plan Assessment and Plan Assess & Plan/Chief Complaint Assessment: Debility following fall at home with rhabdomyolysis CKD HTN CAD Anemia Metabolic acidosis Lymphedema chronic OA pain Plan: Home meds Monitor kidneys PT OT Fall risk 01/09/2022: Supportive care Monitor closely 01/10/2022: Monitor closely 01/11/2022: Monitor closely Pain control 01/12/2022: Fall risk prevention 01/13/2022: Monitor ADL independence 01/14/2022: Monitor for falls 01/15/2022: Improved overall 01/16/2022: Monitor progress 01/17/2022: Improved status (1) Rhabdomyolysis (2) CKD (chronic kidney disease) (3) CAD (coronary artery disease) (4) Lymphedema (5) Anemia (6) Fall (7) Metabolic acidosis (8) Myopathy CHELA BROOKS DO Jan 17, 2022 07:11
[2022-01-17 07:36] VITALS: BP 142/54
[2022-01-17] MEDS: RT-ALBUTEROL SULF 2.5 MG/3 ML PRE-MIX VIAL INH SCH ×2 (08:15→21:46)
[2022-01-17] MEDS: OMEGA 3 (FISH OIL) 1000 MG CAP PO SCH (09:06)
[2022-01-17] MEDS: SODIUM BICARBONATE 650 MG TABLET PO SCH ×2 (09:06→22:01)
[2022-01-17] MEDS: NIFEdipine ER 60 MG (PROCARDIA XL) TAB PO SCH (09:06)
[2022-01-17] MEDS: CALCIUM CARBONATE 600 MG (CALCARB) TAB PO SCH ×2 (09:06→17:12)
[2022-01-17] MEDS: NIFEdipine ER 30 MG (PROCARDIA XL) TAB PO SCH (09:06)
[2022-01-17] MEDS: LACTOBACILLUS ACIDOPHILUS (PROBIOTIC) CAPSULE PO SCH ×2 (09:06→22:01)
[2022-01-17] MEDS: ASPIRIN E.C. 81 MG (ECOTRIN) TAB PO SCH (09:06)
[2022-01-17] MEDS: LOSARTAN 100 MG (COZAAR) TABLET PO SCH (09:06)
[2022-01-17] MEDS: ACETAMINOPHEN ER 650 MG (TYLENOL ARTHRITIS) PO SCH ×2 (09:12→22:01)
[2022-01-17] MEDS: polyethylene glycoL POWDER 17 GM (MIRALAX) PACK PO SCH ×2 (09:48→22:00)
[2022-01-17] MEDS: DOCUSATE SODIUM 100 MG (COLACE) CAP PO SCH ×2 (09:48→22:00)
[2022-01-17] MEDS: SENNA W/DOCUSATE (SENOKOT S) TABLET PO SCH ×2 (09:49→22:00)
[2022-01-17] MEDS: HYDROCORTISONE 2.5% CREAM (ANUSOL-HC) 30 GM TOP SCH ×2 (09:49→22:00)
--- NOTE | 2022-01-17 10:14 | Physical Therapy Daily Note ---
PT Daily Note-Current Subjective Pt sitting in recliner upon arrival. Pt agrees to ambulation after using BR. Pain Location: No Pain Reported Section J - Health Conditions 1. Rarely or not at all 2. Occasionally 3. Frequently 4. Almost constantly 8. Unable to answer Pain Effect on Sleep: 0 Pain Interference with Therapy: 2 Pain Interference w/Day-to-Day: 2 Mental Status Patient Orientation: Person, Place, Time, Situation Attachments: Oxygen (1L) Transfers SCALE: Activities may be completed with or without assistive devices. 3-Feyhcgzklf-lssunjc completes the activity by him/herself with no assistance from a helper. 5-Set-up or Clean-up Assistance-helper sets up or cleans up; patient completes activity. [place] assists only prior to or following the activity. 4-Supervision or Touching Assistance-helper provides verbal cues and/or touching/steadying and/or contact guard assistance as patient completes activity. Assistance may be provided throughout the activity or intermittently. 3-Partial/Moderate Assistance-helper does LESS THAN HALF the effort. [place] lifts, holds or supports trunk or limbs, but provides less than half the effort. 2-Substantial/Maximal Assistance-helper does MORE THAN HALF the effort. [place] lifts or holds trunk or limbs and provides more than half the effort. 1-Dfuynwvzt-audgaj does ALL the effort. Patient does none of the effort to complete the activity. Or, the assistance of 2 or more helpers is required for the patient to complete the activity. If activity was not attempted, code reason: 7-Patient Refused. 9-Not Applicable-not attempted and the patient did not perform the activity before the current illness, exacerbation or injury. 10-Not Attempted due to Environmental Limitations-(lack of equipment, weather restraints, etc.). 88-Not Attempted due to Medical Conditions or Safety Concerns. Sit to Stand (QC): 5 Toilet Transfer (QC): 5 Weight Bearing Right Lower Extremity: Right Full Weight Bearing Left Lower Extremity: Left Full Weight Bearing Gait Training Does the Patient Walk?: Yes Distance: 250', Walk 10 feet (QC): 5 Walk 50 ft with 2 Turns(QC): 5 Walk 150 ft (QC): 5 Gait Persons Needed: 1 Gait Assistive Device: FWW Pt using both SPC as well as FWW for amb. SPC for short distance and FWW for more extended distances due to fatigue. Wheelchair Training Does the Pt Use a Wheelchair?: No Treatments TF to standing and amb. to BR. After toileting, pt is able to complete pericare. Pt amb. in hallway, taking RB as needed. Pt returns to room at end of walk to rest in recliner. All needs met, call light in hand. Assessment Current Status: Good Progress Pt's O2 is monitored per pt request and remains at 97-98% throughout tx on 1L. PT Distance Learning Coordinator Goals Distance Learning Coordinator Goals PT Distance Learning Coordinator Goals Time Frame: Feb 07, 2022 Roll Left & Right (QC): 6 Sit to Lying (QC): 6 Lying-Sitting on Side/Bed(QC): 6 Sit to Stand (QC): 6 Chair/Cct-zk-Xfxnp Xfer(QC): 6 Toilet Transfer (QC): 6 Car Transfer (QC): 6 Does the Patient Walk: Yes Walk 10 feet (QC): 6 Walk 50ft with 2 Turns (QC): 6 Walk 150 ft (QC): 6 Walking 10ft on Uneven Surface: 6 1 Step (curb) (QC): 6 4 Steps (QC): 4 12 Steps (QC): 4 Picking up an Object (QC): 6 Wheel 50 feet with 2 turns (QC: 9 Type: N/A Wheel 150 feet: 9 Type: N/A PT Plan Problem List Problem List: Activity Tolerance Treatment/Plan Treatment Plan: Continue Plan of Care Treatment Plan: Bed Mobility, Concurrent Therapy, Education, Functional Activity Naomie, Functional Strength, Group Therapy, Gait, Safety, Therapeutic Exercise, Transfers Treatment Duration: Feb 07, 2022 Frequency: At least 5 of 7 days/Wk (IRF) Estimated Hrs Per Day: 1.5 hours per day Patient and/or Family Agrees t: Yes Safety Risks/Education Patient Education: Safety Issues Teaching Recipient: Patient Teaching Methods: Discussion Response to Teaching: Verbalize Understanding Time/GCodes Time In: 920 Time Out: 950 Total Billed Treatment Time: 30 Total Billed Treatment 1, FA (10m) & GT (20m) EDYANIRA MEZA ALLERGIST/MD Jan 17, 2022 10:14
[2022-01-17 20:00] VITALS: BP 132/64
[2022-01-17] MEDS: FAMOTIDINE 20 MG (PEPCID) TABLET PO SCH (22:01)
[2022-01-18] MEDS: KCL 10 MEQ TAB (MICRO K) PO SCH (06:21)
[2022-01-18 07:24] VITALS: BP 150/70
[2022-01-18] MEDS: NIFEdipine ER 30 MG (PROCARDIA XL) TAB PO SCH (07:48)
[2022-01-18] MEDS: SODIUM BICARBONATE 650 MG TABLET PO SCH ×2 (07:49→20:33)
[2022-01-18] MEDS: LACTOBACILLUS ACIDOPHILUS (PROBIOTIC) CAPSULE PO SCH ×2 (07:49→20:33)
[2022-01-18] MEDS: ACETAMINOPHEN ER 650 MG (TYLENOL ARTHRITIS) PO SCH ×2 (07:49→20:33)
[2022-01-18] MEDS: CALCIUM CARBONATE 600 MG (CALCARB) TAB PO SCH ×2 (07:49→17:20)
[2022-01-18] MEDS: ASPIRIN E.C. 81 MG (ECOTRIN) TAB PO SCH (07:49)
[2022-01-18] MEDS: NIFEdipine ER 60 MG (PROCARDIA XL) TAB PO SCH (07:49)
[2022-01-18] MEDS: OMEGA 3 (FISH OIL) 1000 MG CAP PO SCH (07:49)
[2022-01-18] MEDS: LOSARTAN 100 MG (COZAAR) TABLET PO SCH (07:49)
[2022-01-18] MEDS: DOCUSATE SODIUM 100 MG (COLACE) CAP PO SCH ×2 (07:58→20:34)
[2022-01-18] MEDS: polyethylene glycoL POWDER 17 GM (MIRALAX) PACK PO SCH ×2 (07:58→20:34)
[2022-01-18] MEDS: SENNA W/DOCUSATE (SENOKOT S) TABLET PO SCH ×2 (07:59→20:34)
[2022-01-18] MEDS: HYDROCORTISONE 2.5% CREAM (ANUSOL-HC) 30 GM TOP SCH ×2 (07:59→20:38)
[2022-01-18] MEDS: RT-ALBUTEROL SULF 2.5 MG/3 ML PRE-MIX VIAL INH SCH ×2 (08:19→21:32)
--- NOTE | 2022-01-18 08:33 | PM&R Progress Note ---
Subjective HPI/CC On Admission Date Seen by Provider: Jan 18, 2022 Time Seen by Provider: 16:00 Subjective/Events-last exam 01/18/2022: Multiple complaints Wants to stay another week No pain reported except hips and knees chronic O2 maintained at times 01/17/2022: No major changes Talkative Diff to stay on course with conversation 01/16/2022: Doing well Moving around well Venous stasis dermatitis of the legs assessed Wants to stay another week but insurance will not approve that since she is ambulating well 01/15/2022: Doing well Hesitant about leaving and going home [place] would be ideal but declines that along with SNF and [facility] SB 01/14/2022: No major issues Conversation topics vary widely No pain reported Edema of legs makes it difficult to ambulate 01/13/2022: Improved status Wants to stay longer to have someone help her at home Patient walks around in the room ad flakita but then wants to have someone stay with her at home? Checked meds and labs 01/12/2022: No major issues Pain is controlled on her scheduled APAP Refuses to keep legs elevated No other issues 01/11/2022: Improved status Wants to walk around the room without assistance No pain reported 01/10/2022: Needs APAP OA on schedule Frequent urination and jumps up on her own No pain reported 01/09/2022: Pt is doing pretty well Elevated bp noted Checked meds and labs Feels like she is tolerating therapy pretty well Lower extremity edema continues Review of Systems General: Fatigue, Malaise Neurological: Change in speech Objective Exam Vital Signs Vital Signs Date Time Temp Pulse Resp B/P (MAP) Pulse Ox O2 Delivery O2 Flow Rate FiO2 01/18/22 21:32 99 Nasal Cannula 1.00 01/18/22 19:59 37.1 61 20 118/54 (75) Capillary Refill : General Appearance: No Apparent Distress, WD/WN, Chronically ill, Obese HEENT: PERRL/EOMI, Normal ENT Inspection, Pharynx Normal Neck: Full Range of Motion, Normal Inspection, Non Tender, Supple, Carotid Bruit Respiratory: Chest Non Tender, Lungs Clear, Normal Breath Sounds, No Accessory Muscle Use, No Respiratory Distress Cardiovascular: Regular Rate, Rhythm, No Edema, No Gallop, No JVD, No Murmur, Normal Peripheral Pulses Gastrointestinal: Normal Bowel Sounds, No Organomegaly, No Pulsatile Mass, Non Tender, Soft Back: Normal Inspection, No CVA Tenderness, No Vertebral Tenderness Extremity: Normal Capillary Refill, Normal Inspection, Normal Range of Motion, Non Tender, No Calf Tenderness, No Pedal Edema Neurologic/Psychiatric: Alert, Oriented x3, Normal Mood/Affect, wellness nurse II-XII Norm as Tested, Abnormal Gait, Motor Weakness (generalized weakness all extremities) Skin: Normal Color, Warm/Dry Lymphatic: No Adenopathy Results/Procedures Lab Patient resulted labs reviewed. FIM Transfers Therapy Code Descriptions/Definitions Functional [place] Measure: 0=Not Assessed/NA 4=Minimal Assistance 1=Total Assistance 5=Supervision or Setup 2=Maximal Assistance 6=Modified [place] 3=Moderate Assistance 7=Complete IndependenceSCALE: Activities may be completed with or without assistive devices. 3-Dtzmkqipey-slcryoy completes the activity by him/herself with no assistance from a helper. 5-Set-up or Clean-up Assistance-helper sets up or cleans up; patient completes activity. [place] assists only prior to or following the activity. 4-Supervision or Touching Assistance-helper provides verbal cues and/or touching/steadying and/or contact guard assistance as patient completes activity. Assistance may be provided throughout the activity or intermittently. 3-Partial/Moderate Assistance-helper does LESS THAN HALF the effort. [place] lifts, holds or supports trunk or limbs, but provides less than half the effort. 2-Substantial/Maximal Assistance-helper does MORE THAN HALF the effort. [place] lifts or holds trunk or limbs and provides more than half the effort. 0-Xtlfkwxmq-gpqqss does ALL the effort. Patient does none of the effort to complete the activity. Or, the assistance of 2 or more helpers is required for the patient to complete the activity. If activity was not attempted, code reason: 7-Patient Refused. 9-Not Applicable-not attempted and the patient did not perform the activity before the current illness, exacerbation or injury. 10-Not Attempted due to Environmental Limitations-(lack of equipment, weather restraints, etc.). 88-Not Attempted due to Medical Conditions or Safety Concerns. Roll Left to Right (QC): 6 Sit to Lying (QC): 3 Sit to Stand (QC): 5 Chair/Luu-xb-Qfoje Xfer(QC): 6 Car Transfer (QC): 3 Gait Training Does the Patient Walk?: Yes Distance: 250', Walk 10 feet (QC): 5 Walk 50 ft with 2 Turns(QC): 5 Walk 150 ft (QC): 5 Walking 10ft/uneven surface-QC: 6 Gait Persons Needed: 1 Gait Assistive Device: FWW Wheelchair Training Does the Pt Use a Wheelchair?: No Wheel 50 ft with 2 turns (QC): 9 Wheel 150 ft (QC): 9 Type of Wheelchair: N/A Stair Training Stair Training: Handrails/: 2 handrails #of Steps: 15 1 Step (curb) (QC): 4 4 Steps (QC): 4 12 Steps (QC): 4 Stairs: Pattern: Step to Balance Picking up an Object (QC): 5 (hospitality associate) ADL-Treatment Eating (QC): 6 (IND) Oral Hygiene (QC): 6 Shower/Bathe Self (QC): 6 Upper Body Dressing (QC): 6 Lower Body Dressing (QC): 6 On/Off Footwear (QC): 6 Toileting Hygiene (QC): 6 Toilet Transfer (QC): 6 Assessment/Plan Assessment and Plan Assess & Plan/Chief Complaint Assessment: Debility following fall at home with rhabdomyolysis CKD HTN CAD Anemia Metabolic acidosis Lymphedema chronic OA pain Plan: Home meds Monitor kidneys PT OT Fall risk 01/09/2022: Supportive care Monitor closely 01/10/2022: Monitor closely 01/11/2022: Monitor closely Pain control 01/12/2022: Fall risk prevention 01/13/2022: Monitor ADL independence 01/14/2022: Monitor for falls 01/15/2022: Improved overall 01/16/2022: Monitor progress 01/17/2022: Improved status 01/18/2022: Improved status (1) Rhabdomyolysis (2) CKD (chronic kidney disease) (3) CAD (coronary artery disease) (4) Lymphedema (5) Anemia (6) Fall (7) Metabolic acidosis (8) Myopathy CHELA BROOKS DO Jan 18, 2022 08:33
[2022-01-18] MEDS: FUROSEMIDE 40 MG (LASIX) TAB PO PRN (11:57)
[2022-01-18] MEDS: ACETAMINOPHEN 325 MG TABLET PO PRN (12:11)
[2022-01-18 15:30] VITALS: BP 100/52
[2022-01-18 19:59] VITALS: BP 118/54
[2022-01-18] MEDS: FAMOTIDINE 20 MG (PEPCID) TABLET PO SCH (20:33)
[2022-01-19 05:57] LABS: BASOPHILS % (AUTO) 1 % (0-10); EOSINOPHILS # (AUTO) 0.1 10^3/uL (0.0-0.3); EOSINOPHILS % (AUTO) 4 % (0-10); HEMATOCRIT 27 % (35-52); HEMOGLOBIN 8.6 g/dL (11.5-16.0); LYMPHOCYTES # (AUTO) 0.7 10^3/uL (1.0-4.0); LYMPHOCYTES % (AUTO) 17 % (12-44); MEAN CORPUSCULAR HEMOGLOBIN 32 pg (25-34); MEAN CORPUSCULAR HGB CONC 33 g/dL (32-36); MEAN CORPUSCULAR VOLUME 97 fL (80-99); MEAN PLATELET VOLUME 10.3 fL (9.0-12.2); MONOCYTES # (AUTO) 0.5 10^3/uL (0.0-1.0); MONOCYTES % (AUTO) 13 % (0-12); NEUTROPHILS # (AUTO) 2.6 10^3/uL (1.8-7.8); NEUTROPHILS % (AUTO) 65 % (42-75); PLATELET COUNT 171 10^3/uL (130-400)
[2022-01-19] MEDS: KCL 10 MEQ TAB (MICRO K) PO SCH (06:00)
[2022-01-19 06:16] LABS: BILIRUBIN,TOTAL 0.3 MG/DL (0.1-1.0); CALCIUM 8.8 MG/DL (8.5-10.1); CREATININE SERUM 1.43 MG/DL (0.60-1.30); POTASSIUM 4.5 MMOL/L (3.6-5.0); TOTAL PROTEIN 5.5 GM/DL (6.4-8.2)
[2022-01-19] MEDS: RT-ALBUTEROL SULF 2.5 MG/3 ML PRE-MIX VIAL INH SCH ×2 (07:35→21:05)
[2022-01-19 07:48] VITALS: BP 132/72
[2022-01-19] MEDS: ACETAMINOPHEN ER 650 MG (TYLENOL ARTHRITIS) PO SCH ×2 (08:17→20:02)
[2022-01-19] MEDS: LOSARTAN 100 MG (COZAAR) TABLET PO SCH (08:17)
[2022-01-19] MEDS: SODIUM BICARBONATE 650 MG TABLET PO SCH ×2 (08:17→20:02)
[2022-01-19] MEDS: ASPIRIN E.C. 81 MG (ECOTRIN) TAB PO SCH (08:18)
[2022-01-19] MEDS: CALCIUM CARBONATE 600 MG (CALCARB) TAB PO SCH ×2 (08:18→17:14)
[2022-01-19] MEDS: OMEGA 3 (FISH OIL) 1000 MG CAP PO SCH (08:18)
[2022-01-19] MEDS: LACTOBACILLUS ACIDOPHILUS (PROBIOTIC) CAPSULE PO SCH ×2 (08:18→20:02)
[2022-01-19] MEDS: NIFEdipine ER 30 MG (PROCARDIA XL) TAB PO SCH (08:18)
[2022-01-19] MEDS: NIFEdipine ER 60 MG (PROCARDIA XL) TAB PO SCH (08:18)
[2022-01-19] MEDS: polyethylene glycoL POWDER 17 GM (MIRALAX) PACK PO SCH ×2 (09:00→19:22)
[2022-01-19] MEDS: DOCUSATE SODIUM 100 MG (COLACE) CAP PO SCH ×2 (09:00→19:22)
[2022-01-19] MEDS: HYDROCORTISONE 2.5% CREAM (ANUSOL-HC) 30 GM TOP SCH ×2 (09:00→19:22)
[2022-01-19] MEDS: SENNA W/DOCUSATE (SENOKOT S) TABLET PO SCH ×2 (09:00→19:22)
--- NOTE | 2022-01-19 10:10 | Physical Therapy Daily Note ---
PT Daily Note-Current Subjective Pt sitting in recliner upon arrival. Pt agrees to PT but reports not being ready to d/c tomorrow as she feels SOA at times and "doesn't feel like herself." Pain Section J - Health Conditions 1. Rarely or not at all 2. Occasionally 3. Frequently 4. Almost constantly 8. Unable to answer Pain Effect on Sleep: 0 Pain Interference with Therapy: 2 Pain Interference w/Day-to-Day: 2 Mental Status Patient Orientation: Person, Place, Situation Attachments: Oxygen (1L) Transfers SCALE: Activities may be completed with or without assistive devices. 8-Melmbghfxx-asxntrr completes the activity by him/herself with no assistance from a helper. 5-Set-up or Clean-up Assistance-helper sets up or cleans up; patient completes activity. [place] assists only prior to or following the activity. 4-Supervision or Touching Assistance-helper provides verbal cues and/or touching/steadying and/or contact guard assistance as patient completes activity. Assistance may be provided throughout the activity or intermittently. 3-Partial/Moderate Assistance-helper does LESS THAN HALF the effort. [place] lifts, holds or supports trunk or limbs, but provides less than half the effort. 2-Substantial/Maximal Assistance-helper does MORE THAN HALF the effort. [place] lifts or holds trunk or limbs and provides more than half the effort. 6-Xzrphsguw-tvuwex does ALL the effort. Patient does none of the effort to complete the activity. Or, the assistance of 2 or more helpers is required for the patient to complete the activity. If activity was not attempted, code reason: 7-Patient Refused. 9-Not Applicable-not attempted and the patient did not perform the activity before the current illness, exacerbation or injury. 10-Not Attempted due to Environmental Limitations-(lack of equipment, weather restraints, etc.). 88-Not Attempted due to Medical Conditions or Safety Concerns. Roll Left & Right (QC): 7 Sit to Lying (QC): 7 Lying to Sitting/Side of Bed(Q: 7 Sit to Stand (QC): 6 Chair/Hvi-yl-Weoob Xfer(QC): 6 Toilet Transfer (QC): 6 Car Transfer (QC): 4 (with the use of gait belt looped to allow pt to pull L LE into car) Weight Bearing Right Lower Extremity: Right Full Weight Bearing Left Lower Extremity: Left Full Weight Bearing Gait Training Does the Patient Walk?: Yes Distance: 150' x2 Walk 10 feet (QC): 6 Walk 50 ft with 2 Turns(QC): 6 Walk 150 ft (QC): 6 Walking 10ft/uneven surface-QC: 6 Gait Assistive Device: FWW SPC is fatiguing pt too quickly per pt Wheelchair Training Does the Pt Use a Wheelchair?: No Stair Training #of Steps: 8 1 Step (curb) (QC): 4 4 Steps (QC): 4 12 Steps (QC): 7 Stairs: Pattern: Step to Balance Picking up an Object (QC): 5 Treatments Pt completed QC scoring items listed above. These require several RB throughout tx. Pt needs redirection at times to stay on task. All need met, call light in hand. Assessment Current Status: Fair Progress O2 drops to 87% after amb. and car transfer where pt exerts more effort to complete task. Pt also drops to 90% after amb. back to room but quickly recovers to 98%. Pt at times self limits when task is not wanted to be completed. PT Crime Prevention Worker Goals Crime Prevention Worker Goals PT Senior Care Goals Time Frame: Feb 07, 2022 Roll Left & Right (QC): 6 Sit to Lying (QC): 6 Lying-Sitting on Side/Bed(QC): 6 Sit to Stand (QC): 6 Chair/Pfg-kv-Mgjru Xfer(QC): 6 Toilet Transfer (QC): 6 Car Transfer (QC): 6 Does the Patient Walk: Yes Walk 10 feet (QC): 6 Walk 50ft with 2 Turns (QC): 6 Walk 150 ft (QC): 6 Walking 10ft on Uneven Surface: 6 1 Step (curb) (QC): 6 4 Steps (QC): 4 12 Steps (QC): 4 Picking up an Object (QC): 6 Wheel 50 feet with 2 turns (QC: 9 Type: N/A Wheel 150 feet: 9 Type: N/A PT Plan Problem List Problem List: Activity Tolerance, Functional Strength Treatment/Plan Treatment Plan: Continue Plan of Care Treatment Plan: Bed Mobility, Concurrent Therapy, Education, Functional Activity Naomie, Functional Strength, Group Therapy, Gait, Safety, Therapeutic Exercise, Transfers Treatment Duration: Feb 07, 2022 Frequency: At least 5 of 7 days/Wk (IRF) Estimated Hrs Per Day: 1.5 hours per day Patient and/or Family Agrees t: Yes Safety Risks/Education Patient Education: Correct Positioning, Safety Issues Teaching Recipient: Patient Teaching Methods: Discussion Response to Teaching: Verbalize Understanding Time/GCodes Time In: 800 Time Out: 900 Total Billed Treatment Time: 60 Total Billed Treatment 800-900: 1, GT (20m) & FA x3 (40m) [id number]: 1, FA x3 (40m) DEYANIRA MEZA MAINTENANCE MILLWRIGHT Jan 19, 2022 10:10
--- NOTE | 2022-01-19 11:02 | PM&R Progress Note ---
Subjective HPI/CC On Admission Date Seen by Provider: Jan 19, 2022 Time Seen by Provider: 09:00 Subjective/Events-last exam 01/19/2022: Pt will discharge on Wednesday Overall doing well Ambulating around well No pain 01/18/2022: Multiple complaints Wants to stay another week No pain reported except hips and knees chronic O2 maintained at times 01/17/2022: No major changes Talkative Diff to stay on course with conversation 01/16/2022: Doing well Moving around well Venous stasis dermatitis of the legs assessed Wants to stay another week but insurance will not approve that since she is ambulating well 01/15/2022: Doing well Hesitant about leaving and going home [facility] would be ideal but declines that along with SNF and [facility] SB 01/14/2022: No major issues Conversation topics vary widely No pain reported Edema of legs makes it difficult to ambulate 01/13/2022: Improved status Wants to stay longer to have someone help her at home Patient walks around in the room ad flakita but then wants to have someone stay with her at home? Checked meds and labs 01/12/2022: No major issues Pain is controlled on her scheduled APAP Refuses to keep legs elevated No other issues 01/11/2022: Improved status Wants to walk around the room without assistance No pain reported 01/10/2022: Needs APAP OA on schedule Frequent urination and jumps up on her own No pain reported 01/09/2022: Pt is doing pretty well Elevated bp noted Checked meds and labs Feels like she is tolerating therapy pretty well Lower extremity edema continues Review of Systems General: Fatigue Objective Exam Vital Signs Vital Signs Date Time Temp Pulse Resp B/P (MAP) Pulse Ox O2 Delivery O2 Flow Rate FiO2 01/19/22 21:06 98 Nasal Cannula 1.00 01/19/22 20:03 36.8 60 16 150/60 (90) Capillary Refill : General Appearance: No Apparent Distress, WD/WN, Chronically ill, Obese HEENT: PERRL/EOMI, Normal ENT Inspection, Pharynx Normal Neck: Full Range of Motion, Normal Inspection, Non Tender, Supple, Carotid Bruit Respiratory: Chest Non Tender, Lungs Clear, Normal Breath Sounds, No Accessory Muscle Use, No Respiratory Distress Cardiovascular: Regular Rate, Rhythm, No Edema, No Gallop, No JVD, No Murmur, Normal Peripheral Pulses Gastrointestinal: Normal Bowel Sounds, No Organomegaly, No Pulsatile Mass, Non Tender, Soft Back: Normal Inspection, No CVA Tenderness, No Vertebral Tenderness Extremity: Normal Capillary Refill, Normal Inspection, Normal Range of Motion, Non Tender, No Calf Tenderness, No Pedal Edema Neurologic/Psychiatric: Alert, Oriented x3, Normal Mood/Affect, computer forensics technician II-XII Norm as Tested, Abnormal Gait, Motor Weakness (generalized weakness all extremities) Skin: Normal Color, Warm/Dry Lymphatic: No Adenopathy Results/Procedures Lab Laboratory Tests 01/19/22 05:50 Patient resulted labs reviewed. FIM Transfers Therapy Code Descriptions/Definitions Functional [place] Measure: 0=Not Assessed/NA 4=Minimal Assistance 1=Total Assistance 5=Supervision or Setup 2=Maximal Assistance 6=Modified [place] 3=Moderate Assistance 7=Complete IndependenceSCALE: Activities may be completed with or without assistive devices. 4-Wqcrriqrzu-hjeejlw completes the activity by him/herself with no assistance from a helper. 5-Set-up or Clean-up Assistance-helper sets up or cleans up; patient completes activity. [place] assists only prior to or following the activity. 4-Supervision or Touching Assistance-helper provides verbal cues and/or touching/steadying and/or contact guard assistance as patient completes activity. Assistance may be provided throughout the activity or intermittently. 3-Partial/Moderate Assistance-helper does LESS THAN HALF the effort. [place] lifts, holds or supports trunk or limbs, but provides less than half the effort. 2-Substantial/Maximal Assistance-helper does MORE THAN HALF the effort. [place] lifts or holds trunk or limbs and provides more than half the effort. 7-Xaaxpszby-fpmvfa does ALL the effort. Patient does none of the effort to complete the activity. Or, the assistance of 2 or more helpers is required for the patient to complete the activity. If activity was not attempted, code reason: 7-Patient Refused. 9-Not Applicable-not attempted and the patient did not perform the activity before the current illness, exacerbation or injury. 10-Not Attempted due to Environmental Limitations-(lack of equipment, weather restraints, etc.). 88-Not Attempted due to Medical Conditions or Safety Concerns. Roll Left to Right (QC): 6 Sit to Lying (QC): 3 Sit to Stand (QC): 6 Chair/Pac-sf-Vgzkj Xfer(QC): 6 Car Transfer (QC): 4 (with the use of gait belt looped to allow pt to pull L LE into car) Gait Training Does the Patient Walk?: Yes Distance: 150' x2 Walk 10 feet (QC): 6 Walk 50 ft with 2 Turns(QC): 6 Walk 150 ft (QC): 6 Walking 10ft/uneven surface-QC: 6 Gait Persons Needed: 1 Gait Assistive Device: FWW Wheelchair Training Does the Pt Use a Wheelchair?: No Wheel 50 ft with 2 turns (QC): 9 Wheel 150 ft (QC): 9 Type of Wheelchair: N/A Stair Training Stair Training: Handrails/: 2 handrails #of Steps: 15 1 Step (curb) (QC): 4 4 Steps (QC): 4 12 Steps (QC): 4 Stairs: Pattern: Step to Balance Picking up an Object (QC): 5 (machine lead burner) ADL-Treatment Eating (QC): 6 (IND) Oral Hygiene (QC): 6 Shower/Bathe Self (QC): 6 Upper Body Dressing (QC): 6 Lower Body Dressing (QC): 6 On/Off Footwear (QC): 6 Toileting Hygiene (QC): 6 Toilet Transfer (QC): 6 Assessment/Plan Assessment and Plan Assess & Plan/Chief Complaint Assessment: Debility following fall at home with rhabdomyolysis CKD HTN CAD Anemia Metabolic acidosis Lymphedema chronic OA pain Plan: Home meds Monitor kidneys PT OT Fall risk 01/09/2022: Supportive care Monitor closely 01/10/2022: Monitor closely 01/11/2022: Monitor closely Pain control 01/12/2022: Fall risk prevention 01/13/2022: Monitor ADL independence 01/14/2022: Monitor for falls 01/15/2022: Improved overall 01/16/2022: Monitor progress 01/17/2022: Improved status 01/18/2022: Improved status 01/19/2022: Monitor BP (1) Rhabdomyolysis (2) CKD (chronic kidney disease) (3) CAD (coronary artery disease) (4) Lymphedema (5) Anemia (6) Fall (7) Metabolic acidosis (8) Myopathy CHELA BROOKS DO Jan 19, 2022 11:02
--- NOTE | 2022-01-19 11:15 | Occupational Ther Daily Note ---
OT Current Status-Daily Note Subjective Pt up in recliner, agreeable to OT Tx. Mental Status/Objective Patient Orientation: Person, Place, Time, Situation Attachments: Oxygen (1L) Acute change in mental status: 0 Inattention: 0 Disorganized thinkin Altered level of consciousness: 0 ADL-Treatment Therapy Code Descriptions/Definitions Functional [place] Measure: 0=Not Assessed/NA 4=Minimal Assistance 1=Total Assistance 5=Supervision or Setup 2=Maximal Assistance 6=Modified [place] 3=Moderate Assistance 7=Complete IndependenceSCALE: Activities may be completed with or without assistive devices. 8-Xktitfkuwj-jovcyke completes the activity by him/herself with no assistance from a helper. 5-Set-up or Clean-up Assistance-helper sets up or cleans up; patient completes activity. [place] assists only prior to or following the activity. 4-Supervision or Touching Assistance-helper provides verbal cues and/or touching/steadying and/or contact guard assistance as patient completes activity. Assistance may be provided throughout the activity or intermittently. 3-Partial/Moderate Assistance-helper does LESS THAN HALF the effort. [place] lifts, holds or supports trunk or limbs, but provides less than half the effort. 2-Substantial/Maximal Assistance-helper does MORE THAN HALF the effort. [place] lifts or holds trunk or limbs and provides more than half the effort. 5-Ndrvzgxao-zezyqo does ALL the effort. Patient does none of the effort to complete the activity. Or, the assistance of 2 or more helpers is required for the patient to complete the activity. If activity was not attempted, code reason: 7-Patient Refused. 9-Not Applicable-not attempted and the patient did not perform the activity before the current illness, exacerbation or injury. 10-Not Attempted due to Environmental Limitations-(lack of equipment, weather restraints, etc.). 88-Not Attempted due to Medical Conditions or Safety Concerns. Eating (QC): 6 Oral Hygiene (QC): 6 Shower/Bathe Self (QC): 6 Upper Body Dressing (QC): 6 Lower Body Dressing (QC): 6 On/Off Footwear: 6 Toileting Hygiene (QC): 6 Toilet Transfer (QC): 6 Other Treatment Pt in recliner, called lunch order independently, then used FWW to gather clothes from closet and transfer into bathroom and onto toilet. Pt doffed clothes and completed toileting, then transferred to tub transfer bench. Pt able to transfer in/out of tub with SBA. Pt completed shower, then transferred to toilet to get dressed. Pt used FWW to go to therapy gym, OT managed O2 tank. In order to increase BUE strength and activity tolerance, pt completed x15 mins on arm bike 15 Watt resistance. Pt returned to her room, transferring to recliner. Call light in reach and all needs met. Education OT Patient Education: Correct positioning, Energy conservation, Modified ADL techniques, Progress toward Goal/Update tx plan, Purpose of tx/functional activities, Rehab process, Safety issues, Transfer techniques, Use of adapted equipment Teaching Recipient: Patient Teaching Methods: Discussion Response to Teaching: Verbalize Understanding OT Short Term Goals Short Term Goals Time Frame: Jan 16, 2022 Oral hygiene: 5 Shower/bathe self: 5 Lower body dressin Putting on/taking off footwear: 5 OT Grinder Machine Setter Goals Grinder Machine Setter Goals Time Frame: Jan 30, 2022 Acute change in mental status: 0 Inattention: 0 Disorganized thinkin Altered level of consciousness: 0 Eating (QC): 6 (met) Oral Hygiene (QC): 6 (met) Toileting Hygiene (QC): 6 (met) Shower/Bathe Self (QC): 6 (met) Upper Body Dressing (QC): 6 (met) Lower Body Dressing (QC): 6 (met) On/Off Footwear (QC): 6 (met) Additional Goals: 1-Demonstrate ADL Tasks, 2-Verbalize Understanding, 3-ImproveStrength/[place] 1=Demonstrate adherence to instructed precautions during ADL tasks. 2=Patient will verbalize/demonstrate understanding of assistive devices/modifications for ADL. 3=Patient will improve strength/tolerance for activity to enable patient to perform ADL's. OT Education/Plan Problem List/Assessment Assessment: Decreased Activ Tolerance, Decreased UE Strength, Impaired I ADL's Discharge Recommendations Plan/Recommendations: Continue POC Treatment Plan/Plan of Care Patient would benefit from OT for education, treatment and training to promote independence in ADL's, mobility, safety and/or upper extremity function for ADL's. Plan of Care: ADL Retraining, Functional Mobility, Group Exercise/Act as Ind, UE Funct Exercise/Act Treatment Duration: Jan 30, 2022 Frequency: At least 5 of 7 days/Wk (IRF) Estimated Hrs Per Day: 1.5 hours per day Rehab Potential: Fair Time/GCodes Start Time: 10:30 Stop Time: 12:00 Total Time Billed (hr/min): 90 Billed Treatment Time 1, ADL 5 (75'), EX (15') MEHUL CHOUDHARY OT Jan 19, 2022 11:15
--- NOTE | 2022-01-19 18:21 | Progress Note ---
PAUL LEVY 01/19/221820: Progress Note CC: Debility following rhabdomyolysis after found down on floor for 20+ hours HPI: This is a 76yoWF clinic patient of Dr Verma who presents to ARU from [facility] after falling at home and found down at home by a neighbor. She was admitted on 12/29/2021 and has been provided supportive care but she continues to have severe weakness and debility. She reports she had never regained her strength following COVID 04/2021. She sees a Wafer Fabrication Operator regularly and she has severe chronic lymphedema which limits her mobility. She suffered contusions on her back and chest. Patient is sitting up in her chair when I visited and reports she is doing okay overall. She has general weakness and endorses bilateral, general leg ache. Her bowels are moving and she is voiding well. Today will discuss OMM treatment with patient and its assistance with recovery. ROS: General: Fatigue, malaise, weakness Extremities: Lower extremity pain Exam: General Appearance: No Apparent Distress, WD/WN, Chronically ill, Obese HEENT: PERRL/EOMI, Respiratory: Chest Non Tender, Lungs Clear, Normal Breath Sounds, No Accessory Muscle Use, No Respiratory Distress Cardiovascular: RRR, No Edema, No Gallop, No JVD, No Murmur, Normal Peripheral Pulses Extremity: Normal Capillary Refill, Normal Inspection, Normal Range of Motion, Non Tender, No Calf Tenderness, No Pedal Edema Neurologic/Psychiatric: Alert, Oriented x3, Normal Mood/Affect, Abnormal Gait, Motor Weakness (generalized weakness all extremities) Skin: Normal Color, Warm/Dry Lymphatic: No Adenopathy Assessment: Debility following fall at home with rhabdomyolysis CKD HTN CAD Anemia Metabolic acidosis Lymphedema chronic OA pain Plan: Discussed OMM treatment with patient and its assistance in recovery. She declined at this time. KENDRA BROOKS DO 01/20/22 0524: Supervisory-Addendum Brief Verification & Attestation Participated in pt care: history, MDM, physical Personally performed: exam, history, MDM, supervision of care Care discussed with: Medical Student Procedures: n/a Results interpretation: Verified all documentation Verification and Attestation of Medical Student E/M Service A medical student performed and documented this service in my presence. I reviewed and verified all information documented by the medical student and made modifications to such information, when appropriate. I personally performed the physical exam and medical decision making. Kendra Brooks, Jan 20, 2022,05:24 PAUL LEVY Jan 19, 2022 18:21 KENDRA BROOKS DO Jan 20, 2022 05:24
[2022-01-19] MEDS: FAMOTIDINE 20 MG (PEPCID) TABLET PO SCH (20:02)
[2022-01-19 20:03] VITALS: BP 150/60
[2022-01-20] MEDS: KCL 10 MEQ TAB (MICRO K) PO SCH (05:34)
[2022-01-20] MEDS ORDERED: CARV3.122 PO (05:44)
[2022-01-20] MEDS ORDERED: LOSA100T57 PO (05:44)
--- NOTE | 2022-01-20 05:45 | D/C HH Face to Face Order ---
D/C HH Face to Face Orders Reconcile Patient Problems Problems Reviewed?: Yes Instructions for Patient HH Patient Instructions/FollowUp: PCP Dr Verma Physician to follow Patient: [place] Discharge Diet for Home: No Restrictions Patient Problems: Debility Patient Data-Allergies,Ht & Wt Patient Allergies: Coded Allergies: Sulfa (Sulfonamides) (Verified Allergy, Unknown, 05/18/07) Home Health Need/Face to Face Date of Face to Face: Jan 20, 2022 Clinical Findings: Generalized weakness and fatigue I have seen Pt ofux-er-cmwj: Yes Discharged To: Home Diagnosis/Conditions: Debility Patient is Homebound due to: [place] fall risk due to instabilty Homebound Status Due to the above stated illness, injury or surgical procedure (medical condition or diagnosis) and associated clinical findings, the patient is homebound because of his/her inability to leave home except with aid of a suppor tive device and/or person AND leaving the home requires a considerable and taxing effort or is medically contraindicated. Pt req the following assistanc: Walker Home Health Nursing Orders Home Health Services Order: Nursing Services, Wood Grainer-Evaluate & Treat, Physical Therapy-Evaluate & Treat [facility] certify that this patient is under my care and that I, a nurse practitioner or a physician; a undertaker assistant working with me, had a face to face encounter that - meets the physician face to face encounter requirements with this patient as dated. CHELA BROOKS DO Jan 20, 2022 05:45
--- NOTE | 2022-01-20 05:45 | Discharge Summary ---
Diagnosis/Chief Complaint Date of Admission Jan 08, 2022 at 13:33 Date of Discharge Discharge Date: Jan 20, 2022 Discharge Diagnosis Assessment: Debility following fall at home with rhabdomyolysis CKD HTN CAD Anemia Metabolic acidosis Lymphedema chronic OA pain Plan: Home meds Monitor kidneys PT OT Fall risk 01/09/2022: Supportive care Monitor closely 01/10/2022: Monitor closely 01/11/2022: Monitor closely Pain control 01/12/2022: Fall risk prevention 01/13/2022: Monitor ADL independence 01/14/2022: Monitor for falls 01/15/2022: Improved overall 01/16/2022: Monitor progress 01/17/2022: Improved status 01/18/2022: Improved status 01/19/2022: Monitor BP (1) Rhabdomyolysis (2) CKD (chronic kidney disease) (3) CAD (coronary artery disease) (4) Lymphedema (5) Anemia (6) Fall (7) Metabolic acidosis (8) Myopathy Discharge Summary Discharge Physical Examination Allergies: Coded Allergies: Sulfa (Sulfonamides) (Verified Allergy, Unknown, 05/18/07) Vitals & I&Os Vital Signs Date Time Temp Pulse Resp B/P (MAP) Pulse Ox O2 Delivery O2 Flow Rate FiO2 01/20/22 13:55 36.9 69 18 156/52 96 Room Air 0.00 General Appearance: Alert, Oriented X3, Cooperative Respiratory: Clear to Auscultation Cardiovascular: Regular Rate Psych/Mental Status: Mental Status NL Hospital Course Was the Problem List Reviewed?: Yes Pt had a lengthy hospital course for 13 days. She was admitted from [facility] acute care after being found down with rhabdomyolysis and acute kidney injury. She underwent aggressive therapy. Labs remained stable and oxygen was weaned. Overall pt did well and participation was good. Although she was hesitant she was discharged in improved condition on home health. Labs (last 24 hrs) Laboratory Tests 01/09/22 05:24: White Blood Count 4.9, Red Blood Count 2.88L, Hemoglobin 9.2L, Hematocrit 28L, Mean Corpuscular Volume 96, Mean Corpuscular Hemoglobin 32, Mean Corpuscular Hemoglobin Concent 34, Red Cell Distribution Width 13.1, Platelet Count 178, Mean Platelet Volume 11.1, Immature Granulocyte % (Auto) 0, Neutrophils (%) (Auto) 72, Lymphocytes (%) (Auto) 14, Monocytes (%) (Auto) 11, Eosinophils (%) (Auto) 2, Basophils (%) (Auto) 1, Neutrophils # (Auto) 3.5, Lymphocytes # (Auto) 0.7L, Monocytes # (Auto) 0.6, Eosinophils # (Auto) 0.1, Basophils # (Auto) 0.0, Immature Granulocyte # (Auto) 0.0, Sodium Level 144, Potassium Level 3.9, Chloride Level 107, Carbon Dioxide Level 27, Anion Gap 10, Blood Urea Nitrogen 16, Creatinine 0.93, Estimat Glomerular Filtration Rate 64, BUN/Creatinine Ratio 17, Glucose Level 79, Calcium Level 8.8, Corrected Calcium 9.7, Total Bilirubin 0.6, Aspartate Amino Transf (AST/SGOT) 32, Alanine Aminotransferase (ALT/SGPT) 35, Alkaline Phosphatase 83, Total Protein 5.5L, Albumin 2.9L 01/11/22 20:11: Glucometer 111H 01/14/22 08:03: Glucometer 122H 01/19/22 05:50: White Blood Count 4.0L, Red Blood Count 2.73L, Hemoglobin 8.6L, Hematocrit 27L, Mean Corpuscular Volume 97, Mean Corpuscular Hemoglobin 32, Mean Corpuscular Hemoglobin Concent 33, Red Cell Distribution Width 12.5, Platelet Count 171, M falguni Platelet Volume 10.3, Immature Granulocyte % (Auto) 1, Neutrophils (%) (Auto) 65, Lymphocytes (%) (Auto) 17, Monocytes (%) (Auto) 13H, Eosinophils (%) (Auto) 4, Basophils (%) (Auto) 1, Neutrophils # (Auto) 2.6, Lymphocytes # (Auto) 0.7L, Monocytes # (Auto) 0.5, Eosinophils # (Auto) 0.1, Basophils # (Auto) 0.0, Immature Granulocyte # (Auto) 0.0, Sodium Level 142, Potassium Level 4.5, Chloride Level 108H, Carbon Dioxide Level 25, Anion Gap 9, Blood Urea Nitrogen 23H, Creatinine 1.43H, Estimat Glomerular Filtration Rate 38, BUN/Creatinine Ratio 16, Glucose Level 75, Calcium Level 8.8, Corrected Calcium 9.6, Total Bilirubin 0.3, Aspartate Amino Transf (AST/SGOT) 17, Alanine Aminotransferase (ALT/SGPT) 17, Alkaline Phosphatase 77, Total Protein 5.5L, Albumin 3.0L Pending Labs Laboratory Tests 01/09/22 05:24: White Blood Count 4.9, Red Blood Count 2.88, Hemoglobin 9.2, Hematocrit 28, Mean Corpuscular Volume 96, Mean Corpuscular Hemoglobin 32, Mean Corpuscular Hemoglobin Concent 34, Red Cell Distribution Width 13.1, Platelet Count 178, Mean Platelet Volume 11.1, Immature Granulocyte % (Auto) 0, Neutrophils (%) (Auto) 72, Lymphocytes (%) (Auto) 14, Monocytes (%) (Auto) 11, Eosinophils (%) (Auto) 2, Basophils (%) (Auto) 1, Neutrophils # (Auto) 3.5, Lymphocytes # (Auto) 0.7, Monocytes # (Auto) 0.6, Eosinophils # (Auto) 0.1, Basophils # (Auto) 0.0, Immature Granulocyte # (Auto) 0.0, Sodium Level 144, Potassium Level 3.9, Chloride Level 107, Carbon Dioxide Level 27, Anion Gap 10, Blood Urea Nitrogen 16, Creatinine 0.93, Estimat Glomerular Filtration Rate 64, BUN/Creatinine Ratio 17, Glucose Level 79, Calcium Level 8.8, Corrected Calcium 9.7, Total Bilirubin 0.6, Aspartate Amino Transf (AST/SGOT) 32, Alanine Aminotransferase (ALT/SGPT) 35, Alkaline Phosphatase 83, Total Protein 5.5, Albumin 2.9 01/11/22 20:11: Glucometer 111 01/14/22 08:03: Glucometer 122 01/19/22 05:50: White Blood Count 4.0, Red Blood Count 2.73, Hemoglobin 8.6, Hematocrit 27, Mean Corpuscular Volume 97, Mean Corpuscular Hemoglobin 32, Mean Corpuscular Hemogl obin Concent 33, Red Cell Distribution Width 12.5, Platelet Count 171, Mean Platelet Volume 10.3, Immature Granulocyte % (Auto) 1, Neutrophils (%) (Auto) 65, Lymphocytes (%) (Auto) 17, Monocytes (%) (Auto) 13, Eosinophils (%) (Auto) 4, Basophils (%) (Auto) 1, Neutrophils # (Auto) 2.6, Lymphocytes # (Auto) 0.7, Monocytes # (Auto) 0.5, Eosinophils # (Auto) 0.1, Basophils # (Auto) 0.0, Immature Granulocyte # (Auto) 0.0, Sodium Level 142, Potassium Level 4.5, Chloride Level 108, Carbon Dioxide Level 25, Anion Gap 9, Blood Urea Nitrogen 23, Creatinine 1.43, Estimat Glomerular Filtration Rate 38, BUN/Creatinine Ratio 16, Glucose Level 75, Calcium Level 8.8, Corrected Calcium 9.6, Total Bilirubin 0.3, Aspartate Amino Transf (AST/SGOT) 17, Alanine Aminotransferase (ALT/SGPT) 17, Alkaline Phosphatase 77, Total Protein 5.5, Albumin 3.0 Discharge Home Medications: Active Scripts Active Losartan Potassium 100 Mg Tablet 100 Mg PO DAILY Carvedilol 3.125 Mg Tablet 3.125 Mg PO BID Reported Beneprotein (Whey Protein Isolate) 6 Gram-25 Kcal/7 Gram Powd.pack 1 Each PO DAILY Sodium Bicarbonate 650 Mg Tablet 1,300 Mg PO DAILY TAKES 2 (650MG) TABS 8 Hour (Acetaminophen) 650 Mg Tablet.er 1,300 Mg PO BID TAKES 2 (650MG) TABS Vitamin D3 (Cholecalciferol (Vitamin D3)) 50 Mcg (2000 Unit) Tablet 50 Mcg PO DAILY Sodium Bicarbonate 650 Mg Tablet 650 Mg PO HS Oyster Shell Calcium (Calcium Carbonate) 500 Mg Calcium (1250 Mg) Tablet 500 Mg PO BID Nifedipine ER (Nifedipine) 90 Mg Tab.er.24 90 Mg PO HS Furosemide 40 Mg Tablet 40 Mg PO DAILY PRN Fish Oil 1,000 mg Softgel (Cleves-3/Dha/Epa/Fish Oil) 1,000 Mg (120 Mg-180 Mg) Capsule 1,000 Mg PO DAILY Famotidine 20 Mg Tablet 20 Mg PO BID Aspirin EC (Aspirin) 81 Mg Tablet.dr 81 Mg PO DAILY Instructions to patient/family Please see electronic discharge instructions given to patient. Diagnosis/Problems Diagnosis/Problems (1) Rhabdomyolysis (2) CKD (chronic kidney disease) (3) CAD (coronary artery disease) (4) Lymphedema (5) Anemia (6) Fall (7) Metabolic acidosis (8) Myopathy CHELA BROOKS DO Jan 20, 2022 05:45
[2022-01-20 07:29] VITALS: BP 156/52
--- NOTE | 2022-01-20 08:28 | Therapy Team Discharge Summary ---
Therapy Discharge Summary Discharge Recommendations Date of Discharge Physical Therapy Patient came to rehab with rhabdomyolysis. Upon evaluation patient rolling with SBA, supine to sit CGA/SBA, sit to supine mod assist, transfers CGA/SBA, car transfer min assist, ambulated 150' with a rolling walker with CGA/SBA ( including 50' with at least 2 turns of 90 degrees and 10' over an uneven surface), went up and down 4 steps using 2 handrails with min/mod assist, and picked up an object from the floor with CGA/SBA. Patient has been performing bed mobility and transfer training, balance and endurance training ,functional strengthening, stair training, gait training, and education. Patient has made fair progress and has met her jail goals for ambulation, sit <-> stand, and transfers. Now, patient refused to perform rolling and supine <-> sit but has previously done it (rolling independent, supine to sit independent, sit to supine min/mod assist), sit <-> stand independent, transfers independent, car transfer CGA/SBA, ambulated 150' with a rolling walker with independence (including 50' with at least 2 turns of 90 degrees and 10' over an uneven surface), went up and down 8 steps using 2 handrails with CGA/SBA, and picked up an object from the floor with setup. Patient is being discharged from this facility today and will be discharged from PT at this time. Roll Left to Right (QC): 7 Sit to Lying (QC): 7 Lying to Sitting/Side of Bed(Q: 7 Sit to Stand (QC): 6 Chair/Hzn-uy-Zqouh Xfer(QC): 6 Toilet Transfer (QC): 5 Car Transfer (QC): 4 (with the use of gait belt looped to allow pt to pull L LE into car) Does the Patient Walk: Yes Mode of Locomotion: Walk Anticipated Mode of Locomotion: Walk Walk 10 feet (QC): 6 Walk 50 ft with 2 Turns(QC): 6 Walk 150 ft (QC): 6 Walking 10ft on uneven surface: 6 Distance: 150' x 2 Gait Assistive Device: FWW Does the Pt Use a Wheelchair: No Wheel 50 ft with 2 turns (QC): 9 Wheel 150 ft (QC): 9 Type of Wheelchair: N/A #of Steps: 8 1 Step (curb) (QC): 4 4 Steps (QC): 4 12 Steps (QC): 7 Balance Sitting Static: Normal Balance Sitting Dynamic: Normal Balance-Standing Static: Normal Picking up an Object (QC): 5 Occupational Therapy Decreased Activ Tolerance, Decreased UE Strength, Impaired I ADL's Eating (QC): 6 Oral Hygiene (QC): 6 Shower/Bathe Self (QC): 6 Upper Body Dressing (QC): 6 Lower Body Dressing (QC): 6 On/Off Footwear (QC): 6 Toileting Hygiene (QC): 6 PT Detention Goals Steel Erector Goals PT Steel Erector Goals Time Frame: Feb 07, 2022 PT OT Pain Eval : Comment: in sup to sit TRF only Scoring Section J - Health Conditions 1. Rarely or not at all 2. Occasionally 3. Frequently 4. Almost constantly 8. Unable to answer Roll Left to Right (QC): 6 Sit to Lying (QC): 6 Lying-Sitting on Side/Bed(QC): 6 Sit to Stand (QC): 6 Chair/Qcn-ho-Enryg Xfer(QC): 6 Car Transfer (QC): 6 Does the Patient Walk: Yes Walk 10 feet (QC): 6 Walk 10ft-Uneven Surface(QC): 6 Walk 50ft with 2 Turns (QC): 6 Walk 150 ft (QC): 6 Wheel 50 feet with 2 turns (QC: 9 1 Step (curb) (QC): 6 4 Steps (QC): 4 12 Steps (QC): 4 Picking up an Object (QC): 6 OT Steel Erector Goals Detention Goals Time Frame: Jan 30, 2022 Acute change in mental status: 0 Inattention: 0 Disorganized thinkin Altered level of consciousness: 0 Eating (QC): 6 (met) Oral Hygiene (QC): 6 (met) Toileting Hygiene (QC): 6 (met) Shower/Bathe Self (QC): 6 (met) Upper Body Dressing (QC): 6 (met) Lower Body Dressing (QC): 6 (met) On/Off Footwear (QC): 6 (met) Additional Goals: 1-Demonstrate ADL Tasks, 2-Verbalize Understanding, 3- ImproveStrength/Naomie 1=Demonstrate adherence to instructed precautions during ADL tasks. 2=Patient will verbalize/demonstrate understanding of assistive devices/modifications for ADL. 3=Patient will improve strength/tolerance for activity to enable patient to perform ADL's. PILO MONACO PT Jan 20, 2022 08:28
[2022-01-20] MEDS: OMEGA 3 (FISH OIL) 1000 MG CAP PO SCH (08:58)
[2022-01-20] MEDS: LOSARTAN 100 MG (COZAAR) TABLET PO SCH (08:58)
[2022-01-20] MEDS: CALCIUM CARBONATE 600 MG (CALCARB) TAB PO SCH (08:58)
[2022-01-20] MEDS: NIFEdipine ER 60 MG (PROCARDIA XL) TAB PO SCH (08:58)
[2022-01-20] MEDS: ASPIRIN E.C. 81 MG (ECOTRIN) TAB PO SCH (08:58)
[2022-01-20] MEDS: LACTOBACILLUS ACIDOPHILUS (PROBIOTIC) CAPSULE PO SCH (08:58)
[2022-01-20] MEDS: ACETAMINOPHEN ER 650 MG (TYLENOL ARTHRITIS) PO SCH (08:58)
[2022-01-20] MEDS: SODIUM BICARBONATE 650 MG TABLET PO SCH (08:58)
[2022-01-20] MEDS: NIFEdipine ER 30 MG (PROCARDIA XL) TAB PO SCH (08:58)
[2022-01-20] MEDS: DOCUSATE SODIUM 100 MG (COLACE) CAP PO SCH (09:00)
[2022-01-20] MEDS: polyethylene glycoL POWDER 17 GM (MIRALAX) PACK PO SCH (09:00)
[2022-01-20] MEDS: HYDROCORTISONE 2.5% CREAM (ANUSOL-HC) 30 GM TOP SCH (09:00)
[2022-01-20] MEDS: SENNA W/DOCUSATE (SENOKOT S) TABLET PO SCH (09:00)
[2022-01-20] MEDS: RT-ALBUTEROL SULF 2.5 MG/3 ML PRE-MIX VIAL INH SCH (09:26)
[2022-01-20 13:55] VITALS: BP 156/52
--- NOTE | 2022-01-20 14:15 | Therapy Team Discharge Summary ---
Therapy Discharge Summary Discharge Recommendations Date of Discharge Therapy D/C Recommendations: Occupational Therapy Home Care Physical Therapy Roll Left to Right (QC): 7 Sit to Lying (QC): 7 Lying to Sitting/Side of Bed(Q: 7 Sit to Stand (QC): 6 Chair/Can-uq-Vuhyv Xfer(QC): 6 Toilet Transfer (QC): 5 Car Transfer (QC): 4 (with the use of gait belt looped to allow pt to pull L LE into car) Does the Patient Walk: Yes Mode of Locomotion: Walk Anticipated Mode of Locomotion: Walk Walk 10 feet (QC): 6 Walk 50 ft with 2 Turns(QC): 6 Walk 150 ft (QC): 6 Walking 10ft on uneven surface: 6 Distance: 150' x 2 Gait Assistive Device: FWW Does the Pt Use a Wheelchair: No Wheel 50 ft with 2 turns (QC): 9 Wheel 150 ft (QC): 9 Type of Wheelchair: N/A #of Steps: 8 1 Step (curb) (QC): 4 4 Steps (QC): 4 12 Steps (QC): 7 Balance Sitting Static: Normal Balance Sitting Dynamic: Normal Balance-Standing Static: Normal Picking up an Object (QC): 5 Occupational Therapy Pt admitted to ARU with rhabdomyolysis. At [facility], pt was independent with ADLS and functional mobility without AD. Upon initial evaluation, pt required set up with eating, UE dressing and showering, SBA oral care, mod A LE dressing, CGA toileting, and max A footwear. OT tx focused on increasing BUE strength and activity tolerance, and increasing safety and independence with ADLs and functional mobility. Pt made good progress, attaining all LTGs. Pt discharged from facility, d/c from OT. Decreased Activ Tolerance, Decreased UE Strength, Impaired I ADL's Eating (QC): 6 Oral Hygiene (QC): 6 Shower/Bathe Self (QC): 6 Upper Body Dressing (QC): 6 Lower Body Dressing (QC): 6 On/Off Footwear (QC): 6 Toileting Hygiene (QC): 6 PT Grinding Machine Operator Portable Goals [facility] Goals PT [facility] Goals Time Frame: Feb 07, 2022 PT OT Pain Eval : Comment: in sup to sit TRF only Scoring Section J - Health Conditions 1. Rarely or not at all 2. Occasionally 3. Frequently 4. Almost constantly 8. Unable to answer Roll Left to Right (QC): 6 Sit to Lying (QC): 6 Lying-Sitting on Side/Bed(QC): 6 Sit to Stand (QC): 6 Chair/Sjh-sw-Udijd Xfer(QC): 6 Car Transfer (QC): 6 Does the Patient Walk: Yes Walk 10 feet (QC): 6 Walk 10ft-Uneven Surface(QC): 6 Walk 50ft with 2 Turns (QC): 6 Walk 150 ft (QC): 6 Wheel 50 feet with 2 turns (QC: 9 1 Step (curb) (QC): 6 4 Steps (QC): 4 12 Steps (QC): 4 Picking up an Object (QC): 6 OT [facility] Goals Grinding Machine Operator Portable Goals Time Frame: Jan 30, 2022 Acute change in mental status: 0 Inattention: 0 Disorganized thinkin Altered level of consciousness: 0 Eating (QC): 6 (met) Oral Hygiene (QC): 6 (met) Toileting Hygiene (QC): 6 (met) Shower/Bathe Self (QC): 6 (met) Upper Body Dressing (QC): 6 (met) Lower Body Dressing (QC): 6 (met) On/Off Footwear (QC): 6 (met) Additional Goals: 1-Demonstrate ADL Tasks, 2-Verbalize Understanding, 3- ImproveStrength/Naomie 1=Demonstrate adherence to instructed precautions during ADL tasks. 2=Patient will verbalize/demonstrate understanding of assistive devices/modifications for ADL. 3=Patient will improve strength/tolerance for activity to enable patient to perform ADL's. MEHUL CHOUDHARY OT Jan 20, 2022 14:15
== END 2022-01-20 13:55 | disposition home health service (06) | DRG 92 ==
PROVIDERS: ADMIT Internal Medicine; ATTEND Internal Medicine
DX: G72.89 Other specified myopathies (principal); E87.2 Acidosis; I25.10 Atherosclerotic heart disease of native coronary artery without angina pectoris; E78.00 Pure hypercholesterolemia, unspecified; I12.9 Hypertensive chronic kidney disease with stage 1 through stage 4 chronic kidney disease, or unspecified chronic kidney disease; N18.9 Chronic kidney disease, unspecified; Z86.16 Personal history of COVID-19; Z79.82 Long term (current) use of aspirin; Z88.2 Allergy status to sulfonamides; D64.9 Anemia, unspecified; I89.0 Lymphedema, not elsewhere classified; R35.0 Frequency of micturition; I87.2 Venous insufficiency (chronic) (peripheral); M19.91 Primary osteoarthritis, unspecified site
CPT/HCPCS: 36415; 80053; 82947; 85025; 94640; 94760; 94761

== ENCOUNTER 2022-06-19 07:54 | Day surgery (SDC) | payer BC, MEDICARE ==
[~2022-06-19] VITALS: Ht 147.3 cm; Wt 62.4 kg
[~2022-06-19 07:54] MED LIST changes: +ACET-2041 PO; +ACET325T38 PO; +ACID1TAB PO; +ALB0.5V INH; +ASPI-1238 PO; +CALC500T35 PO; +CARV25TA PO; +CARV3.122 PO; +CHOL200025 PO; +CHOL4POW14 PO; +FAMO20TA5 PO; +FURO40TA4 PO; +GLUC-219 PO; +LACTINEX PO; +LOSA100T57 PO; +MENT113O12 TP; +NF-SODBICA PO; +NIFE90TA57 PO; +OMEG100032 PO; +POTA-160 PO; +PROT1PAC2 PO
[2022-06-19] MEDS ORDERED: LIDOCAINE 1% INJ 20 ML VIAL ONE (08:08)
[2022-06-19] MEDS ORDERED: NS IV 1000 ML 0 ML ONE (08:09)
[2022-06-19] MEDS ORDERED: HEParin (CATH LAB) 0 ML IV ONE (08:09)
[2022-06-19] MEDS ORDERED: NS IV 1000 ML 1,000 ML IV SCH (08:15)
[2022-06-19 08:27] VITALS: BP 198/97
[2022-06-19 08:43] LABS: BILIRUBIN,URINE NEGATIVE (NEGATIVE); CLARITY,URINE CLEAR; COLOR,URINE YELLOW; GLUCOSE, URINE (UA) NEGATIVE (NEGATIVE); KETONES,URINE NEGATIVE (NEGATIVE); LEUKOCYTE ESTERASE ,URINE NEGATIVE (NEGATIVE); NITRITE,URINE NEGATIVE (NEGATIVE); PROTEIN,URINE 3+ (NEGATIVE)
[2022-06-19] MEDS ORDERED: CHOL100048 PO (09:10)
[2022-06-19] MEDS ORDERED: CARV6.25 PO (09:10)
[2022-06-19] MEDS ORDERED: GLUC-219 PO (09:10)
[2022-06-19] MEDS ORDERED: ACET325T38 PO (09:10)
--- NOTE | 2022-06-19 09:14 | Diagnostic Imaging Report ---
CHEST 1 VIEW, AP/PA ONLY Indication: Right pleural effusion. Comparison: CT chest of 07/02/2020 Findings: Chronic small right pleural effusion is unchanged. No pneumothorax. Stable mild enlargement of the heart. Outside of the small amount of atelectasis in right lung base, lungs are clear. Impression: 1. Stable small right pleural effusion. 2. No adverse development. Dictated by: Dictated on workstation # [id number]
[2022-06-19 09:19] LABS: BACTERIA,URINE FEW /HPF; RBC,URINE RARE /HPF; WBC,URINE 0-2 /HPF
[2022-06-19 09:20] LABS: HYALINE CASTS, URINE 0-2 /LPF
[2022-06-19 09:23] LABS: WHITE BLOOD COUNT 5.2 10^3/uL (4.3-11.0)
[2022-06-19 09:24] LABS: HEMOGLOBIN 9.3 g/dL (11.5-16.0); MEAN PLATELET VOLUME 11.3 fL (9.0-12.2)
== END 2022-06-19 11:00 | disposition home or self-care (01) ==
LOC: CATH 07:54
PROVIDERS: ATTEND Internal Medicine Cardiovascular Disease
DX: I25.10 Atherosclerotic heart disease of native coronary artery without angina pectoris (principal); M79.662 Pain in left lower leg; M79.661 Pain in right lower leg; Q60.0 Renal agenesis, unilateral; R06.09 Other forms of dyspnea; I51.89 Other ill-defined heart diseases; I10 Essential (primary) hypertension; N18.9 Chronic kidney disease, unspecified; I12.9 Hypertensive chronic kidney disease with stage 1 through stage 4 chronic kidney disease, or unspecified chronic kidney disease; E11.22 Type 2 diabetes mellitus with diabetic chronic kidney disease; I65.23 Occlusion and stenosis of bilateral carotid arteries; R42 Dizziness and giddiness; M79.7 Fibromyalgia; E78.2 Mixed hyperlipidemia; Z87.891 Personal history of nicotine dependence; Z90.13 Acquired absence of bilateral breasts and nipples; Z79.899 Other long term (current) drug therapy; Z79.82 Long term (current) use of aspirin; Z53.8 Procedure and treatment not carried out for other reasons
CPT/HCPCS: 36415; 71045; 81000; 85027; 87081; 87088

== ENCOUNTER 2023-01-14 05:37 | Outpatient (CLI) | payer BC, MEDICARE ==
[~2023-01-14] VITALS: Ht 147.3 cm; Wt 68.2 kg
[~2023-01-14 05:37] MED LIST changes: +CARV6.25 PO; +CHOL100048 PO; -LOSA100T57 PO; +LOSA100T58 PO
[2023-01-14] MEDS ORDERED: NF-SODBICA PO ×2 (10:27)
== END 2023-01-14 10:35 | disposition home or self-care (01) ==
LOC: PREOP 05:37
PROVIDERS: ATTEND Specialist
DX: Z01.818 Encounter for other preprocedural examination (principal)

== ENCOUNTER 2023-02-05 09:53 | Day surgery (SDC) | payer BC, MEDICARE ==
[~2023-02-05] VITALS: Ht 147.3 cm; Wt 68.2 kg
[2023-02-05] MEDS ORDERED: LIDOCAINE PF 1% 2 ML VIAL IR PRN (10:00)
[2023-02-05] MEDS ORDERED: MOXIFLOXACIN OPHTH SOLN 5 MG/ML 0.5 ML SYRINGE OP ONE (10:00)
[2023-02-05] MEDS ORDERED: TIMOLOL 0.5% (CATARACTS) 0.3 ML BTL OU PRN (10:00)
[2023-02-05] MEDS ORDERED: POVIDONE IODINE OPHTH SOLN 5% 30 ML OP ONE (10:00)
[2023-02-05] MEDS: TETRACAINE 0.5% OPHTH SOLN 4 ML BTL (SINGLE DOSE ONLY) OU PRN ×4 (10:02→10:21)
[2023-02-05] MEDS: TROPICAMIDE 1% OPH SOLN (MYDRIACYL) 15 ML BTL OP SCH ×3 (10:08→10:21)
[2023-02-05] MEDS: PHENYLEPHRINE 10% OPHTH SOLN 5 ML BTL OU SCH ×3 (10:08→10:21)
--- NOTE | 2023-02-05 10:35 | Ophthalmologist Pre-Op Note ---
Pre-Operative Progress Note H&P Reviewed The H&P was reviewed, patient examined and no changes noted. Date H&P Reviewed: Feb 05, 2023 Time H&P Reviewed: 10:35 Pre-Op Dx Cataract, Right Eye LEANNE CROWDER MD Feb 05, 2023 10:35
[2023-02-05] MEDS ORDERED: MIDAZOLAM INJ 2 MG/2 ML VIAL ONE (10:41)
--- NOTE | 2023-02-05 11:02 | Ophthalmology Operative Report ---
Cataract removal/placement IOL PREOPERATIVE DIAGNOSIS: Cataract Right Eye POSTOPERATIVE DIAGNOSIS: Cataract Right Eye PROCEDURE: Cataract removal and placement of posterior chamber implant, right eye SURGEON: Darron Crowder ANESTHESIA: Topical with sedation COMPLICATIONS: None ESTIMATED BLOOD LOSS: Minimal DESCRIPTION OF PROCEDURE: After proper informed consent was obtained, the patient, a 77 female, was taken to the Operating Room and the right eye was anesthetized with tetracaine. The right eye was then prepped and draped in the usual manner. A wire lid speculum was placed. A paracentesis was made at the left hand position. Preservative free lidocaine was injected into the anterior chamber followed by viscoelastic. A clear corneal incision was made in the temporal position. A capsulorrhexis was preformed and the central nuclear and cortical material were removed. The posterior capsule was polished and Abhijit 23.5 [id number] IOL was placed into the capsular bag. The residual viscoelastic was aspirated and balanced saline solution was injected into the anterior chamber. Moxifloxacin was injected into the anterior chamber. The wound was checked and found to be water tight. The patient tolerated the procedure well without complications. DARRON CROWDER MD Feb 05, 2023 11:02
[2023-02-05 11:10] VITALS: BP 179/66
--- NOTE | 2023-02-05 12:15 | Anesthesia-General Post-Op ---
MAC Patient Condition Mental Status/LOC: Same as Preop Cardiovascular: Satisfactory Nausea/Vomiting: Absent Respiratory: Satisfactory Pain: Controlled Complications: Absent Post Op Complications Complications None Follow Up Care/Instructions Patient Instructions None needed. Anesthesiology Discharge Order Discharge Order Patient was doing well this morning after the procedure with no complaints, stable vital signs, no apparent adverse anesthesia problems. No complications reported per nursing. JIMMY BURNS DO Feb 05, 2023 12:15
== END 2023-02-05 11:11 | disposition home or self-care (01) ==
LOC: SDC 09:53
PROVIDERS: ATTEND Specialist
DX: E11.36 Type 2 diabetes mellitus with diabetic cataract (principal); H25.9 Unspecified age-related cataract; Z87.891 Personal history of nicotine dependence
CPT/HCPCS: 66984; 82947; V2632